=== PATIENT | male | born 1965 | race Caucasian/White ===

== ENCOUNTER 2017-04-22 17:34 | Inpatient (IN) | payer OTHER ==
[~2017-04-22] VITALS: Ht 165.1 cm; Wt 74.9 kg
--- NOTE | ~2017-04-22 | PR ---
[place], [place] PROGRESS NOTE NAME: LISSETH WELLS SR [facility] #: [id number] UNIT #: [id number] ROOM: 404 DOCTOR: JF DE SANTIAGO MD BIRTHDATE: [birth year] DOS: 04/24/2017 CARDIOLOGY PROGRESS NOTE SUBJECTIVE: The patient was seen at his bedside today with multiple family members in attendance. He is a 51-year-old man with a history of heavy cigarette abuse and daily alcohol consumption. He states that he smokes 10 packs of cigarettes a day. He had no previous history of heart disease. He presented to the hospital with worsening dyspnea. He was found to be in atrial fibrillation with a rapid ventricular response. We have been treating him with diltiazem and digoxin, but thus far, he has not converted to sinus rhythm. His rates are somewhat better controlled today, however, with his rates between 80 and 100. He does feel better and is breathing more easily. He denies any chest pain or peripheral edema. PHYSICAL EXAMINATION: VITAL SIGNS: Today, his pulse is 88 and irregularly irregular, blood pressure is 114/56. He is afebrile. He weighs 74.9 kilograms. NECK: Supple. He has no jugular distention. LUNGS: Respirations are unlabored. His chest is clear to auscultation and percussion. HEART: Has an irregularly irregular rhythm. PMI is not felt. He has no gallops or murmurs. ABDOMEN: Soft. EXTREMITIES: Showed no edema. IMPRESSION: 1. Newly documented atrial fibrillation with rapid ventricular response. 2. Heavy cigarette abuse. The patient claims to smoke a carton of cigarettes daily (200 cigarettes daily). 3. Probable chronic obstructive pulmonary disease. 4. Status post cholecystectomy. PLAN: I will start him on oral diltiazem and continue digoxin orally today as well. We will check a digoxin level in the morning. We will continue him on full-dose Lovenox for stroke prophylaxis at this time. We will give him another fluid bolus since this did seem to help stabilize his blood pressure yesterday. I am still hoping that he will convert spontaneously to sinus rhythm. Within the next 24 hours, he should have an echocardiogram done. If his left ventricular size and function appear normal and his left atrium is not significantly dilated, then effort should be made, including possible MECHELLE-guided cardioversion, to get him back in the sinus rhythm. For now, we are keeping him on Lovenox for stroke prophylaxis. He may not be the most ideal candidate for long-term anticoagulation given his history of alcohol and cigarette abuse. Sinus rhythm, however, I think will help improve his feelings of well-being. He was strongly advised to stop smoking and drinking, but it remains to be seen [place], [place] PROGRESS NOTE NAME: LISSETH WELLS SR UNIT #: [id number] ROOM: 404 DOCTOR: JF DE SANTIAGO MD BIRTHDATE: [birth year] whether he will be able to do this. I thank the hospitalist physicians for asking our advice regarding his care. JF DE SANTIAGO MD CM:PNTRANS [id number] JF DE SANTIAGO MD 04/26/17 0615 interface
--- NOTE | ~2017-04-22 | PR ---
[place], [place] PROGRESS NOTE NAME: LISSETH WELLS SR UNIT #: [id number] ROOM: 404 DOCTOR: JESUS DELONG MD BIRTHDATE: [birth year] DOS: 04/25/2017 SUBJECTIVE: The patient is sitting up in chair, he appears to be slightly emotional today. Denies though any specific cardiac complaint. No symptomatic palpitation, no chest pain, no chest pressure, no heaviness or tightness. Significant tremors can be seen. OBJECTIVE: VITAL SIGNS: Blood pressure 99/62, heart rate (heart rate on the monitor in the 90s and ____) 68, respiratory rate of 18, temperature 98.3. NECK: Good upstroke, no bruit. HEART: S1, S2 with no rub. LUNGS: Clear to auscultation. Significant decrease in air movement. No wheezing or rales. ABDOMEN: Soft, nontender, present bowel sounds. EXTREMITIES: Lower extremities, no significant edema. LABORATORY DATA: Potassium 4.3, GFR more than 60%. INR 1.1. ASSESSMENT AND PLAN: 1. New onset atrial fibrillation that appeared to be asymptomatic in a patient with significant history of alcohol and tobacco abuse. The patient continued to be asymptomatic. There is some difficulty in controlling the patient's heart rate, for that we will plan for transesophageal echocardiogram along with cardioversion prior to his discharge home. Echocardiogram still pending and I will recheck in the result this afternoon. For now in view of patient's heart rate, I will proceed to add Lopressor 12.5 mg every 8 hours with holding parameters for systolic blood pressure less than 90. Also, I will plan to add some antiarrhythmic medication given patient's history of alcohol and tobacco abuse, but following the results of the echocardiogram. 2. Tobacco abuse, cessation was emphasized. 3. Alcohol abuse. I will defer management to PCP. 4. History of chronic obstructive pulmonary disease, again management will be deferred to PCP. 5. Increase activity after cardioversion and early followup with Dr. Donato upon discharge within 2-4 weeks. [place], [place] PROGRESS NOTE NAME: LISSETH WELLS SR UNIT #: [id number] ROOM: 404 DOCTOR: JESUS DELONG MD BIRTHDATE: [birth year] JESUS DELONG MD CM:PNTING [id number] JESUS DELONG MD 04/26/17 1713 interface
--- NOTE | ~2017-04-22 | CON ---
[place], [place] REPORT OF CONSULTATION NAME[id number] UN[facility] #: [id number] ROOM: 416 DOCTOR: JF DE SANTIAGO MD BIRTHDATE: [birth year] DOS: 04/23/2017 REASON FOR CONSULTATION: Atrial fibrillation with rapid ventricular response. HISTORY OF PRESENT ILLNESS: The patient is a 51-year-old man who had no previous history of heart disease. He does have a history of heavy cigarette abuse and heavy alcohol consumption. He states that he smokes 10 packs of cigarettes a day. He states that up until a year or so ago, he was smoking 3-4 packs a day, but then his became ill and of cancer and since then he has been smoking much more. He also drinks on a daily basis. He has no previous history of coronary artery disease, myocardial infarction or stroke and has no history of rheumatic fever or heart failure. He states that he has been getting progressively more dyspneic lately. In the last week, especially he has been extremely dyspneic. He had a hard time walking across a room. In addition, he began complaining of a right-sided and then left-sided chest pain radiating into his back. His family became very concerned and insisted that he come to the emergency room. In the emergency room, he was found to be in atrial fibrillation with a rapid ventricular response and was admitted for further care. The patient denies any palpitations or syncope. He denies nausea or vomiting, but he has had diarrhea. He denies diaphoresis. He does complain of fatigue. PAST MEDICAL HISTORY: Includes 1. Essential hypertension. 2. Heavy cigarette abuse with obstructive lung disease. 3. History of cholecystectomy. FAMILY HISTORY: The patient's mother of colon cancer at age 54. His father in his 50s from lung cancer. REVIEW OF SYSTEMS: The patient denies diplopia or loss of vision. He denies focal weakness. He denies lightheadedness or syncope. He has had orthopnea. He has had a persistent cough, which is nonproductive. He denies any hemoptysis or hematemesis. He denies any focal weakness. He denies nausea or vomiting. He denies fevers, chills or sweats. He has been fatigued lately and has had progressively worsening shortness of breath. He denies change in bowel or bladder habits, although he does have diarrhea. He denies blood in his stools or urine. He denies any peripheral edema. He denies any hot or swollen joints. He has not had heat or cold intolerance and denies polyuria or polydipsia. Remainder of the review of systems is negative except as noted above. MEDICATIONS PRIOR TO ADMISSION: The patient stopped going to physicians about 3-4 years ago and has not taken any medications recently. ALLERGIES: The patient has no known drug allergies. SOCIAL HISTORY: The patient lives alone, but has family nearby. As noted above, he does smoke 10 packs of cigarettes per day and does consume [place], [place] REPORT OF CONSULTATION NAME: LISSETH WELLS SR UNIT #: [id number] ROOM: [facility] DOCTOR: JF DE SANTIAGO MD BIRTHDATE: [birth year] considerable amounts of alcohol, but denies the use of any illegal drugs. PHYSICAL EXAMINATION: GENERAL: Reveals a well-nourished white male who looks much older than his stated age. VITAL SIGNS: Pulse is 100 and irregularly irregular. Blood pressure is 100/58. He is afebrile. He weighs 74.9 kg and has a body mass index of 27.5. HEENT: Normocephalic, atraumatic. Extraocular muscles are intact. Sclerae are clear. Pupils are equal, round and react to light. The oral mucosa is moist. Tongue is midline. NECK: Supple. He has no jugular distention or hepatojugular reflux. Carotids are full. I heard no bruits. He had no neck or supraclavicular masses. No thyromegaly. LUNGS: Respirations are unlabored. His chest is clear to auscultation and percussion. He has markedly decreased breath sounds bilaterally, but no obvious wheezes or rales. He has no presacral edema or chest wall tenderness. CARDIOVASCULAR: His heart has an erratic irregularly irregular rhythm, which is slightly accelerated. There are no murmurs or gallops. The PMI is not displaced. There is no precordial heave, lift or thrill. ABDOMEN: Soft and normoactive without masses, organomegaly or bruits. EXTREMITIES: Showed no edema. Peripheral pulses are surprisingly full in the feet and he has normal hair growth on his feet. He has no palpable cords or cyanosis and no clubbing. LABORATORY DATA: I reviewed his electrocardiogram, which showed atrial fibrillation with rapid ventricular response. He does have low voltage in the limb leads and nonspecific ST and T-wave changes. A single troponin level was normal. IMPRESSION: 1. Newly documented atrial fibrillation with rapid ventricular response. 2. Marginal blood pressure, which may be due to dehydration, poor cardiac output, etc. 3. Heavy cigarette abuse. The patient claims to smoke 10 packs of cigarettes (1 carton of cigarettes) daily. 4. Probable chronic obstructive pulmonary disease. 5. Status post cholecystectomy. PLAN: We will continue our efforts to control the patient's rate over the weekend. He is on full dose Lovenox for stroke prophylaxis and we will continue to treat him with IV diltiazem for rate control. I will give him a fluid bolus to help improve his blood pressure and we will also start him on digoxin to hopefully control his rate better. With any luck, he will convert spontaneously; however, if he does not, then I would strongly consider a MECHELLE-guided cardioversion early this coming week. We will get a regular echocardiogram as soon as it is available within the next 2 days. Thyroid profile is already obtained and normal. Further recommendations will depend upon his response to therapy and the results of his noninvasive studies. [place], [place] REPORT OF CONSULTATION NAME: PRISCILLA SRLISSETH Rosana UNIT #: [id number] ROOM: 416 DOCTOR: JF DE SANTIAGO MD BIRTHDATE: [birth year] I thank the hospitalist physicians for asking our advice regarding his care. JF DE SANTIAGO MD CM:CONSTR:REPORT OF CONSULTATION 1453 04/23/17 1746 interface
[2017-04-22 17:40] VITALS: BP 138/84
[2017-04-22 18:07] LABS: BASO % 0.4 % (0.0-1.0); EOS % 0.3 % (1.0-4.0); HEMATOCRIT 47.2 % (42.0-52.0); HEMOGLOBIN 16.5 g/dl (14.0-18.0); LYMPH # 2.9 10*3/uL (1.3-4.4); LYMPH % 28.1 % (27.0-41.0); MEAN CELL VOLUME 84.3 fl (80.0-94.0); MEAN CORPUSCULAR HGB 29.5 pg (27.0-31.0); MEAN PLATELET VOLUME 9.7 fl (9.6-12.3); MONO # 0.9 10*3/uL (0.1-1.0); MONO % 8.3 % (3.0-9.0); NEUT # 6.4 10*3/uL (2.3-7.9); NEUT % 62.7 % (47.0-73.0); PLATELET COUNT AUTOMATED 271 10*3/uL (130-400); RED CELL DISTRI WIDTH 13.9 % (0-14.5); WHITE BLOOD COUNT 10.2 10*3/uL (4.8-10.8)
[2017-04-22 18:23] LABS: ALBUMIN 3.5 gm/dl (3.1-4.5); ALKALINE PHOSPHATASE 122 U/L (45-117); BUN 10 mg/dl (7-24); CHLORIDE 105 mmol/L (98-107); POTASSIUM 3.6 mmol/L (3.5-5.1); SGOT/AST 25 IU/L (3-35); SGPT/ALT 38 U/L (12-78); SODIUM 138 mmol/L (136-145); TOTAL PROTEIN 7.5 gm/dL (6.4-8.2)
[2017-04-22 18:24] LABS: TROPONIN I < 0.015 ng/ml (<0.045)
[2017-04-22 18:34] VITALS: BP 144/87
[2017-04-22 18:54] VITALS: BP 116/93
[2017-04-22 18:58] LABS: ACT PARTIAL THROMBO TIME 24.4 SECONDS (20.8-31.5); INTERNATIONAL NORM RATIO 1.1 (2.0-3.5)
[2017-04-22 19:31] VITALS: BP 124/84
--- NOTE | 2017-04-22 19:43 | NUR ---
CARDIZEM TITRATED TO 15MG/HR
[2017-04-22 20:02] VITALS: BP 115/83
[2017-04-22 21:00] VITALS: BP 122/90
--- NOTE | 2017-04-22 21:00 | NUR ---
A 51, admitted to 4E, under the services of BORIS Mcmanus DO with a diagnosis of AFIB W/RVR. Chief complaint is SHORTNESS OF BREATH,RT SIDED RIB PAIN AROUND TO BACK. Patient arrived via ambulatory from ER. Monitor applied. Initial assessment completed. Vital signs taken and recorded. BORIS MCMANUS DO notified of admission to the unit. Orders received. See assessment for past medical history, medications and allergies. Patient and/or family oriented to unit. [facility] visitation policy reviewed. Clothing/patient valuable form completed. ASPEN URRUTIA
--- NOTE | 2017-04-22 21:01 | NUR ---
PATIENT STATED HE DOESNT TAKE ANY HOME MEDICATIONS, BUT HAD A LIST OF MEDS HE TOOK 3YRS AGO. BUSPIRONE 15MG DAILY,OMEPRAZOLE 20MG DAILY,MONTELUKAST 10MG DAILY,VENTAFAXINE ER 75MG DAILY,HYDROXYZINE PAMOATE 50MG BID,LISINOPRIL 5MG DAILY,BROMIDE INHALATION SOLUTION 0.5,ALBUTEROL 2.5MG TID,QVAR 80MCG BID.
--- NOTE | 2017-04-22 21:31 | NUR ---
CONTACTED DR. DE SANTIAGO FOR CONSULT WILL SEE PATIENT IN THE MORNING.
[2017-04-23] VITALS (12 sets, daily range): BP systolic 94–115; BP diastolic 56–78
[2017-04-23 05:15] LABS: ACT PARTIAL THROMBO TIME 25.2 SECONDS (20.8-31.5); INTERNATIONAL NORM RATIO 1.1 (2.0-3.5)
[2017-04-23 05:36] LABS: ALBUMIN 3.5 gm/dl (3.1-4.5); ALKALINE PHOSPHATASE 116 U/L (45-117); BUN 7 mg/dl (7-24); CHLORIDE 100 mmol/L (98-107); CHOLESTEROL 136 mg/dL (<200); CREATININE 0.77 mg/dL (0.70-1.30); FREE T4 1.26 ng/dl (0.76-1.46); HDL CHOLESTEROL 39 mg/dl (40-60); LDL CHOLESTEROL 76 mg/dL (9-159); MAGNESIUM 2.2 mg/dL (1.5-2.1); PHOSPHOROUS 2.8 mg/dL (2.5-4.9); POTASSIUM 3.1 mmol/L (3.5-5.1); SGOT/AST 19 IU/L (3-35); SGPT/ALT 36 U/L (12-78); SODIUM 137 mmol/L (136-145); TOTAL PROTEIN 7.5 gm/dL (6.4-8.2); TRIGLYCERIDES 104 mg/dl (<150); VLDL CHOLESTEROL 21 mg/dL (6-40)
[2017-04-23 05:48] LABS: BASO % 0.4 % (0.0-1.0); EOS % 0.4 % (1.0-4.0); HEMOGLOBIN 15.8 g/dl (14.0-18.0); LYMPH # 2.8 10*3/uL (1.3-4.4); LYMPH % 27.1 % (27.0-41.0); MEAN CELL VOLUME 86.7 fl (80.0-94.0); MEAN CORPUSCULAR HGB 29.2 pg (27.0-31.0); MEAN CORPUSCULAR HGB CONC 33.6 g/dl (33.0-37.0); MEAN PLATELET VOLUME 10.3 fl (9.6-12.3); MONO # 0.6 10*3/uL (0.1-1.0); MONO % 6.1 % (3.0-9.0); NEUT # 6.8 10*3/uL (2.3-7.9); NEUT % 65.6 % (47.0-73.0); PLATELET COUNT AUTOMATED 251 10*3/uL (130-400); RED BLOOD COUNT 5.42 10*6/uL (4.50-5.90); WHITE BLOOD COUNT 10.3 10*3/uL (4.8-10.8)
[2017-04-23 07:05] LABS: VITAMIN D, 25-HYDROXY 9.3 ng/mL (30-100)
--- NOTE | 2017-04-23 11:01 | NUR ---
PT DENIES TAKING ANY HOME MEDS.
--- NOTE | 2017-04-23 12:31 | NUR ---
BP 94/[address] DE SANTIAGO AND HE STATED SINCE HE HAS NOT SEEN THE PT YET THEN TO NOTIFY THE ATTENDING AND HAVE THEM MANAGE. SPOKE TO DR VAIL AND HE STATED TO TITRATE PT DOWN BY 5 AND MONITOR.
--- NOTE | 2017-04-23 16:15 | NUR ---
PT UP TO RR AND HR INCREASED TO 150. IV DIGOXIN GIVEN AT THIS TIME ORDERED UPON RETURN FROM RR. WILL CONT TO MONITOR.
--- NOTE | 2017-04-23 21:10 | NUR ---
PATIENT SITTING UP IN BED, VERY ANXIOUS. STATED HE THINKS IF HE GOES TO SLEEP HE IS GOING TO . HASNT SLEPT IN AWHILE. PATIENT STATED HE HAS ALWAYS TAKEN CARE OF HIS UNTIL HER , AND NEVER TOOK CARE OF HIMSELF. SPOKE WITH DR. DIAMOND AND RECEIVED NEW ORDER FOR ATIVAN. WAS GIVEN TO PATIENT. WILL MONITOR AND REASSESS.
--- NOTE | 2017-04-23 23:00 | NUR ---
PATIENT STILL AWAKE, LESS ANXIOUS. STATED HE WAS STARTING TO FEEL BETTER. ATIVAN EFFECTIVE.
[2017-04-24] VITALS (7 sets, daily range): BP systolic 100–120; BP diastolic 56–81
--- NOTE | 2017-04-24 01:18 | NUR ---
24 HR chart check completed.
[2017-04-24 05:32] LABS: BUN 12 mg/dl (7-24); CHLORIDE 100 mmol/L (98-107); CREATININE 0.73 mg/dL (0.70-1.30); POTASSIUM 3.7 mmol/L (3.5-5.1); SODIUM 135 mmol/L (136-145)
[2017-04-24 05:51] LABS: HEMATOCRIT 42.2 % (42.0-52.0); HEMOGLOBIN 14.1 g/dl (14.0-18.0); MEAN CELL VOLUME 84.7 fl (80.0-94.0); MEAN CORPUSCULAR HGB 28.3 pg (27.0-31.0); MEAN CORPUSCULAR HGB CONC 33.4 g/dl (33.0-37.0); MEAN PLATELET VOLUME 10.5 fl (9.6-12.3); PLATELET COUNT AUTOMATED 246 10*3/uL (130-400); RED BLOOD COUNT 4.98 10*6/uL (4.50-5.90); WHITE BLOOD COUNT 18.1 10*3/uL (4.8-10.8)
[2017-04-24 07:03] LABS: PLATELET SUFFICIENCY NORMAL (NORMAL); TOTAL CELLS COUNTED 100 #CELLS
--- NOTE | 2017-04-24 12:22 | NUR ---
SWAPNIL LÓPEZ SHOE PLANNER, NOTIFIED OF CONSULT FOR DR. MERCADO.
--- NOTE | 2017-04-24 19:56 | NUR ---
PATIENT AWAKE IN BED AT THIS TIME. A&OX3. PATIENT DENIES ANY CHEST PAIN/PRESSURE, SOB, OR GENERALIZED DISCOMFORT AT THIS TIME. PATIENT ENCOURAGED TO LET RN START SECOND IV. EDUCATED ABOUT POLICY/RATIONALE. PATIENT STATES HE DOES NOT WANT A SECOND IV SITE. STATES HE DOESN'T EVEN WANT THE ONE HE HAS. RN TRIED TO ENCOURAGE/EXPLAIN FURTHER. PATIENT STATES HE WILL BE GETTING OFF CARDIZEM GTT SOON AND DOES NOT NEED ANOTHER SITE.
[2017-04-25] VITALS (8 sets, daily range): BP systolic 99–126; BP diastolic 49–68
--- NOTE | 2017-04-25 04:06 | NUR ---
PATIENT ASLEEP IN BED, AROUSES EASILY. NO VOICED COMPLAINTS AT THIS TIME. WILL MONITOR. CALL LIGHT IN REACH.
--- NOTE | 2017-04-25 05:47 | NUR ---
PATIENT'S HR SUSTAINING ABOVE 120 AT THIS TIME. PATIENT IS UP OUT OF BED. PATIENT DENIES ANY PALPATIONS, CHEST PAIN/PRESSURE, OR ANY OTHER NEW SYMPTOMS. CARDIZEM GTT TURNED UP TO 7.5 ML/HR AT CURRENT TIME. WILL BE BACK IN TO CHECK PATIENT SHORTLY.
--- NOTE | 2017-04-25 06:33 | NUR ---
PATIENT'S IV SITE INFILTRATED. NEW 22 IV SITE STARTED IN LEFT FOREARM. PATIENT STILL REFUSING SECOND IV SITE AT THIS TIME. CARDIZEM GTT RESTARTED AT 5 ML/HR. WILL MONITOR. BP 115/66. CALL LIGHT LEFT IN REACH.
[2017-04-25 06:52] LABS: BUN 20 mg/dl (7-24); CHLORIDE 102 mmol/L (98-107); CREATININE 0.74 mg/dL (0.70-1.30); POTASSIUM 4.3 mmol/L (3.5-5.1); SODIUM 137 mmol/L (136-145)
--- NOTE | 2017-04-25 08:30 | NUR ---
Clock Repairer in to talk to patient. Patient states lives at HOME [address] with HIS CHILDREN. There are 10 steps in the home. Physician: DR ROSARIO-HAS NOT SEEN YET BUT STATES HE WILL MAKE APPT Pharmacy: [facility] PT HASN T MEDS FILLED IN 4 YEARS Home health services: NONE Patient's level of ADLs: INDEPENDENT Patient has working utilities: YES DME: NONE Follow-up physician's appointment after d/c: WILL MAKE HIS OWN PER PT Does patient want to access PORTAL?: Discharge plan HOME. NIMESH LAW
--- NOTE | 2017-04-25 09:40 | NUR ---
[facility]-NO COPAY ON XARELTO. DR BRODY INFORMED.
--- NOTE | 2017-04-25 15:32 | NUR ---
SPOKE TO DR ARTEAGA REGARDING MY CONCERNS WITH THE D/C ORDER. I ASKED IF THEY HAD VIEWED THE STAT EKG ORDERED BY DR YANG. PT WAS IN AFIB AGAIN 80'S TO HIGH 90'S AND HADN'T ACTUALLY BEEN IN NSR LONG. I EXPLAINED THAT PT WAS IN AFIB. DR ARTEAGA EXPLAINED THIS WAS A CONTROLLED RATE THROUGH PO MEDS AND HE COULD GO HOME AND HE PERSONALLY SPOKE TO DR YANG.PT D/C'D PER PHYSICIAN ORDER.
[2017-04-25] MEDS ORDERED: LOPRESSOR25 MG PO (16:08)
[2017-04-25] MEDS ORDERED: XARE20MG PO (16:08)
[2017-04-25] MEDS ORDERED: CARDIZEM CD120 M2 PO (16:08)
[2017-04-25] MEDS ORDERED: DOXYCYCLINE100 M3 PO (16:08)
[2017-04-25] MEDS ORDERED: PREDNISONE10 MG PO (16:08)
[2017-04-25] MEDS ORDERED: DULE1ARO INH (16:08)
[2017-04-25] MEDS ORDERED: PROVENTIL HFA6.7 GM INH (16:09)
== END 2017-04-25 15:32 | disposition home or self-care (01) | DRG 871 ==
LOC: ED 17:34 → EDHOLD 19:30 → 4E 19:30
PROVIDERS: Family Medicine; Internal Medicine; Internal Medicine Cardiovascular Disease; Physician Assistant; ADMIT Internal Medicine
DX: A41.9 Sepsis, unspecified organism (principal); J18.9 Pneumonia, unspecified organism; J44.1 Chronic obstructive pulmonary disease with (acute) exacerbation; J44.0 Chronic obstructive pulmonary disease with (acute) lower respiratory infection; F10.10 Alcohol abuse, uncomplicated; I48.91 Unspecified atrial fibrillation; E87.6 Hypokalemia; F17.210 Nicotine dependence, cigarettes, uncomplicated; I10 Essential (primary) hypertension; E83.41 Hypermagnesemia; Y90.9 Presence of alcohol in blood, level not specified; Z71.6 Tobacco abuse counseling; Z90.49 Acquired absence of other specified parts of digestive tract; Z82.5 Family history of asthma and other chronic lower respiratory diseases; Z82.49 Family history of ischemic heart disease and other diseases of the circulatory system; Z80.1 Family history of malignant neoplasm of trachea, bronchus and lung; Z80.0 Family history of malignant neoplasm of digestive organs; Z79.899 Other long term (current) drug therapy

== ENCOUNTER 2017-05-20 18:05 | Emergency (ER) | payer OTHER ==
[~2017-05-20] VITALS: Ht 167.6 cm; Wt 72.6 kg
[~2017-05-20 18:05] MED LIST: CARDIZEM CD120 M2 PO; DOXYCYCLINE100 M3 PO; DULE1ARO INH; LOPRESSOR25 MG PO; PREDNISONE10 MG PO; PROVENTIL HFA6.7 GM INH; XARE20MG PO
[2017-05-20 18:22] VITALS: BP 120/80
[2017-05-20] MEDS ORDERED: 'PARAFON FORTE500 M1 PO (19:07)
== END 2017-05-20 19:11 | disposition home or self-care (01) ==
LOC: ED 18:05
DX: M54.5 Low back pain (principal); I48.91 Unspecified atrial fibrillation; J44.9 Chronic obstructive pulmonary disease, unspecified; I10 Essential (primary) hypertension; F17.210 Nicotine dependence, cigarettes, uncomplicated

== ENCOUNTER → 2017-05-30 | Day surgery (SDC) | payer OTHER ==
[~2017-05-30] VITALS: Ht 167.6 cm; Wt 68.0 kg
[~2017-05-30] MED LIST changes: +'PARAFON FORTE500 M1 PO
--- NOTE | ~2017-05-30 | O ---
[place], [place] OPERATIVE NOTE [id number] #[facility] [id number] ROOM: DOCTOR: JF DE SANTIAGO MD BIRTHDATE: [birth year] DOS: 05/30/2017 PROCEDURE: MECHELLE guided cardioversion. INDICATIONS: Atrial fibrillation, diastolic congestive heart failure. PROCEDURE IN DETAIL: Informed consent was obtained from the patient. He was brought to the operating room in a post-absorptive state. Continuous electrocardiographic and oximetric monitoring were initiated along with noninvasive blood pressure monitoring. The patient was then anesthetized by Anesthesia staff. When a satisfactory degree of sedation was obtained, the transesophageal transducer was inserted through his mouth to the level of the stomach without difficulty. Images were obtained in a standard fashion. He was found to have a patent foramen ovale with left to right shunt. The size of the shunt was trivial. He had a normal size left ventricle with mild global hypokinesis. There was mild mitral insufficiency. No other abnormalities were noted. Specifically, there was no clot in the left atrium or left atrial appendage. The transducer was then removed. The patient was placed on his back and he was given a single synchronized biphasic shock utilizing AP pads at a dose of 100 watt seconds. He converted immediately into sinus rhythm and remained in sinus rhythm for the duration of observation. IMPRESSION: 1. Successful biphasic synchronized cardioversion. 2. Patent foramen ovale with trivial left to right shunting and no demonstrable right to left shunting. 3. No cardiac source of emboli seen. 4. Atherosclerosis of the descending thoracic aorta at about the level of the diaphragm with some mobile atheroma noted at that point. JF DE SANTIAGO MD CM:OPRECORD:OPERATIVE NOTE 1205 1228 JF DE SANTIAGO MD 05/30/17 1226 interface
[2017-05-30 10:30] VITALS: BP 103/66
[2017-05-30 11:45] VITALS: BP 103/66
[2017-05-30 12:00] VITALS: BP 90/57
[2017-05-30 12:15] VITALS: BP 90/57
== END | disposition home or self-care (01) ==
LOC: SDC 05-27 08:00
DX: I48.91 Unspecified atrial fibrillation (principal); I50.30 Unspecified diastolic (congestive) heart failure; I34.0 Nonrheumatic mitral (valve) insufficiency; I70.0 Atherosclerosis of aorta; F32.9 Major depressive disorder, single episode, unspecified; I10 Essential (primary) hypertension; F41.9 Anxiety disorder, unspecified; J43.9 Emphysema, unspecified; Z82.49 Family history of ischemic heart disease and other diseases of the circulatory system; Z80.9 Family history of malignant neoplasm, unspecified; F17.210 Nicotine dependence, cigarettes, uncomplicated

== ENCOUNTER → 2017-06-21 | Outpatient (CLI) | payer OTHER | END | disposition home or self-care (01) | LOC: RESCLI 13:11 | DX: M54.5 Low back pain (principal); R10.13 Epigastric pain; I10 Essential (primary) hypertension; I48.91 Unspecified atrial fibrillation; J44.9 Chronic obstructive pulmonary disease, unspecified ==

== ENCOUNTER → 2017-06-28 | Outpatient (CLI) | payer OTHER | END | disposition home or self-care (01) | LOC: CT 01:33 | DX: R10.13 Epigastric pain (principal); R10.31 Right lower quadrant pain; R10.32 Left lower quadrant pain; Z90.49 Acquired absence of other specified parts of digestive tract ==

== ENCOUNTER → 2017-07-05 | Outpatient (CLI) | payer OTHER ==
[~2017-07-05] MED LIST changes: +ATIVAN1 MG PO; +OXYCODONE5 M1 PO; +TEMAZEPAM15 M1 PO; +VENTOLIN 02.5 MG/3 M INH; +VITAMIN D5000 UNIT PO
== END | disposition home or self-care (01) ==
LOC: RESCLI 01:44
DX: C78.7 Secondary malignant neoplasm of liver and intrahepatic bile duct (principal); C79.51 Secondary malignant neoplasm of bone; I10 Essential (primary) hypertension; I48.91 Unspecified atrial fibrillation; J44.9 Chronic obstructive pulmonary disease, unspecified

== ENCOUNTER → 2017-07-11 | Outpatient (CLI) | payer OTHER ==
[2017-07-11] VITALS (10 sets, daily range): BP systolic 106–125; BP diastolic 65–89
[2017-07-11 09:21] LABS: BASO % 0.3 % (0.0-1.0); EOS # 0.1 10*3/uL (0.0-0.4); EOS % 0.6 % (1.0-4.0); HEMOGLOBIN 15.1 g/dl (14.0-18.0); LYMPH # 1.6 10*3/uL (1.3-4.4); LYMPH % 16.6 % (27.0-41.0); MEAN CELL VOLUME 82.3 fl (80.0-94.0); MEAN CORPUSCULAR HGB 27.6 pg (27.0-31.0); MEAN CORPUSCULAR HGB CONC 33.6 g/dl (33.0-37.0); MEAN PLATELET VOLUME 9.8 fl (9.6-12.3); MONO # 0.6 10*3/uL (0.1-1.0); MONO % 6.5 % (3.0-9.0); NEUT # 7.1 10*3/uL (2.3-7.9); NEUT % 75.7 % (47.0-73.0); PLATELET COUNT AUTOMATED 273 10*3/uL (130-400); RED BLOOD COUNT 5.47 10*6/uL (4.50-5.90); RED CELL DISTRI WIDTH 14.6 % (0-14.5); WHITE BLOOD COUNT 9.4 10*3/uL (4.8-10.8)
[2017-07-11 09:34] LABS: ACT PARTIAL THROMBO TIME 25.4 SECONDS (20.8-31.5); INTERNATIONAL NORM RATIO 1.1 (2.0-3.5)
== END | disposition home or self-care (01) ==
LOC: LAB 00:51 → SDC 14:00 → LAB 14:00 → EDSTATUS 14:00
PROVIDERS: Internal Medicine
DX: C78.7 Secondary malignant neoplasm of liver and intrahepatic bile duct (principal)

== ENCOUNTER → 2017-07-12 | Outpatient (CLI) | payer OTHER ==
[2017-07-12 13:17] LABS: BASO % 0.4 % (0.0-1.0); EOS % 0.3 % (1.0-4.0); HEMATOCRIT 43.4 % (42.0-52.0); HEMOGLOBIN 14.6 g/dl (14.0-18.0); LYMPH # 1.6 10*3/uL (1.3-4.4); MEAN CELL VOLUME 83.1 fl (80.0-94.0); MEAN CORPUSCULAR HGB CONC 33.6 g/dl (33.0-37.0); MEAN PLATELET VOLUME 10.2 fl (9.6-12.3); MONO # 0.8 10*3/uL (0.1-1.0); MONO % 8.2 % (3.0-9.0); NEUT # 6.7 10*3/uL (2.3-7.9); NEUT % 72.9 % (47.0-73.0); PLATELET COUNT AUTOMATED 264 10*3/uL (130-400); RED BLOOD COUNT 5.22 10*6/uL (4.50-5.90); RED CELL DISTRI WIDTH 14.6 % (0-14.5); WHITE BLOOD COUNT 9.1 10*3/uL (4.8-10.8)
[2017-07-12 13:50] LABS: ALBUMIN 3.4 gm/dl (3.1-4.5); ALKALINE PHOSPHATASE 234 U/L (45-117); BUN 10 mg/dl (7-24); CHLORIDE 102 mmol/L (98-107); CREATININE 0.78 mg/dL (0.70-1.30); POTASSIUM 3.5 mmol/L (3.5-5.1); SGOT/AST 43 IU/L (3-35); SGPT/ALT 66 U/L (12-78); SODIUM 137 mmol/L (136-145); TOTAL PROTEIN 7.7 gm/dL (6.4-8.2)
[2017-07-13 06:11] LABS: TOTAL PROTEIN, SERUM 6.9 g/dL (6.0-8.5)
[2017-07-13 16:10] LABS: A/G RATIO 1.2 (0.7-1.7); ALBUMIN 3.7 g/dL (2.9-4.4); ALBUMIN, URINE 34.8 % (.); ALPHA-1-GLOBULIN 0.4 g/dL (0.0-0.4); ALPHA-1-GLOBULIN, URINE 4.8 % (.); BETA GLOBULIN, URINE 29.9 % (.); GAMMA GLOBULIN 0.8 g/dL (0.4-1.8); GAMMA GLOBULIN, URINE 15.5 % (.); GLOBULIN, TOTAL 3.2 g/dL (2.2-3.9); M-SPIKE Not Observed g/dL (Not Observed); M-SPIKE, % Not Observed % (Not Observed); PROTEIN,TOTAL - URINE RANDOM 20.5 mg/dL (Not Estab.)
== END | disposition home or self-care (01) ==
LOC: LAB 12:42
PROVIDERS: Internal Medicine Hematology & Oncology
DX: C76.8 Malignant neoplasm of other specified ill-defined sites (principal)

== ENCOUNTER → 2017-07-19 | Outpatient (CLI) | payer OTHER | END | disposition home or self-care (01) | LOC: RESCLI 01:05 | DX: C78.7 Secondary malignant neoplasm of liver and intrahepatic bile duct (principal); C80.1 Malignant (primary) neoplasm, unspecified; F41.9 Anxiety disorder, unspecified; G47.00 Insomnia, unspecified; I48.91 Unspecified atrial fibrillation; I10 Essential (primary) hypertension; J44.9 Chronic obstructive pulmonary disease, unspecified ==

== ENCOUNTER 2017-08-03 11:01 | Emergency (ER) | payer OTHER ==
[~2017-08-03] VITALS: Wt 72.6 kg
--- NOTE | ~2017-08-03 | EKG ---
[place], [place] ELECTROCARDIOGRAM REPORT NAME: LISSETH WELLS SR UNIT #: [id number] ROOM: DOCTOR: RADHA WALKER MD BIRTHDATE: [birth year] DOS: 08/03/2017 TIME: 1433 hours. IMPRESSION: 1. Sinus rhythm. 2. Baseline artifacts. 3. Low voltage complexes in the limb leads. 4. Normal QT interval. RADHA WALKER MD CM:EKGRPT:ELECTROCARDIOGRAM REPORT 1424 1838 RADHA WALKER MD
--- NOTE | ~2017-08-03 | EKG ---
[place], [place] ELECTROCARDIOGRAM REPORT NAME: LISSETH WELLS SR UNIT #: [id number] ROOM: DOCTOR: RADHA WALKER MD BIRTHDATE: [birth year] DOS: 08/03/2017 TIME: 1116 hours IMPRESSION: 1. Sinus rhythm. 2. Baseline artifact. 3. Low voltage complexes in the limb leads. 4. Normal QT interval. RADHA WALKER MD CM:EKGRPT:ELECTROCARDIOGRAM REPORT 1422 1835 RADHA WALKER MD
[2017-08-03 11:18] LABS: BASO # 0.1 10*3/uL (0.0-0.1); BASO % 0.4 % (0.0-1.0); EOS # 0.1 10*3/uL (0.0-0.4); EOS % 0.5 % (1.0-4.0); HEMATOCRIT 45.4 % (42.0-52.0); HEMOGLOBIN 15.4 g/dl (14.0-18.0); LYMPH # 1.7 10*3/uL (1.3-4.4); LYMPH % 14.9 % (27.0-41.0); MEAN CELL VOLUME 81.5 fl (80.0-94.0); MEAN CORPUSCULAR HGB 27.6 pg (27.0-31.0); MEAN CORPUSCULAR HGB CONC 33.9 g/dl (33.0-37.0); MEAN PLATELET VOLUME 10.2 fl (9.6-12.3); MONO # 0.9 10*3/uL (0.1-1.0); MONO % 8.3 % (3.0-9.0); NEUT # 8.4 10*3/uL (2.3-7.9); NEUT % 75.5 % (47.0-73.0); PLATELET COUNT AUTOMATED 286 10*3/uL (130-400); RED BLOOD COUNT 5.57 10*6/uL (4.50-5.90); WHITE BLOOD COUNT 11.2 10*3/uL (4.8-10.8)
[2017-08-03 11:26] LABS: ACT PARTIAL THROMBO TIME 30.2 SECONDS (20.8-31.5); INTERNATIONAL NORM RATIO 1.2 (2.0-3.5)
[2017-08-03 11:59] LABS: ALBUMIN 3.5 gm/dl (3.1-4.5); ALKALINE PHOSPHATASE 325 U/L (45-117); BUN 12 mg/dl (7-24); CHLORIDE 99 mmol/L (98-107); CREATININE 0.91 mg/dL (0.70-1.30); POTASSIUM 3.9 mmol/L (3.5-5.1); SGOT/AST 87 IU/L (3-35); SGPT/ALT 81 U/L (12-78); SODIUM 136 mmol/L (136-145); TOTAL PROTEIN 8.4 gm/dL (6.4-8.2)
[2017-08-03 12:02] LABS: TROPONIN I < 0.015 ng/ml (<0.045)
[2017-08-03 12:56] VITALS: BP 128/76
[2017-08-03 13:05] LABS: BILIRUBIN NEGATIVE (NEGATIVE); BLOOD TRACE-INTACT (NEGATIVE); CLARITY CLEAR (CLEAR); COLOR YELLOW (YELLOW); GLUCOSE NEGATIVE (NEGATIVE); KETONE NEGATIVE (NEGATIVE); LEUKO ESTERASE NEGATIVE (NEGATIVE); NITRITE NEGATIVE (NEGATIVE); PH 5.5 (5.0-9.0); SPECIFIC GRAVITY 1.025 (1.005-1.030); UROBILINOGEN 0.2 E.U./dl (0.2-1.0)
[2017-08-03 13:28] LABS: CALCIUM OXALATE CRYSTALS 1+; MUCOUS 2+; RBC 0-2 rbc/hpf (0-2); WBC 0-2 wbc/hpf (0-5)
[2017-08-03] MEDS ORDERED: OXYCODONE HCL5 M1 PO (15:22)
[2017-08-03] MEDS ORDERED: OXYCONTIN10 M1 PO (15:22)
== END 2017-08-03 15:28 | disposition home or self-care (01) ==
LOC: ED 11:01
PROVIDERS: Emergency Medicine
DX: M54.5 Low back pain (principal); D49.9 Neoplasm of unspecified behavior of unspecified site; R10.30 Lower abdominal pain, unspecified; M25.511 Pain in right shoulder; I48.91 Unspecified atrial fibrillation; J44.9 Chronic obstructive pulmonary disease, unspecified; I10 Essential (primary) hypertension; Z79.899 Other long term (current) drug therapy

== ENCOUNTER → 2017-08-15 | Day surgery (SDC) | payer OTHER ==
[2017-08-11 11:38] LABS: BILIRUBIN 1+ (NEGATIVE); BLOOD TRACE-INTACT (NEGATIVE); CLARITY CLOUDY (CLEAR); COLOR YELLOW (YELLOW); GLUCOSE NEGATIVE (NEGATIVE); KETONE TRACE (NEGATIVE); LEUKO ESTERASE NEGATIVE (NEGATIVE); NITRITE POSITIVE (NEGATIVE); SPECIFIC GRAVITY 1.025 (1.005-1.030)
[2017-08-11 11:42] LABS: BASO % 0.4 % (0.0-1.0); EOS # 0.2 10*3/uL (0.0-0.4); EOS % 1.7 % (1.0-4.0); HEMATOCRIT 44.1 % (42.0-52.0); HEMOGLOBIN 14.8 g/dl (14.0-18.0); LYMPH # 1.4 10*3/uL (1.3-4.4); LYMPH % 14.2 % (27.0-41.0); MEAN CELL VOLUME 81.4 fl (80.0-94.0); MEAN CORPUSCULAR HGB 27.3 pg (27.0-31.0); MEAN CORPUSCULAR HGB CONC 33.6 g/dl (33.0-37.0); MEAN PLATELET VOLUME 10.4 fl (9.6-12.3); MONO # 0.8 10*3/uL (0.1-1.0); NEUT # 7.5 10*3/uL (2.3-7.9); NEUT % 75.2 % (47.0-73.0); PLATELET COUNT AUTOMATED 319 10*3/uL (130-400); RED BLOOD COUNT 5.42 10*6/uL (4.50-5.90); RED CELL DISTRI WIDTH 14.5 % (0-14.5)
[2017-08-11 11:47] LABS: BACTERIA 2+; CALCIUM OXALATE CRYSTALS 1+
[2017-08-11 12:07] LABS: ALBUMIN 3.4 gm/dl (3.1-4.5); ALKALINE PHOSPHATASE 322 U/L (45-117); BILIRUBIN, DIRECT 0.2 mg/dL (0.0-0.2); BUN 13 mg/dl (7-24); CHLORIDE 96 mmol/L (98-107); CREATININE 0.86 mg/dL (0.70-1.30); INTERNATIONAL NORM RATIO 1.4 (2.0-3.5); POTASSIUM 4.3 mmol/L (3.5-5.1); SGOT/AST 73 IU/L (3-35); SGPT/ALT 78 U/L (12-78); SODIUM 134 mmol/L (136-145); TOTAL PROTEIN 7.8 gm/dL (6.4-8.2)
[~2017-08-15] VITALS: Ht 167.6 cm; Wt 68.0 kg
[~2017-08-15] MED LIST changes: +ASMANEX220 MC1 INH; +DUONEB 3 MG/3 ML3 M1 INH; +Lopressor25 MG PO; +OXYCODONE HCL5 M1 PO; +OXYCONTIN10 M1 PO
--- NOTE | ~2017-08-15 | PROC NOTE ---
[place], [place] PROCEDURE NOTE [id number] #: [id number] ROOM: DOCTOR: KUSHAL NELSON MD BIRTHDATE: [birth year] DOS: PREOPERATIVE DIAGNOSIS: Left lung cancer. POSTOPERATIVE DIAGNOSIS: Left lung cancer. PROCEDURE: Right internal jugular MediPort placement. SURGEON: Kushal Nelson MD SAP BASIS ADMINISTRATOR: SUSIE. ANESTHESIA: MAC with local. INDICATIONS: This is a 52-year-old gentleman with a history of terminal lung cancer who is here for a MediPort placement for the purposes of chemotherapy. The procedure and its complications were explained to the patient in detail preoperatively. Complications that were discussed included but were not limited to bleeding, infection, hemothorax, pneumothorax and prolonged pain. He agreed to proceed. DESCRIPTION OF PROCEDURE: After identifying the patient, the patient was brought to the operating suite and laid in the supine position. After IV sedation was administered, the parts were painted and draped in the usual sterile fashion and a time-out procedure was called. With the help of an ultrasound probe and by using the Seldinger technique, the right-sided internal jugular vein was accessed, guidewire was placed and it was confirmed to be in good placement on fluoroscopy. Thereafter, a pocket was created on the anterior chest wall on the right side by injecting local. The skin and the subcutaneous tissue were incised and adequate pocket for the port was created. Thereafter, through this incision, the catheter was mounted on an introducer and then passed through the neck where the internal jugular vein was accessed. Thereafter, the sheath and dilator was passed over the wire and the wire was then removed. Through this dilator and sheath, the catheter was placed and it was found to be in good position on fluoroscopy. Thereafter it was cut to size and the port was attached to the end. Heparin was used to inject and was found to have good flow and also good draw of blood. Thereafter, this port was then fixed to the anterior chest wall with the help of 3-0 Prolene. The subcutaneous tissue was approximated with the help of 3-0 Vicryl in a running fashion and the skin edges were approximated with 4-0 Vicryl in a subcuticular running fashion. The port was accessed again through the skin and was found to have good flow and good blood draw. The edges of the skin in the neck were also approximated with the help of 4-0 Vicryl in a single subcuticular stitch. A dressing was placed. The patient tolerated the procedure well. There were no complications. Chest x-ray was ordered for postoperative recovery room. Dr. Kushal Nelson, the attending surgeon, was present throughout the operating case. [place], [place] PROCEDURE NOTE NAME: LISSETH WELLS SR UNIT #: [id number] ROOM: DOCTOR: KUSHAL NELSON MD BIRTHDATE: [birth year] Kushal Nelson MD CM:PROCNOTE:PROCEDURE NOTE 1224 1343 KUSHAL NELSON MD
[2017-08-15 09:50] VITALS: BP 155/72
[2017-08-15 11:45] VITALS: BP 107/66
[2017-08-15 11:59] VITALS: BP 104/66
[2017-08-15 12:09] VITALS: BP 102/60
== END | disposition home or self-care (01) ==
LOC: SDC 08-11 11:00
PROVIDERS: Surgery
DX: C34.92 Malignant neoplasm of unspecified part of left bronchus or lung (principal); F32.9 Major depressive disorder, single episode, unspecified; I10 Essential (primary) hypertension; F41.9 Anxiety disorder, unspecified; I48.91 Unspecified atrial fibrillation; J43.9 Emphysema, unspecified; Z90.49 Acquired absence of other specified parts of digestive tract; Z82.49 Family history of ischemic heart disease and other diseases of the circulatory system; Z80.9 Family history of malignant neoplasm, unspecified; Z87.891 Personal history of nicotine dependence

== ENCOUNTER 2017-08-16 13:03 | Emergency (ER) | payer OTHER ==
[~2017-08-16] VITALS: Ht 170.1 cm; Wt 86.2 kg
[2017-08-16 13:56] LABS: HEMATOCRIT 41.6 % (42.0-52.0); HEMOGLOBIN 13.9 g/dl (14.0-18.0); MEAN CELL VOLUME 80.9 fl (80.0-94.0); MEAN CORPUSCULAR HGB CONC 33.4 g/dl (33.0-37.0); PLATELET COUNT AUTOMATED 255 10*3/uL (130-400); RED BLOOD COUNT 5.14 10*6/uL (4.50-5.90); RED CELL DISTRI WIDTH 14.4 % (0-14.5); WHITE BLOOD COUNT 14.1 10*3/uL (4.8-10.8)
[2017-08-16 14:08] LABS: ALKALINE PHOSPHATASE 367 U/L (45-117); BUN 13 mg/dl (7-24); CHLORIDE 98 mmol/L (98-107); CREATININE 0.78 mg/dL (0.70-1.30); POTASSIUM 4.2 mmol/L (3.5-5.1); SGOT/AST 131 IU/L (3-35); SGPT/ALT 65 U/L (12-78); SODIUM 133 mmol/L (136-145); TOTAL PROTEIN 7.3 gm/dL (6.4-8.2)
[2017-08-16 14:11] LABS: TROPONIN I < 0.015 ng/ml (<0.045)
[2017-08-16 14:16] LABS: PLATELET SUFFICIENCY NORMAL (NORMAL); TOTAL CELLS COUNTED 100 #CELLS
[2017-08-16 14:17] LABS: POLYCHROMASIA SLIGHT
[2017-08-16 15:48] VITALS: BP 118/60
== END 2017-08-16 15:29 | disposition home or self-care (01) ==
LOC: ED 13:03
PROVIDERS: Emergency Medicine
DX: R07.9 Chest pain, unspecified (principal); T45.1X5A Adverse effect of antineoplastic and immunosuppressive drugs, initial encounter; F17.200 Nicotine dependence, unspecified, uncomplicated; J44.9 Chronic obstructive pulmonary disease, unspecified; I10 Essential (primary) hypertension; I48.91 Unspecified atrial fibrillation; Z90.49 Acquired absence of other specified parts of digestive tract; Z98.890 Other specified postprocedural states; Z79.899 Other long term (current) drug therapy; Z99.81 Dependence on supplemental oxygen; Z85.6 Personal history of leukemia; Y92.9 Unspecified place or not applicable

== ENCOUNTER → 2017-08-17 | Outpatient (CLI) | payer OTHER | END | disposition home or self-care (01) | LOC: RESCLI 02:14 | DX: L27.0 Generalized skin eruption due to drugs and medicaments taken internally (principal); C78.7 Secondary malignant neoplasm of liver and intrahepatic bile duct; C79.51 Secondary malignant neoplasm of bone; C34.90 Malignant neoplasm of unspecified part of unspecified bronchus or lung; G47.00 Insomnia, unspecified; E66.3 Overweight; J44.9 Chronic obstructive pulmonary disease, unspecified; I48.91 Unspecified atrial fibrillation; I10 Essential (primary) hypertension; F41.9 Anxiety disorder, unspecified; E55.9 Vitamin D deficiency, unspecified; D72.829 Elevated white blood cell count, unspecified; D64.9 Anemia, unspecified; E87.1 Hypo-osmolality and hyponatremia; R73.9 Hyperglycemia, unspecified; R74.0 Nonspecific elevation of levels of transaminase and lactic acid dehydrogenase [LDH]; E44.1 Mild protein-calorie malnutrition; F31.9 Bipolar disorder, unspecified; Z87.891 Personal history of nicotine dependence; Z88.5 Allergy status to narcotic agent ==

== ENCOUNTER 2017-08-19 10:38 | Emergency (ER) | payer OTHER ==
[~2017-08-19] VITALS: Ht 167.6 cm; Wt 63.5 kg
[2017-08-19 10:55] VITALS: BP 129/87
[2017-08-19 11:10] LABS: BASO % 0.1 % (0.0-1.0); EOS % 0.1 % (1.0-4.0); HEMATOCRIT 41.7 % (42.0-52.0); HEMOGLOBIN 14.2 g/dl (14.0-18.0); LYMPH # 2.3 10*3/uL (1.3-4.4); LYMPH % 20.2 % (27.0-41.0); MEAN CELL VOLUME 80.2 fl (80.0-94.0); MEAN CORPUSCULAR HGB 27.3 pg (27.0-31.0); MEAN CORPUSCULAR HGB CONC 34.1 g/dl (33.0-37.0); MEAN PLATELET VOLUME 10.6 fl (9.6-12.3); MONO % 9.2 % (3.0-9.0); NEUT # 7.9 10*3/uL (2.3-7.9); PLATELET COUNT AUTOMATED 287 10*3/uL (130-400); RED CELL DISTRI WIDTH 14.7 % (0-14.5); WHITE BLOOD COUNT 11.3 10*3/uL (4.8-10.8)
[2017-08-19 11:19] LABS: INTERNATIONAL NORM RATIO 1.2 (2.0-3.5)
[2017-08-19 11:25] LABS: ALBUMIN 3.1 gm/dl (3.1-4.5); ALKALINE PHOSPHATASE 363 U/L (45-117); BUN 18 mg/dl (7-24); CHLORIDE 101 mmol/L (98-107); CREATININE 0.89 mg/dL (0.70-1.30); POTASSIUM 3.5 mmol/L (3.5-5.1); SGOT/AST 116 IU/L (3-35); SGPT/ALT 94 U/L (12-78); SODIUM 137 mmol/L (136-145); TOTAL PROTEIN 7.5 gm/dL (6.4-8.2)
[2017-08-19 11:27] LABS: TROPONIN I < 0.015 ng/ml (<0.045)
== END 2017-08-20 01:06 | disposition home or self-care (01) ==
LOC: ED 10:38
PROVIDERS: Emergency Medicine
DX: J02.9 Acute pharyngitis, unspecified (principal); J04.0 Acute laryngitis; J44.9 Chronic obstructive pulmonary disease, unspecified; I48.91 Unspecified atrial fibrillation; Z79.899 Other long term (current) drug therapy

== ENCOUNTER → 2017-08-24 | Outpatient (CLI) | payer OTHER | END | disposition home or self-care (01) | LOC: RESCLI 01:54 | DX: L27.0 Generalized skin eruption due to drugs and medicaments taken internally (principal); C34.90 Malignant neoplasm of unspecified part of unspecified bronchus or lung; C78.7 Secondary malignant neoplasm of liver and intrahepatic bile duct; G47.00 Insomnia, unspecified; E66.3 Overweight; J44.9 Chronic obstructive pulmonary disease, unspecified; I48.91 Unspecified atrial fibrillation; I10 Essential (primary) hypertension; F41.9 Anxiety disorder, unspecified; E55.9 Vitamin D deficiency, unspecified; D72.829 Elevated white blood cell count, unspecified; R73.9 Hyperglycemia, unspecified; R74.0 Nonspecific elevation of levels of transaminase and lactic acid dehydrogenase [LDH]; F31.9 Bipolar disorder, unspecified; R00.0 Tachycardia, unspecified; J04.0 Acute laryngitis; Z88.5 Allergy status to narcotic agent ==

== ENCOUNTER 2017-09-03 13:44 | Inpatient (IN) | payer OTHER ==
[2017-09-03] VITALS (15 sets, daily range): BP systolic 93–119; BP diastolic 51–79
[~2017-09-03] VITALS: Ht 167.6 cm; Wt 58.1 kg
--- NOTE | ~2017-09-03 | CON ---
[place], [place] REPORT OF CONSULTATION NAME: LISSETH WELLS SR UNIT #: [id number] ROOM: 519 DOCTOR: MARYCRUZ CHOI MD BIRTHDATE: [birth year] DOS: 09/04/2017 REASON FOR CONSULTATION: Assessment of symptoms of shortness of breath and others. REQUESTING PHYSICIAN: Hospitalist Services. HISTORY OF PRESENT ILLNESS: This is a 51-year-old white male patient who has been known to me from the past. The patient has been recently diagnosed with metastatic adenocarcinoma to the liver. The patient was also noted with COPD and bronchial asthma. He has been diagnosed with chronic hypoxic respiratory failure. The patient assessment office initially on 08/25/2017. He has been noted with symptoms of increased shortness of breath, which has been occurring for the patient few days. The patient has been noted to gradually progression. The symptoms started on 08/31/2017. The patient denies any symptoms of chest pain. He has been noted past history of atrial fibrillation. Electrical cardioversion done previously. As the patient presented to the Emergency Room, he has been noted with atrial fibrillation, rapid ventricular response. He has been noted with mild cough without any sputum expectoration as well as wheezing. Denies symptoms of chest pain or any hemoptysis or chest pain. REVIEW OF SYSTEMS: CONSTITUTIONAL: He does have symptoms of fatigue and tiredness and symptoms, fever or chills. EYES: Denies any burning, redness, or tenderness. EARS, NOSE, THROAT SYMPTOMS: Denies sore throat, hoarseness, otalgia, postnasal or epistaxis. CARDIOVASCULAR: Denies anginal pain, edema, pain, lower extremity. GASTROINTESTINAL: Dysphagia, nausea, vomiting, diarrhea, abdominal pain, hematemesis, melena, or hematochezia. SKIN: Denied lesions or rashes. MUSCULOSKELETAL: Denies any acute deformities. The patient noted pain in the body ____. The patient related to metastatic malignancy arising from the lungs to the bones. CENTRAL NERVOUS SYSTEM: No dizziness, headache, diplopia, syncopal episodes. Remaining systems were reviewed. The patient, they were noted all negative. PAST MEDICAL HISTORY: 1. Atrial fibrillation. 2. Essential hypertension. 3. Left upper lung mass. The patient metastatic adenocarcinoma to the liver, diagnosed with a liver biopsy on ____. 4. Bronchial asthma, uncomplicated moderate severity. 5. Chronic obstructive pulmonary disease. 6. Chronic hypoxic respiratory failure. SOCIAL HISTORY: The patient is . He has four children. Denies any history of alcohol or any illicit drugs. Tobacco use noted from age of [age] years old and stated smoked up to 10 cigarettes per day at one time, which was [place], [place] REPORT OF CONSULTATION NAME: LISSETH WELLS SR UNIT #: [id number] ROOM: [facility] DOCTOR: MARYCRUZ CHOI MD BIRTHDATE: [birth year] discontinued 06/2017. FAMILY HISTORY: The patient's father at 70 years old from unknown medical illnesses. Mother at 58 years old from complication related to cancer of the colon. PAST SURGICAL HISTORY: Noted with: 1. Cholecystectomy. 2. CT-guided needle aspirate Biopsy of liver metastasis on 07/11/2017, in this hospital. MEDICATIONS: 1. The patient home was noted as use of albuterol sulfate via nebulizer q.i.d. p.r.n. for shortness of breath. 2. Metoprolol tartrate 25 mg p.o. t.i.d. 3. Cardizem-CD 120 mg p.o. daily. 4. Xarelto 20 mg daily. 5. Dulera 200/5 two inhalations b.i.d. 6. Ventolin HFA inhaler p.r.n. use. Current medication administered was noted as use of: 1. Vitamin D. 2. Xarelto. 3. Protonix. 4. Cardizem-CD. 5. Metoprolol tartrate. 6. Amiodarone 400 mg p.o. t.i.d. with meals started today. 7. Intravenous Cardizem drip, which was discontinued. 8. ____ sulfate with ipratropium bromide every 4 hours. 9. Flonase 1 spray nostril daily. 10. OxyContin p.r.n. use for pain and other p.r.n. medications administration. DRUG ALLERGY: ALLERGY TO OXYCODONE AND PERCOCET. PHYSICAL EXAMINATION: GENERAL: A 51-year-old male who has been currently sitting comfortably on his bed without any distress. VITAL SIGNS: Height of 5 feet 6 inches, weight of 128 pounds, BMI 20.6. Normal temperature since admission recorded. The respiratory rate range between 26 to 12, heart rate range is the highest of 152, currently noted. The patient's heart rate 110 beats per minute with atrial fibrillation. HEAD, EARS, EYES, NOSE AND THROAT: Head was atraumatic. Eyes nonicterus. NECK: Supple. JVD was not elevated. No lymphadenopathy. CARDIOVASCULAR SYSTEM: S1, S2 audible. LUNGS: The patient was noted without any crackles, rhonchi, or wheezing. ABDOMEN: Soft, nontender. Bowel sounds present. EXTREMITIES: The patient was noted without any acute edema, clubbing or cyanosis. Visible skin noted without any lesions or rashes. MUSCULOSKELETAL: Without any acute deformities. [place], [place] REPORT OF CONSULTATION NAME: LISSETH WELLS SR UNIT #: [id number] ROOM: [facility] DOCTOR: SANTY BUTLER MDMARYCRUZ BIRTHDATE: [birth year] LABORATORY DATA: CBC yesterday on admission, WBC count 4.1, hemoglobin 12.1, hematocrit 36, platelet count was normal. Lactic acid yesterday was noted normal. CBC yesterday normal WBC, which were repeated again. CMP yesterday, normal BUN, creatinine, glucose 120, sodium 135, potassium 3.3. Abnormal liver function tests were noted. CMP of this morning, normal BUN and creatinine. Allergy remains abnormal partial improvement from yesterday. INR of 1.2 noted this morning. CBC this morning, WBC count 3.4, hemoglobin 9.4, hematocrit 27.9, platelet count 142,000. The chest x-ray that was done on the of this month, was personally reviewed shows changes of COPD, hyperinflation, left upper lung mass arising from the left hilar area, small right pleural fluid was noted as well. The pleural fluid appeared to be a new finding as compared with the previous testing. IMPRESSION: 1. The patient will be already noted with metastatic adenocarcinoma. The patient to the liver and mets to the bone, currently treated with chemotherapy. 2. Shortness of breath, which were noted most likely result of the atrial fibrillation with rapid ventricular response, resulting in possibly congestive heart failure and associated right pleural fluid, which appeared to be small at this time. 3. Pancytopenia related to chemotherapy. 4. Chronic obstructive pulmonary disease and bronchial asthma without any evidence of acute exacerbation. 5. Past history of very extreme heavy nicotine dependence, tobacco use has been discontinued recently. PLAN OF MANAGEMENT: Maximize the therapy, atrial fibrillation as well as congestive heart failure management. The patient was started on high dose amiodarone. The patient close monitor any pulmonary toxicity if occurred from that will be monitored. Pleural fluid will be monitored at this time. If necessary, thoracentesis to be done in case of the fluid enlarges. Continue previous home medication for the COPD. Other additional treatment changes needs to be done based on the progression of his illness. Usual care. All other plan of treatment as well. Thanks for allowing me to participate in the care of this patient. MARYCRUZ MADERA MD CM:CONSTR:REPORT OF CONSULTATION 1251 09/04/17 1929 interface
--- NOTE | ~2017-09-03 | PR ---
[place], [place] PROGRESS NOTE NAME: LISSETH WELLS SR UNIT #: [id number] ROOM: 519 DOCTOR: SANTY BUTLER MD,MARYCRUZ BIRTHDATE: [birth year] DOS: 09/05/2017 SUBJECTIVE: The patient was noted comfortable at this time, transferred to telemetry floor. The patient is comfortably resting at this time. Denies symptoms of chest pain or hemoptysis or any abdominal pain. Denies any edema or pain of the lower extremities. The patient currently has a cardiac workup in progress because of the current atrial fibrillation with rapid ventricular response noted on this admission. OBJECTIVE: VITAL SIGNS: Normal temperature, respiratory rate 20, heart rate 88, blood pressure 160/66. The pulse ox saturation on 2 liters 97% saturation recorded. HEENT: Shows no acute change. NECK: Supple. CARDIOVASCULAR: S1, S2 audible. LUNGS: Without any wheezing or crackles at the present time. ABDOMEN: Soft, nontender. Bowel sounds present. EXTREMITIES: Without any acute edema. IMPRESSION: 1. Resolving shortness of breath with the resolution of the atrial fibrillation and rapid ventricular response noted. 2. History of chronic obstructive pulmonary disease and bronchial asthma and chronic hypoxic respiratory failure as well as metastatic lung cancer. PLAN: As outlined previously with oxygen use and other supportive plan of care. MARYCRUZ MADERA MD CM:PNTRANS [id number] MARYCRUZ BUTLER MD 09/06/17 0027 interface
--- NOTE | ~2017-09-03 | PR ---
[place], [place] PROGRESS NOTE NAME: LISSETH WELLS SR UNIT #: [id number] ROOM: 519 DOCTOR: JF DE SANTIAGO MD BIRTHDATE: [birth year] DOS: 09/04/2017 CARDIOLOGY PROGRESS NOTE SUBJECTIVE: The patient was seen today in followup at his bedside in the Intensive Care Unit. He states that he does feel better this morning and in general his heart rate has slowed somewhat, although it is still occasionally rapid. He was weaned off his diltiazem drip last evening, but it had to be restarted this morning because of heart rates in the 140 range. He denies chest pain and does not have any palpitations at present. His heart rate now is between 90 and 100. PHYSICAL EXAMINATION: VITAL SIGNS: His pulse is currently about 100 and irregularly irregular, blood pressure is 100/65. He is afebrile. He weighs 58.1 kg and has a body mass index of 20.7. NECK: Supple. He has no jugular distention. Carotids are full. I heard no bruits. He had no neck or supraclavicular masses. LUNGS: Respirations are unlabored. His chest is clear with diminished breath sounds at the bases, but no rales. HEART: Has an irregularly irregular rhythm. There are no murmurs or gallops. The PMI is not displaced. ABDOMEN: Soft and normally active. EXTREMITIES: Showed no edema. IMPRESSION: 1. Paroxysmal atrial fibrillation, recurrent. 2. Dyspnea due to lung disease exacerbated by atrial fibrillation. 3. Essential hypertension. 4. History of alcohol and cigarette abuse. 5. Recent documentation of adenocarcinoma of the lung with metastasis to liver and bone. PLAN: The patient is currently back on a diltiazem drip. I will give him 1 more dose of IV digoxin and stop the drug after that. Hopefully, between that and his amiodarone load, he will have better control of his heart rate and we can stop the diltiazem drip. If after a few days of oral amiodarone load, he does not convert to sinus rhythm, we probably should consider a cardioversion. I thank the hospitalist physicians for asking our advice regarding his management. [place], [place] PROGRESS NOTE NAME: LISSETH WELLS SR UNIT #: [id number] ROOM: 519 DOCTOR: JF DE SANTIAGO MD BIRTHDATE: [birth year] JF DE SANTIAGO MD CM:PNTRANS [id number] JF DE SANTIAGO MD 09/05/17 1553 interface
--- NOTE | ~2017-09-03 | CON ---
[place], [place] REPORT OF CONSULTATION NAME: LISSETH WELLS SR [id number] UNIT #: [id number] ROOM: [facility] DOCTOR: JF DE SANTIAGO MD BIRTHDATE: [birth year] DOS: 09/03/2017 REASON FOR CONSULTATION: Atrial fibrillation with rapid ventricular response. HISTORY OF PRESENT ILLNESS: The patient is a 51-year-old man who was seen today in the Intensive Care Unit on 09/03/2017. He was originally seen by [facility] on 04/23/2017, when he presented with worsening dyspnea and newly documented atrial fibrillation with rapid ventricular response. He noted at that time that he had a long history of cigarette and alcohol abuse, but that he was smoking and drinking much more heavily since the of his a year previously. He was placed on Xarelto. Efforts were made to control his rate medically and then he was brought back into the hospital on 05/30/2017 for a MECHELLE guided cardioversion. The MECHELLE showed no evidence for cardiac source of embolism and he tolerated the cardioversion well. From a cardiac standpoint, he did well after that; however, in 07/2017, he developed back pain. His evaluation included a CAT scan of the chest, which showed adenocarcinoma of the lung with metastases to the liver and bone. He was seen by Dr. Charles and has been on chemotherapy. On 08/31/2017, he suddenly became more short of breath again. He presented to the Emergency Room today and was found to be in atrial fibrillation with rapid ventricular response. He was placed on diltiazem for rate control and admitted to the hospital and we were asked to see him. The patient's heart rate is somewhat slower now, but still erratic. He denies any chest pain or palpitations. He is still more breathless than usual. PAST MEDICAL HISTORY: Includes: 1. Essential hypertension. 2. Heavy cigarette abuse in the past. 3. Obstructive lung disease. 4. Heavy alcohol abuse. 5. History of cholecystectomy. 6. Newly documented atrial fibrillation with rapid ventricular response, 04/23/2017. 7. MECHELLE-guided cardioversion, 05/30/2017, with successful conversion to sinus. 8. Adenocarcinoma of the lung with metastases to liver and bone documented 07/27/2017. 9. Recurrent atrial fibrillation with rapid ventricular response, documented 09/03/2017. FAMILY HISTORY: The patient's mother of colon cancer at age 54. His father in his 50s from lung cancer. REVIEW OF SYSTEMS: The patient denies diplopia or loss of vision. He has not had any focal weakness. He does have back pain, but denies lightheadedness or syncope. He has had increased dyspnea, but denies orthopnea or PND. He has a persistent nonproductive cough and denies any hemoptysis or hematemesis. He denies focal weakness. He has not had nausea or vomiting. He denies fevers, chills or sweats. He has been fatigued. He denies any change in bowel or [place], [place] REPORT OF CONSULTATION NAME: LISSETH WELLS SR UNIT #: [id number] ROOM: [facility] DOCTOR: JF DE SANTIAGO MD BIRTHDATE: [birth year] bladder habits. He denies blood in his stools or urine. He denies any peripheral edema. He has not had any hot or swollen joints or any heat or cold intolerance. He does have a rash, which she believes might be due to oral morphine. The remainder of the review of systems is negative except as noted above. MEDICATIONS: Prior to admission, the patient is on chemotherapy provided by Dr. Charles. He also uses Dulera 2 puffs b.i.d., DuoNeb 3 mL by inhalation p.r.n. Asmanex 1 puff b.i.d., vitamin D 1000 units daily, diltiazem 120 mg b.i.d., lorazepam 0.5 mg q.6h., metoprolol tartrate 25 mg b.i.d., morphine 10 mg per 5 mL, 5 mg every 8 hours as needed, MS Contin 15 mg q.12h., and Xarelto 20 mg daily. ALLERGIES: He lists allergies to OXYCODONE. SOCIAL HISTORY: The patient is a . He did drink and smoke heavily until recently. PHYSICAL EXAMINATION: GENERAL: Reveals a slender, cachectic appearing white male who is awake, alert and oriented. He appears fairly comfortable. VITAL SIGNS: Pulse is 130 and irregularly irregular, blood pressure is 119/73. He is afebrile. He weighs 58.1 kg and has a body mass index of 20.7. HEENT: Normocephalic and atraumatic. Extraocular muscles are intact. Sclerae are clear. Pupils equal, round and react to light. The oral mucosa is moist. Tongue is midline. NECK: Supple. He has no jugular distention. Carotids are full. I heard no bruits. LUNGS: Respirations are unlabored. He has decreased breath sounds bilaterally but no wheezes or rales. He has no presacral edema or chest wall tenderness. CARDIOVASCULAR: His heart has an irregularly irregular rhythm. There are no murmurs or gallops. The PMI is not displaced. There is no precordial heave, lift or thrill. ABDOMEN: Soft and normoactive without masses, organomegaly or bruits. EXTREMITIES: Showed no edema. Peripheral pulses are diminished in the feet. LABORATORY DATA: Hemoglobin is 12.5, white count 6200, platelet count 69,000. Sodium 135, potassium 3.3, chloride 99, CO2 28, BUN 11, and creatinine 0.74. Initial troponin is normal. IMPRESSION: 1. Recurrent paroxysmal atrial fibrillation. 2. Dyspnea due to lung disease exacerbated by atrial fibrillation. 3. Essential hypertension. 4. History of alcohol and cigarette abuse. 5. Recent documentation of adenocarcinoma of the lung with mets to liver and bone. PLAN: The patient has had recurrent atrial fibrillation 3 months after his cardioversion. I think that long-term, he will require antiarrhythmic therapy. [place], [place] REPORT OF CONSULTATION NAME: PRISCILLA LISSETH FANG UNIT #: [id number] ROOM: [facility] DOCTOR: JF DE SANTIAGO MD BIRTHDATE: [birth year] Amiodarone would be the most effective drug available. We will therefore start him on amiodarone by oral load. If he does not convert spontaneously to sinus rhythm within the next 3 days, we will plan on a cardioversion early next week. I thank the hospitalist physicians for asking our advice regarding his care. JF DE SANTIAGO MD CM:CONSTR:REPORT OF CONSULTATION 1828 09/03/17 2317 interface
--- NOTE | ~2017-09-03 | CON ---
[place], [place] REPORT OF CONSULTATION NAME: LISSETH WELLS SR UNIT #: [id number] ROOM: 519 DOCTOR: GRISELDA QUIÑONEZ MD BIRTHDATE: [birth year] DOS: 09/05/2017 HISTORY OF PRESENT ILLNESS: The patient is a pleasant 51-year-old [place] gentleman with a history of metastatic lung cancer stage IV with mets to the liver, bones, undergoing chemotherapy, came to the Emergency Room. He was noted to have atrial fibrillation with rapid ventricular response and was admitted, started on Cardizem drip and consulted for further evaluation and management. PAST MEDICAL HISTORY: Significant for diagnosed stage IV non-small cell lung cancer, atrial fibrillation, bipolar disorder, COPD, essential hypertension, vitamin D deficiency, anxiety disorder. PAST SURGICAL HISTORY: MECHELLE-guided cardioversion, history of cholecystectomy, status post myringotomy and tube placement to both ears. SOCIAL HISTORY: No alcohol use. Former smoker, smoking 10 packs per day in 2016 and then cut down to 4 packs per day in 2017. FAMILY HISTORY: Mother with colon cancer, at age 54. Father with lung cancer, at 60. ALLERGIES: PERCOCET AND OXYCODONE. MEDICATIONS: Vitamin D3, diltiazem, albuterol sulfate, lorazepam, Lopressor, Asmanex, MS Contin, Xarelto. REVIEW OF SYSTEMS: CONSTITUTIONAL: No chills. No fatigue. No fever. No loss of appetite. No night sweats. No weakness. No weight loss. HEENT: No trouble swallowing. No loss of smell. No loss of hearing. No double vision. No pain. No discharge. ENT AND RESPIRATORY: No wheeze. No sore throat. No change in voice. No hearing loss. No nose bleed. No cough. No trouble breathing through nose. No shortness of breath. No coughing up blood. No epistaxis. CARDIOVASCULAR: No chest pain. No dizziness. No irregular heartbeat. No leg edema. No pain in legs while walking. No palpitations. No shortness of breath. DERMATOLOGIC: No acne. No hives. No laceration. No mole. No rash. ENDOCRINE: No cold intolerance. No diabetes. No fatigue. No hot flashes. No polydipsia. No polyuria. No urinating frequently. No weight loss. HEMATOLOGIC AND LYMPH: No fatigue. No easy bruising. GASTROENTEROLOGIC: No change in bowel habits. No indigestion. No frequent bloating. No vomiting blood. No abdominal cramping. No nausea. No heartburn. No vomiting. No abdominal pain. No dysphagia. No diarrhea. No constipation. No blood in stool. MALE REPRODUCTIVE: No testicular pain. No difficulty with erection. No diminished sexual drive. No penile discharge. MUSCULOSKELETAL: No back pain. No muscle pain or weakness. No neck pain. No tingling/numbness. No swelling/bruising. No osteoporosis treatment. OPTHALMOLOGIC: No double vision. No diminished vision. No loss of vision. [place], [place] REPORT OF CONSULTATION NAME: PRISCILLA FANGLISSETH Wayne UNIT #: [id number] ROOM: [facility] DOCTOR: GRISELDA QUIÑONEZ MD BIRTHDATE: [birth year] UROLOGIC: No dysuria. No frequent nighttime urination. No pain with urination. No difficulty urinating. No blood in urine. No frequent urination. No urinary incontinence. NEUROLOGIC: No loss of sensation in specific body area. No vertigo. No burning pain in feet. No trouble with balance. No trouble with coordination. No loss of consciousness. No loss of feeling/power. No confusion. No headache. No tingling/numbness. PSYCHOLOGIC: No tinnitus. No headaches. No shortness of breath. No weight decrease. No nausea. No vomiting. No abdominal discomfort. No constipation. No diarrhea. No depression. No anxiety. PHYSICAL EXAMINATION: GENERAL: Pleasant gentleman in no apparent distress. VITAL SIGNS: Stable. HEENT: Oral mucosa appears intact. The external ears are normal in appearance. Nares are patent without lesions, exudates, erythema, or inflammation. Tongue is symmetrical. Uvula is midline. NECK AND THYROID: Neck supple without palpable masses. Trachea is midline. No thyromegaly. No carotid bruit or JVD. BREASTS: Normal. Nipples unremarkable. No drainage. No lumps felt on either side. HEART: Normal S1, S2, without significant murmur, rub, or gallop. LUNGS: Clear to auscultation and percussion with good air entry bilaterally. The patient is breathing easily without the use of accessory muscles. Diaphragmatic excursions are intact. ABDOMEN: No costovertebral angle tenderness. Soft. No organomegaly or masses. Nontender. No hernias present. Liver and spleen are not palpable. LYMPHATIC: No adenopathy noted in the cervical, supraclavicular, axillary, or inguinal regions. NEUROLOGIC: Nonfocal. Oriented to person, place, and time. MENTAL STATUS: Appropriate for mood and affect. PERIPHERAL PULSES: No varicosities. Femoral and pedal pulses are palpable. EXTREMITIES: Without cyanosis, clubbing, or edema. No gross anomalies. LABORATORY DATA: White count of 2.7, hemoglobin 10.1, hematocrit 30.1, platelet count of 37,000 with ANC of 2000. Chemistries: Glucose of 112, BUN of 10, EGFR more than 60. Sodium 138, potassium 4.2, chloride 105, bicarbonate 27, calcium 8.5, total protein 5.9, SGOT 35, SGPT 86. ASSESSMENT: 1. Stage IV non-small cell lung cancer. 2. Atrial fibrillation with rapid ventricular response. 3. Pleural effusion. 4. Thrombocytopenia. 5. Leukopenia. PLAN: We will wait for his overall condition to improve. His counts are stable. If the hemoglobin, hematocrit or white counts start dropping, then further intervention. I had detailed discussion with the patient about it, he seemed to understand. Ample time was given to the patient to ask me questions. [place], [place] REPORT OF CONSULTATION NAME: LISSETH WELLS SR UNIT #: [id number] ROOM: [facility] DOCTOR: GRISELDA QUIÑONEZ MD BIRTHDATE: [birth year] We will follow. Thanks for consulting and letting me participate in the care of this interesting patient. GRISELDA QUIÑONEZ MD CM:CONSTR:REPORT OF CONSULTATION 1326 09/06/17 0050 interface
[2017-09-03 14:42] LABS: BASO % 0.2 % (0.0-1.0); HEMATOCRIT 36.7 % (42.0-52.0); HEMOGLOBIN 12.5 g/dl (14.0-18.0); LYMPH # 1.9 10*3/uL (1.3-4.4); LYMPH % 30.2 % (27.0-41.0); MEAN CELL VOLUME 79.4 fl (80.0-94.0); MEAN CORPUSCULAR HGB 27.1 pg (27.0-31.0); MEAN CORPUSCULAR HGB CONC 34.1 g/dl (33.0-37.0); MEAN PLATELET VOLUME 9.6 fl (9.6-12.3); MONO # 0.1 10*3/uL (0.1-1.0); MONO % 0.8 % (3.0-9.0); NEUT # 4.3 10*3/uL (2.3-7.9); NEUT % 68.6 % (47.0-73.0); PLATELET COUNT AUTOMATED 69 10*3/uL (130-400); RED BLOOD COUNT 4.62 10*6/uL (4.50-5.90); RED CELL DISTRI WIDTH 14.7 % (0-14.5); WHITE BLOOD COUNT 6.2 10*3/uL (4.8-10.8)
[2017-09-03 15:03] LABS: ACT PARTIAL THROMBO TIME 28.9 SECONDS (20.8-31.5); INTERNATIONAL NORM RATIO 1.2 (2.0-3.5)
[2017-09-03 15:06] LABS: ALBUMIN 2.7 gm/dl (3.1-4.5); ALKALINE PHOSPHATASE 239 U/L (45-117); BUN 11 mg/dl (7-24); CHLORIDE 99 mmol/L (98-107); CREATININE 0.74 mg/dL (0.70-1.30); LIPASE 41 U/L (73-393); POTASSIUM 3.3 mmol/L (3.5-5.1); SGOT/AST 46 IU/L (3-35); SGPT/ALT 126 U/L (12-78); SODIUM 135 mmol/L (136-145)
[2017-09-03 15:17] LABS: TROPONIN I < 0.015 ng/ml (<0.045)
[2017-09-03] MEDS ORDERED: DILTIAZEM HCL120 M3 PO (17:19)
[2017-09-03] MEDS ORDERED: MS CONTIN15 MG PO (17:20)
[2017-09-03] MEDS ORDERED: MORPHINE S10 MG/5 ML PO (17:22)
[2017-09-03] MEDS ORDERED: DULER200 INH (17:27)
[2017-09-04] VITALS (15 sets, daily range): BP systolic 81–117; BP diastolic 42–69
[2017-09-04 05:48] LABS: ALBUMIN 2.1 gm/dl (3.1-4.5); ALKALINE PHOSPHATASE 188 U/L (45-117); BUN 10 mg/dl (7-24); CHLORIDE 104 mmol/L (98-107); CHOLESTEROL 108 mg/dL (<200); CREATININE 0.57 mg/dL (0.70-1.30); HDL CHOLESTEROL 43 mg/dl (40-60); LDL CHOLESTEROL 51 mg/dL (9-159); PHOSPHOROUS 2.6 mg/dL (2.5-4.9); POTASSIUM 3.7 mmol/L (3.5-5.1); SGOT/AST 35 IU/L (3-35); SGPT/ALT 89 U/L (12-78); SODIUM 138 mmol/L (136-145); TOTAL PROTEIN 5.2 gm/dL (6.4-8.2); TRIGLYCERIDES 70 mg/dl (<150); VLDL CHOLESTEROL 14 mg/dL (6-40)
[2017-09-04 05:53] LABS: THYROID STIM HORMONE (HS) 0.552 uIU/ml (0.358-4.75)
[2017-09-04 06:01] LABS: MEAN CELL VOLUME 81.1 fl (80.0-94.0); MEAN CORPUSCULAR HGB 27.3 pg (27.0-31.0); MEAN CORPUSCULAR HGB CONC 33.7 g/dl (33.0-37.0); MEAN PLATELET VOLUME 10.3 fl (9.6-12.3); RED BLOOD COUNT 3.44 10*6/uL (4.50-5.90); RED CELL DISTRI WIDTH 14.6 % (0-14.5); WHITE BLOOD COUNT 3.4 10*3/uL (4.8-10.8)
[2017-09-04 06:11] LABS: INTERNATIONAL NORM RATIO 1.2 (2.0-3.5)
[2017-09-04 06:24] LABS: HEMATOCRIT 27.9 % (42.0-52.0); HEMOGLOBIN 9.4 g/dl (14.0-18.0); PLATELET COUNT AUTOMATED 42 10*3/uL (130-400)
[2017-09-04 06:50] LABS: BASOPHILS 1 % (0-1); TOTAL CELLS COUNTED 100 #CELLS
[2017-09-04 06:51] LABS: PLATELET SUFFICIENCY LOW (NORMAL)
[2017-09-04 09:05] LABS: VITAMIN D, 25-HYDROXY 14.4 ng/mL (30-100)
[2017-09-05] VITALS (8 sets, daily range): BP systolic 87–130; BP diastolic 48–70
[2017-09-05 07:53] LABS: HEMATOCRIT 30.1 % (42.0-52.0); HEMOGLOBIN 10.1 g/dl (14.0-18.0); MEAN CELL VOLUME 81.4 fl (80.0-94.0); MEAN CORPUSCULAR HGB 27.3 pg (27.0-31.0); MEAN CORPUSCULAR HGB CONC 33.6 g/dl (33.0-37.0); MEAN PLATELET VOLUME 10.9 fl (9.6-12.3); PLATELET COUNT AUTOMATED 37 10*3/uL (130-400); RED CELL DISTRI WIDTH 14.4 % (0-14.5); WHITE BLOOD COUNT 2.7 10*3/uL (4.8-10.8)
[2017-09-05 08:09] LABS: ALBUMIN 2.4 gm/dl (3.1-4.5); BUN 10 mg/dl (7-24); CHLORIDE 105 mmol/L (98-107); CREATININE 0.57 mg/dL (0.70-1.30); PHOSPHOROUS 2.7 mg/dL (2.5-4.9); POTASSIUM 4.2 mmol/L (3.5-5.1); SGOT/AST 35 IU/L (3-35); SGPT/ALT 86 U/L (12-78); SODIUM 138 mmol/L (136-145); TOTAL PROTEIN 5.9 gm/dL (6.4-8.2)
[2017-09-05 08:11] LABS: PLATELET SUFFICIENCY LOW (NORMAL); TOTAL CELLS COUNTED 100 #CELLS
[2017-09-05 08:21] LABS: ALKALINE PHOSPHATASE 211 U/L (45-117); DIGOXIN 0.91 ng/ml (0.8-2.0)
[2017-09-05] MEDS ORDERED: AMIODARONE HCL400 MG PO (16:17)
[2017-09-05] MEDS ORDERED: VITAMIN D31000 UNI1 PO (16:17)
[2017-09-05] MEDS ORDERED: METOPROLOL TART50 M1 PO (16:17)
== END 2017-09-05 17:36 | disposition home or self-care (01) | DRG 308 ==
LOC: ED 13:44 → 5E 15:37 → EDHOLD 15:37 → ICCU 15:37 → 5E 09-04 15:35
PROVIDERS: Emergency Medicine; Internal Medicine; Internal Medicine Nephrology
DX: I48.0 Paroxysmal atrial fibrillation (principal); E43 Unspecified severe protein-calorie malnutrition; D61.810 Antineoplastic chemotherapy induced pancytopenia; J96.11 Chronic respiratory failure with hypoxia; C78.7 Secondary malignant neoplasm of liver and intrahepatic bile duct; C79.51 Secondary malignant neoplasm of bone; R65.10 Systemic inflammatory response syndrome (SIRS) of non-infectious origin without acute organ dysfunction; D69.6 Thrombocytopenia, unspecified; C34.92 Malignant neoplasm of unspecified part of left bronchus or lung; E87.1 Hypo-osmolality and hyponatremia; I50.32 Chronic diastolic (congestive) heart failure; I11.0 Hypertensive heart disease with heart failure; F31.9 Bipolar disorder, unspecified; F41.9 Anxiety disorder, unspecified; E55.9 Vitamin D deficiency, unspecified; R73.9 Hyperglycemia, unspecified; I95.9 Hypotension, unspecified; J44.9 Chronic obstructive pulmonary disease, unspecified; J45.909 Unspecified asthma, uncomplicated; E87.6 Hypokalemia; Z88.6 Allergy status to analgesic agent; Z90.49 Acquired absence of other specified parts of digestive tract; Z87.891 Personal history of nicotine dependence; Z80.1 Family history of malignant neoplasm of trachea, bronchus and lung; Z80.0 Family history of malignant neoplasm of digestive organs; Z79.899 Other long term (current) drug therapy; Z68.20 Body mass index [BMI] 20.0-20.9, adult; Z92.21 Personal history of antineoplastic chemotherapy; Z88.5 Allergy status to narcotic agent

== ENCOUNTER 2017-09-07 07:59 | Inpatient (IN) | payer OTHER ==
[~2017-09-07] VITALS: Ht 167.6 cm; Wt 68.0 kg
--- NOTE | ~2017-09-07 | PR ---
[place], [place] PROGRESS NOTE NAME: [facility]H [facility] SR [id number] UNIT #: [id number] ROOM: 526 DOCTOR: GRISELDA QUIÑONEZ MD BIRTHDATE: [birth year] DOS: 09/09/2017 SUBJECTIVE: The patient is doing better. He is awake, alert and responsive. REVIEW OF SYSTEMS HEENT: No trouble swallowing. No double vision. No loss of vision. No pain. ENT AND RESPIRATORY: No wheeze. No change in voice. No cough. No shortness of breath. No coughing up blood. No epistaxis. CARDIOLOGIC: No chest pain. No dizziness. No irregular heartbeat. No leg edema. No palpitations. No shortness of breath. HEMATOLOGIC AND LYMPH: No past transfusion. No fatigue. No loss of appetite. No easy bruising. GASTROENEROLOGIC: No change in bowel habits. No vomiting blood. No abdominal cramping. No nausea. No vomiting. No diarrhea. No constipation. No blood in stool. MALE REPRODUCTIVE: No testicular pain. No penile discharge. MUSCULOSKELETAL: No back pain. No muscle pain or weakness. No tingling/numbness. UROLOGIC: No pain with urination. No difficulty urinating. No frequent urination. NEUROLOGIC: No burning pain in feet. No trouble with coordination. No loss of consciousness. No headache. No tingling/numbness. No memory loss. PHYSICAL EXAMINATION GENERAL: Pleasant gentleman in no apparent distress. VITAL SIGNS: Stable, afebrile. HEENT: Normocephalic, atraumatic NECK AND THYROID: Supple. No JVD, thyromegaly, or lymphadenopathy. HEART: Normal S1, S2. Regular rate and rhythm. LUNGS: Clear to auscultation and percussion. ABDOMEN: Soft. Nontender, nondistended. Bowel sounds present. EXTREMITIES: Normal ROM. No clubbing. No edema. LABORATORY DATA: White count of 6.5, hemoglobin 9.4, hematocrit 28.2, platelet 111,000. ASSESSMENT: 1. Metastatic lung cancer. 2. Anxiety disorder. 3. Anemia of neoplastic disorder. 4. Thrombocytopenia. PLAN: The patient will be scheduled for a PET scan as outpatient, advised if any weakness, tiredness, to call us, otherwise, close followup. [place], [place] PROGRESS NOTE NAME: LISSETH WELLS SR UNIT #: [id number] ROOM: 526 DOCTOR: GRISELDA QUIÑONEZ MD BIRTHDATE: [birth year] GRISELDA QUIÑONEZ MD CM:ASHELY [id number] GRISELDA QUIÑONEZ MD 09/09/17 180 interface
--- NOTE | ~2017-09-07 | CON ---
[place], [place] REPORT OF CONSULTATION NAME[id number] UNIT #: [id number] ROOM: 526 DOCTOR: GRISELDA QUIÑONEZ MD BIRTHDATE: [birth year] DOS: 09/08/2017 HISTORY OF PRESENT ILLNESS: The patient is a pleasant 51-year-old gentleman with a history of metastatic lung cancer, recent discharge on 09/05/2017 who was doing great when he became short of breath while he got out of the shower. He used his oxygen, with improvement in his status, but the shortness of breath got worse, and was subsequently admitted and consulted. He was supposed to see Dr. Portillo for dysphagia, but he came to the Emergency Department and admitted and consulted for further evaluation and management for his lung cancer. PAST MEDICAL HISTORY: Significant for recently diagnosed stage IV metastatic adenocarcinoma of the lung, AFib, bipolar disorder, chronic diastolic congestive heart failure, COPD, essential hypertension, anxiety, hypercoagulable state, pleural effusion, severe protein-calorie malnutrition, and vitamin D deficiency. PAST SURGICAL HISTORY: MECHELLE-guided cardioversion, history of cholecystectomy, history of pulmonary myringotomy with tube placement in both ears. SOCIAL HISTORY: Former smoker about 10 packs per day, which was increased in January 2016 and then cut down to 4 packs per day in June 2017. Denies any drug or alcohol use. FAMILY HISTORY: Mother had colon cancer, at 54. Father, lung cancer this year around 50 years old. ALLERGIES: PERCOCET AND OXYCODONE. MEDICATIONS: Amiodarone, vitamin D3, Dulera, Ativan, MS Contin, Xarelto, and trazodone. REVIEW OF SYSTEMS CONSTITUTIONAL: No chills. No fatigue. No fever. No loss of appetite. No night sweats. No weakness. No weight loss. HEENT: No trouble swallowing. No loss of smell. No loss of hearing. No double vision. No pain. No discharge. ENT AND RESPIRATORY: No wheeze. No sore throat. No change in voice. No hearing loss. No nose bleed. No cough. No trouble breathing through nose. No shortness of breath. No coughing up blood. No epistaxis. CARDIOVASCULAR: No chest pain. No dizziness. No irregular heartbeat. No leg edema. No pain in legs while walking. No palpitations. No shortness of breath. DERMATOLOGIC: No acne. No hives. No laceration. No mole. No rash. ENDOCRINE: No cold intolerance. No diabetes. No fatigue. No hot flashes. No polydipsia. No polyuria. No urinating frequently. No weight loss. HEMATOLOGIC AND LYMPH: No fatigue. No easy bruising. GASTROENTEROLOGIC: No change in bowel habits. No indigestion. No frequent bloating. No vomiting blood. No abdominal cramping. No nausea. No heartburn. No vomiting. No abdominal pain. No dysphagia. No diarrhea. No constipation. No blood in stool. MALE REPRODUCTIVE: No testicular pain. No difficulty with erection. No [place], [place] REPORT OF CONSULTATION NAME: GEOVANNAKJBarry LISSETH FANG UNIT #: [id number] ROOM: [facility] DOCTOR: GRISELDA QUIÑONEZ MD BIRTHDATE: [birth year] diminished sexual drive. No penile discharge. MUSCULOSKELETAL: No back pain. No muscle pain or weakness. No neck pain. No tingling/numbness. No swelling/bruising. No osteoporosis treatment. OPHTHALMOLOGIC: No double vision. No diminished vision. No loss of vision. UROLOGIC: No dysuria. No frequent nighttime urination. No pain with urination. No difficulty urinating. No blood in urine. No frequent urination. No urinary incontinence. NEUROLOGIC: No loss of sensation in specific body area. No vertigo. No burning pain in feet. No trouble with balance. No trouble with coordination. No loss of consciousness. No loss of feeling/power. No confusion. No headache. No tingling/numbness. PSYCHOLOGIC: No tinnitus. No headaches. No shortness of breath. No weight decrease. No nausea. No vomiting. No abdominal discomfort. No constipation. No diarrhea. No depression. No anxiety. PHYSICAL EXAMINATION: VITAL SIGNS: Stable. Afebrile. GENERAL: A pleasant gentleman, in no apparent distress, nervous. HEENT: Oral mucosa appears intact. The external ears are normal in appearance. Nares are patent without lesions, exudates, erythema, or inflammation. Tongue is symmetrical. Uvula is midline. NECK AND THYROID: Neck supple without palpable masses. Trachea is midline. No thyromegaly. No carotid bruit or JVD. BREASTS: Normal. Nipples unremarkable. No drainage. No lumps felt on either side. HEART: Normal S1, S2, without significant murmur, rub, or gallop. LUNGS: Clear to auscultation and percussion with good air entry bilaterally. The patient is breathing easily without the use of accessory muscles. Diaphragmatic excursions are intact. ABDOMEN: No costovertebral angle tenderness. Soft. No organomegaly or masses. Nontender. No hernias present. Liver and spleen are not palpable. LYMPHATIC: No adenopathy noted in the cervical, supraclavicular, axillary, or inguinal regions. NEUROLOGIC: Nonfocal. Oriented to person, place, and time. MENTAL STATUS: Appropriate for mood and affect. PERIPHERAL PULSES: No varicosities. Femoral and pedal pulses are palpable. EXTREMITIES: Without cyanosis, clubbing, or edema. No gross anomalies. LABORATORY DATA: Sodium 139, potassium 3.4, chloride 103, bicarbonate 29, magnesium 1.8. White count of 5.7, hemoglobin 11.1, hematocrit 32.2, platelet count of 53,000. RADIOLOGY: Chest x-ray showed worsening of the right lower lobe pneumonia with pleural effusion, within an interval of 72 hours with a new infiltrate in the lateral basal segment of the left lower lobe. ASSESSMENT: 1. Healthcare-associated pneumonia. 2. Metastatic stage 4 lung cancer. 3. Anemia of neoplastic disorder. [place], [place] REPORT OF CONSULTATION NAME: LISSETH WELLS SR UNIT #: [id number] ROOM: 526 DOCTOR: GRISELDA QUIÑONEZ MD BIRTHDATE: [birth year] 4. Chronic obstructive pulmonary disease exacerbation. PLAN: The patient will be needing thoracentesis. In addition, we will wait for overall condition to improve and depending on further intervention, I will follow. I had a detailed discussion with the patient about it. He had multiple questions, which were answered. Thanks for consulting and letting me participate in the care of this interesting patient. GRISELDA QUIÑONEZ MD CM:CONSTR:REPORT OF CONSULTATION 1452 09/09/17 0222 interface
--- NOTE | ~2017-09-07 | PR ---
[place], [place] PROGRESS NOTE NAME: LISSETH WELLS SR UNIT #: [id number] ROOM: 526 DOCTOR: GRISELDA QUIÑONEZ MD BIRTHDATE: [birth year] DOS: 09/10/2017 SUBJECTIVE: The patient is doing better. He is awake, alert and responsive. PHYSICAL EXAMINATION: GENERAL: Pleasant gentleman in no apparent distress. VITAL SIGNS: Stable, afebrile. HEENT: Normocephalic, atraumatic NECK AND THYROID: Supple. No JVD, thyromegaly, or lymphadenopathy. HEART: Normal S1, S2. Regular rate and rhythm. LUNGS: Clear to auscultation and percussion. ABDOMEN: Soft. Nontender, nondistended. Bowel sounds present. EXTREMITIES: Normal ROM. No clubbing. No edema. LABORATORY DATA: White count 6.5, hemoglobin 9.4, hematocrit 28.2, platelet count of 101,000. ASSESSMENT: 1. Metastatic lung cancer. 2. Anemia of neoplastic disorder. 3. Mild thrombocytopenia. 4. Possible pneumonia. PLAN: Overall, he is doing much better. He might be going home today. Follow up as outpatient. If his hemoglobin and hematocrit drops, then further intervention discussed. GRISELDA QUIÑONEZ MD CM:PNTRANS [id number] GRISELDA QUIÑONEZ MD 09/10/17 1346 interface
--- NOTE | ~2017-09-07 | CON ---
[place], [place] REPORT OF CONSULTATION [id number] UNIT #: [id number] ROOM: 526 DOCTOR: MARYCRUZ CHOI MD BIRTHDATE: [birth year] DOS: 09/08/2017 PULMONARY CONSULTATION, EVALUATION, AND MANAGEMENT REASON FOR CONSULTATION: Assessment of the patient for possibility of acute pneumonia. HISTORY OF PRESENT ILLNESS: This is a 51-year-old white male who has been admitted in this hospital recently and discharged home. The patient was discharged home on 09/05/2017, treated for acute atrial fibrillation with rapid ventricular response. The patient was discharged home. He has been noted in a usual state of health after discharge from the hospital. He has been admitted to the hospital. The patient came into the Emergency Room, after taking the shower, the patient stated that he felt very weak and short of breath. He took his oxygen supplementation. He has been brought to the hospital where the patient was assessed on 09/07/2017 with recurrent symptoms and being hospitalized. The symptoms of shortness of breath were described for this patient that occurs with exertion and was noted at rest as well. He denies any symptoms of coughing. Denies symptoms of chest pain or any acute hemoptysis. The patient is receiving chemotherapy for known metastatic non-small cell lung cancer by Dr. Charles. He does not have any symptoms of wheezing. Denies any symptoms of acute chest pain. REVIEW OF SYSTEMS CONSTITUTIONAL: Fatigue and tiredness noted. No symptoms of fever or chills. EYES: Denies any burning, redness, or tenderness. EARS, NOSE, AND THROAT SYMPTOMS: Sore throat with chronic hoarseness, most likely related to left vocal cord paralysis related to the malignancy. Denies any postnasal drainage or epistaxis. CARDIOVASCULAR: Denies anginal pain, edema, or pain of the lower extremities. GASTROINTESTINAL: No dysphagia, nausea, vomiting, diarrhea, abdominal pain, hematemesis, melena, or hematochezia. SKIN: Denies lesions or rashes. CENTRAL NERVOUS SYSTEM: No dizziness, headache, diplopia, or syncopal episode. Remaining systems were reviewed with the patient, they were noted all negative. PAST MEDICAL HISTORY: 1. History of atrial fibrillation, recent admission for atrial fibrillation with rapid ventricular response in August 2017. 2. Essential hypertension. 3. Metastatic adenocarcinoma to the liver with biopsy of the liver that was done previously. 4. Uncomplicated moderate persistent bronchial asthma. 5. COPD. 6. Chronic hypoxic respiratory failure. 7. Left vocal cord paralysis related to the malignancy on the left side. SOCIAL HISTORY: The patient is , lives at home, has 4 children. Smoking [place], [place] REPORT OF CONSULTATION NAME: LISSETH WELLS SR UNIT #: [id number] ROOM: 526 DOCTOR: MARYCRUZ CHOI MD BIRTHDATE: [birth year] noted up to 10 pack of cigarettes per day, started from the age of [age] years old. He has not been smoking any cigarettes since June 2017. PAST SURGICAL HISTORY: 1. Cholecystectomy. 2. CT-guided needle aspirate biopsy of liver metastasis on 07/11/2017. FAMILY HISTORY: The patient's father at age of 7070 years old from unknown medical illnesses. Mother at age of 50 years due to complication related to the cancer of the colon. MEDICATIONS: Medications of the patient, which was at this time are noted as use of amiodarone, vitamin D, trazodone, metoprolol, Xarelto 20 mg daily, IV Solu-Medrol 40 mg q.8h., DuoNeb q.4h., meropenem, morphine, vancomycin, and Levaquin. DRUG ALLERGIES: NOTED ALLERGY TO THE PERCOCET. PHYSICAL EXAMINATION: GENERAL: This is a 51-year-old white male, currently noted to be awake and alert without any acute distress. Height of 5 feet 6 inches, weight of 150 pounds, BMI of 24.2. VITAL SIGNS: Temperature noted as normal, respiratory rate 19-18, heart rate 88-82, blood pressure 108/71-114/68, pulse oxygen saturation of the patient recorded on 2 liters nasal cannula 92-98% saturation. HEENT: Head was atraumatic. Eyes nonicterus. Oral mucosa was moist. NECK: Supple. CARDIOVASCULAR: S1, S2 is audible. LUNGS: Noted decreased breaths in the right lower lung with occasional crackles. Remaining lung was noted clear of any wheezing. ABDOMEN: Noted soft and nontender. EXTREMITIES: Without any acute edema. LABORATORY DATA: The CBC for the patient that was done on 09/07/2017, WBC count normal, hemoglobin 11.1, hematocrit 32.2, platelet count 53,000. Lactic acid 1.0, yesterday noted. PT/PTT yesterday noted, INR 1.6, PTT 53. Troponin 2 additional sets yesterday were noted all normal. The CMP yesterday of the patient, potassium 3.4, AST, ALT mildly abnormal. The CMP of the patient this morning, glucose 198, BUN and creatinine was normal. Culture of the sputum of the patient was noted with few white blood cells, few gram-positive bacilli, few gram-positive cocci in pairs with pending results of the cultures. Trough level of vancomycin noted 12.4. IMAGING STUDIES: The chest x-ray of the patient that was done 2-views, was noted with evidence of infiltration or atelectasis noted with right pleural fluid appeared to be somewhat increased for the patient as compared to chest x-ray from 09/03/2017. IMPRESSION: 1. The patient will be admitted to the hospital because of shortness of breath, [place], [place] REPORT OF CONSULTATION NAME: LISSETH WELLS SR UNIT #: [id number] ROOM: 526 DOCTOR: MARYCRUZ CHOI MD BIRTHDATE: [birth year] mostly related to the current right pleural fluid with possibility of atelectasis. The pleural fluid most likely was resulting from the previous congestive heart failure with atrial fibrillation at last admission; however, other etiology to be considered including from malignancy for the pleural fluid related to if there is any pneumonia. Possibility of pneumonia has been considered, but it seemed to be clinically less likely at this time. 2. Pancytopenia related to chemotherapy. 3. Chronic obstructive pulmonary disease with early acute exacerbation, would also result in increase of shortness of breath. 4. Past history of very heavy nicotine dependence. 5. Known history of metastatic cancer as adenocarcinoma with metastasis to the liver with abnormal LFTs were noted. 6. Left vocal cord paralysis related to the current malignancy, which has been noted in left hemithorax. PLAN OF THERAPY: At this time, the patient will be continued with current antibiotic therapy. The Solu-Medrol dose will be decreased for this patient gradually as well. Bronchodilator will be continued. Assessment with the ultrasound of the right chest of the patient tomorrow morning for potential thoracentesis based on the amount of pleural fluid noted with ultrasound assessment. Oxygen supplementation to be continued to maintain an oxygen saturation of 92% or greater. Other supportive therapy, plan of management, and care plan. Medical hyperglycemia related to corticosteroids as well. Holding of the Xarelto for this patient for the next 24 hours for the thoracentesis reason. Thank you for allowing me to participate in the care of this patient. MARYCRUZ MADERA MD CM:CONSTR:REPORT OF CONSULTATION 1232 09/09/17 0041 interface
--- NOTE | ~2017-09-07 | PR ---
[place], [place] PROGRESS NOTE NAME: LISSETH WELLS SR [facility] #: [id number] UNIT #: [id number] ROOM: 526 DOCTOR: MARYCRUZ CHOI MD BIRTHDATE: [birth year] DOS: 09/09/2017 SUBJECTIVE: The patient was not noted with any ongoing acute complaints. He was planned for assessment with the ultrasound, possible thoracentesis of right side. Shortness of breath has been improving. There were symptoms of chest pain. Denies symptoms of headache. There were no symptoms of nausea or vomiting. The remaining systems were reviewed. They were noted all negative. OBJECTIVE: VITAL SIGNS: For the patient, which has been recorded showed normal temperature, respiratory rate 20, heart rate 80, blood pressure 100/58. Pulse oxygen saturation 95% noted. HEENT: Showed no acute changes. NECK: Supple. CARDIOVASCULAR: S1, S2 audible. LUNGS: Without any wheezing or crackles at present time. ABDOMEN: Soft, nontender. EXTREMITIES: Without any acute edema. VISIBLE SKIN: No lesions or rashes. MUSCULOSKELETAL: Without any acute deformities. CENTRAL NERVOUS SYSTEM: Intact. LABORATORY DATA: CBC today, hemoglobin 9.4, hematocrit 28.2, platelet count were normal. BMP this morning, normal BUN and creatinine. Glucose mildly elevated at 135. Culture sputum preliminary normal ivis. Blood culture from 09/04 and 09/07 all showed no bacterial growth. IMPRESSION: 1. The patient with possibility of acute pneumonia, currently treated with antibiotic with known metastatic cancer of the lung, non-small cell. 2. Right pleural fluid, possibility of thoracentesis. 3. Chronic obstructive pulmonary disease as well with acute exacerbation. PLAN OF MANAGEMENT: The patient has been assessed at the bedside for the possibility of thoracentesis. Ultrasound of the chest was performed, right and the left chest. Minimal pleural fluids were noted in the right side and there was no fluid noted in the left side at all. At this time, the patient would not require any thoracentesis. The fluid is noted very small at the present time. The dose of Solu-Medrol will be decreased to 40 mg daily. Discontinuation of the current antibiotic as the current findings were not suggestive much of an active significant pneumonia. The dose of Solu-Medrol will be decreased to 40 mg daily as well. Possibility of discharge will be planned in the morning. He will be started on oral doxycycline 100 mg p.o. b.i.d. as well. All the cultures were noted as negative. Potential discharge home could be considered in the morning as well with current changes in the medications in the next 24 hours. [place], [place] PROGRESS NOTE NAME: LISSETH WELLS SR UNIT #: [id number] ROOM: 526 DOCTOR: MARYCRUZ CHOI MD BIRTHDATE: [birth year] MARYCRUZ MADERA MD CM:ASHELY [id number] MARYCRUZ BUTLER MD 09/09/17 1369 interface
--- NOTE | ~2017-09-07 | PR ---
[place], [place] PROGRESS NOTE NAME: LISSETH WELLS SR UNIT #: [id number] ROOM: 526 DOCTOR: MARYCRUZ CHOI MD BIRTHDATE: [birth year] DOS: 09/10/2017 SUBJECTIVE: The patient noted comfortable at this time, resting on the bed. Denies symptoms of chest pain. He does have some cough. There was no sputum expectoration. Denies any abdominal pain. The patient denies symptoms of hemoptysis. OBJECTIVE: VITAL SIGNS: The patient showed normal temperature, respiratory rate 20, heart rate 86, blood pressure 106/62. Pulse oxygen saturation noted on room air as 95% saturation on 2 liters nasal cannula, earlier 99% saturation. HEENT: Showed no acute change. NECK: Supple. CARDIOVASCULAR: S1, S2 audible. LUNGS: The patient was noted without any wheezing or crackles. Mild decreased breaths in lower portion of the lungs bilaterally. ABDOMEN: Soft, nontender. EXTREMITIES: Without any edema. LABORATORY DATA: CBC today: WBC count 6.9, hemoglobin 9.7, hematocrit of 29.2, platelet count were normal. The BMP noted normal BUN and creatinine. CO2 34. The culture of the sputum, normal viis. IMPRESSION: 1. The patient who has been known with history of metastatic nonsmall cell lung cancer, treated with chemotherapy as well. 2. Small pleural fluid, which has been noted with continued gradual improvement. 3. Possibility of acute pneumonia, which has been improving at this time gradually. 4. Acute exacerbation of chronic obstructive pulmonary disease, resolving as well. PLAN OF TREATMENT: No changes in plan of management for this patient. At this time, the patient could be considered for home discharge on oral medication that including antibiotics and the tapering prednisone from the pulmonary standpoint. All other p.o. treatment as ordered will be continued without any changes. [place], [place] PROGRESS NOTE NAME: LISSETH WELLS SR UNIT #: [id number] ROOM: 526 DOCTOR: MARYCRUZ CHOI MD BIRTHDATE: [birth year] MARYCRUZ MADERA MD CM:PNTRANS [phone] MARYCRUZ BUTLER MD 09/11/17 0112 interface
--- NOTE | ~2017-09-07 | CON ---
[place], [place] REPORT OF CONSULTATION [id number] UNIT #: [id number] ROOM: 526 DOCTOR: DARIAN BURCIAGA ED.D) BIRTHDATE: [birth year] DOS: 09/08/2017 HISTORY OF PRESENT ILLNESS: The patient is a 51-year-old male referred by the hospitalist for an evaluation of his depression and anxiety. At the present time, he is on the 5th floor at [facility]. He is a , his having recently from leukemia. He does have 4 children, 2 of them reside with him at the present time. He has been on SSI for many years. His family physician was formerly Dr. Calabrese, and his medical history is pertinent for cancer of the lung, pneumonia, and hypertension. His medications include MS Contin, Lopressor, Xarelto, Desyrel, Levaquin, vancomycin, Solu-Medrol in [place]. He was a smoker for many years. This patient was awake, alert and oriented in all three spheres. He denies any auditory or visual hallucinations or delusions. He states he is not suicidal. He is very depressed due to the fact that his recently from leukemia and due to the fact he has recently been diagnosed with terminal lung cancer. Apparently, Dr. Charles discussed his diagnosis with the patient. He has been extremely anxious, probably in part due to the fact that he is on multiple steroid type medications which probably exacerbated his anxiety. He does get some relief from Ativan. He is willing to take an antidepressant and I did discuss this with Dr. Lee, the hospitalist. I suggested possibly having hospice get involved, but apparently he is going to have chemotherapy in the immediate future. Again, if he is willing to take antidepressant medication and also additional medications for anxiety and sleep, this would probably be beneficial for the patient. DIAGNOSIS: Major depressive disorder-recurrent. RECOMMENDATIONS: The patient would probably benefit from antidepressant and antianxiety medications. Thank you very much for this consult. DARIAN BURCIAGA ED.D CM:CONSTR:REPORT OF CONSULTATION 1619 09/08/17 5506 interface
[~2017-09-07 07:59] MED LIST changes: +AMIODARONE HCL400 MG PO; +DILTIAZEM HCL120 M3 PO; +DULER200 INH; +METOPROLOL TART50 M1 PO; +MORPHINE S10 MG/5 ML PO; +MS CONTIN15 MG PO; +VITAMIN D31000 UNI1 PO
[2017-09-07 08:04] VITALS: BP 119/75
[2017-09-07 08:39] LABS: EOS % 0.2 % (1.0-4.0); HEMATOCRIT 32.2 % (42.0-52.0); HEMOGLOBIN 11.1 g/dl (14.0-18.0); LYMPH # 1.3 10*3/uL (1.3-4.4); LYMPH % 23.7 % (27.0-41.0); MEAN CELL VOLUME 80.9 fl (80.0-94.0); MEAN CORPUSCULAR HGB 27.9 pg (27.0-31.0); MEAN CORPUSCULAR HGB CONC 34.5 g/dl (33.0-37.0); MEAN PLATELET VOLUME 11.9 fl (9.6-12.3); MONO # 0.4 10*3/uL (0.1-1.0); MONO % 7.4 % (3.0-9.0); NEUT # 3.9 10*3/uL (2.3-7.9); NEUT % 68.5 % (47.0-73.0); PLATELET COUNT AUTOMATED 53 10*3/uL (130-400); RED BLOOD COUNT 3.98 10*6/uL (4.50-5.90); RED CELL DISTRI WIDTH 15.3 % (0-14.5); WHITE BLOOD COUNT 5.7 10*3/uL (4.8-10.8)
[2017-09-07 08:51] LABS: ACT PARTIAL THROMBO TIME 35.3 SECONDS (20.8-31.5); INTERNATIONAL NORM RATIO 1.6 (2.0-3.5)
[2017-09-07 08:54] LABS: ALBUMIN 2.7 gm/dl (3.1-4.5); ALKALINE PHOSPHATASE 253 U/L (45-117); BUN 8 mg/dl (7-24); CHLORIDE 103 mmol/L (98-107); POTASSIUM 3.4 mmol/L (3.5-5.1); SGOT/AST 43 IU/L (3-35); SGPT/ALT 89 U/L (12-78); SODIUM 139 mmol/L (136-145); TOTAL PROTEIN 6.2 gm/dL (6.4-8.2)
[2017-09-07 09:51] VITALS: BP 116/74
[2017-09-07 10:15] VITALS: BP 113/71
[2017-09-07] MEDS ORDERED: AMIODARONE HCL200 MG PO (10:39)
[2017-09-07] MEDS ORDERED: TRAZADONE HYDR100 MG PO (10:40)
[2017-09-07 12:00] VITALS: BP 102/64
[2017-09-07 16:00] VITALS: BP 110/65
[2017-09-07 20:58] VITALS: BP 120/65
[2017-09-08] VITALS: BP 114/68
[2017-09-08 06:33] LABS: HEMATOCRIT 27.7 % (42.0-52.0); HEMOGLOBIN 9.5 g/dl (14.0-18.0); LYMPH # 0.5 10*3/uL (1.3-4.4); LYMPH % 12.1 % (27.0-41.0); MEAN CELL VOLUME 80.1 fl (80.0-94.0); MEAN CORPUSCULAR HGB 27.5 pg (27.0-31.0); MEAN CORPUSCULAR HGB CONC 34.3 g/dl (33.0-37.0); MEAN PLATELET VOLUME 10.8 fl (9.6-12.3); MONO # 0.2 10*3/uL (0.1-1.0); NEUT # 3.4 10*3/uL (2.3-7.9); NEUT % 83.4 % (47.0-73.0); PLATELET COUNT AUTOMATED 57 10*3/uL (130-400); RED BLOOD COUNT 3.46 10*6/uL (4.50-5.90); RED CELL DISTRI WIDTH 15.1 % (0-14.5); WHITE BLOOD COUNT 4.1 10*3/uL (4.8-10.8)
[2017-09-08 06:35] LABS: ALBUMIN 2.5 gm/dl (3.1-4.5); ALKALINE PHOSPHATASE 215 U/L (45-117); BUN 9 mg/dl (7-24); CHLORIDE 100 mmol/L (98-107); CREATININE 0.68 mg/dL (0.70-1.30); PHOSPHOROUS 2.8 mg/dL (2.5-4.9); POTASSIUM 3.9 mmol/L (3.5-5.1); SGOT/AST 25 IU/L (3-35); SGPT/ALT 72 U/L (12-78); SODIUM 138 mmol/L (136-145); TOTAL PROTEIN 5.8 gm/dL (6.4-8.2)
[2017-09-08 08:00] VITALS: BP 120/72
[2017-09-08 12:00] VITALS: BP 108/71
[2017-09-08 16:00] VITALS: BP 105/54
[2017-09-08 20:00] VITALS: BP 114/59
[2017-09-09 00:32] VITALS: BP 111/61
[2017-09-09 06:15] LABS: BUN 11 mg/dl (7-24); CHLORIDE 104 mmol/L (98-107); CREATININE 0.72 mg/dL (0.70-1.30); POTASSIUM 4.1 mmol/L (3.5-5.1); SODIUM 141 mmol/L (136-145)
[2017-09-09 06:17] LABS: VANCOMYCIN TROUGH 14.5 ug/mL (10-20)
[2017-09-09 06:18] LABS: HEMATOCRIT 28.2 % (42.0-52.0); HEMOGLOBIN 9.4 g/dl (14.0-18.0); LYMPH # 0.7 10*3/uL (1.3-4.4); MEAN CELL VOLUME 82.5 fl (80.0-94.0); MEAN CORPUSCULAR HGB 27.5 pg (27.0-31.0); MEAN CORPUSCULAR HGB CONC 33.3 g/dl (33.0-37.0); MEAN PLATELET VOLUME 11.2 fl (9.6-12.3); MONO # 0.4 10*3/uL (0.1-1.0); MONO % 5.9 % (3.0-9.0); NEUT # 5.4 10*3/uL (2.3-7.9); NEUT % 83.3 % (47.0-73.0); RED BLOOD COUNT 3.42 10*6/uL (4.50-5.90); RED CELL DISTRI WIDTH 16.2 % (0-14.5); WHITE BLOOD COUNT 6.5 10*3/uL (4.8-10.8)
[2017-09-09 06:58] LABS: PLATELET COUNT AUTOMATED 111 10*3/uL (130-400)
[2017-09-09 08:00] VITALS: BP 112/69
[2017-09-09 12:00] VITALS: BP 100/58
[2017-09-09 16:00] VITALS: BP 107/63
[2017-09-09 20:00] VITALS: BP 109/54
[2017-09-10] VITALS: BP 121/65
[2017-09-10 06:30] LABS: HEMATOCRIT 29.2 % (42.0-52.0); HEMOGLOBIN 9.7 g/dl (14.0-18.0); LYMPH # 2.1 10*3/uL (1.3-4.4); LYMPH % 30.3 % (27.0-41.0); MEAN CELL VOLUME 83.7 fl (80.0-94.0); MEAN CORPUSCULAR HGB 27.8 pg (27.0-31.0); MEAN CORPUSCULAR HGB CONC 33.2 g/dl (33.0-37.0); MEAN PLATELET VOLUME 11.3 fl (9.6-12.3); MONO # 0.8 10*3/uL (0.1-1.0); MONO % 11.9 % (3.0-9.0); NEUT % 57.2 % (47.0-73.0); RED BLOOD COUNT 3.49 10*6/uL (4.50-5.90); RED CELL DISTRI WIDTH 16.9 % (0-14.5); WHITE BLOOD COUNT 6.9 10*3/uL (4.8-10.8)
[2017-09-10 06:35] LABS: PLATELET COUNT AUTOMATED 159 10*3/uL (130-400)
[2017-09-10 06:39] LABS: BUN 14 mg/dl (7-24); CHLORIDE 104 mmol/L (98-107); CREATININE 0.72 mg/dL (0.70-1.30); POTASSIUM 4.1 mmol/L (3.5-5.1); SODIUM 142 mmol/L (136-145)
[2017-09-10 08:00] VITALS: BP 106/62
[2017-09-10 12:00] VITALS: BP 110/70
[2017-09-10] MEDS ORDERED: PREDNISONE10 MG PO (15:46)
[2017-09-10] MEDS ORDERED: Vibra-Tab100 MG PO (15:46)
== END 2017-09-10 16:15 | disposition home or self-care (01) | DRG 193 ==
LOC: ED 07:59 → 5E 09:36 → EDHOLD 09:36 → 5E 09:57
PROVIDERS: Emergency Medicine; Internal Medicine; Internal Medicine Hospice and Palliative Medicine; Student in an Organized Health Care Education/Training Program
DX: J18.9 Pneumonia, unspecified organism (principal); E43 Unspecified severe protein-calorie malnutrition; D61.810 Antineoplastic chemotherapy induced pancytopenia; J96.11 Chronic respiratory failure with hypoxia; J94.2 Hemothorax; C78.7 Secondary malignant neoplasm of liver and intrahepatic bile duct; J44.0 Chronic obstructive pulmonary disease with (acute) lower respiratory infection; C79.51 Secondary malignant neoplasm of bone; D68.59 Other primary thrombophilia; C34.92 Malignant neoplasm of unspecified part of left bronchus or lung; I50.32 Chronic diastolic (congestive) heart failure; F33.9 Major depressive disorder, recurrent, unspecified; J44.1 Chronic obstructive pulmonary disease with (acute) exacerbation; F17.210 Nicotine dependence, cigarettes, uncomplicated; D63.0 Anemia in neoplastic disease; R13.10 Dysphagia, unspecified; F41.1 Generalized anxiety disorder; I11.0 Hypertensive heart disease with heart failure; D72.810 Lymphocytopenia; D69.6 Thrombocytopenia, unspecified; E87.6 Hypokalemia; G89.3 Neoplasm related pain (acute) (chronic); E55.9 Vitamin D deficiency, unspecified; I48.0 Paroxysmal atrial fibrillation; Z88.6 Allergy status to analgesic agent; Z88.5 Allergy status to narcotic agent; Z90.49 Acquired absence of other specified parts of digestive tract; Z80.0 Family history of malignant neoplasm of digestive organs; Z80.1 Family history of malignant neoplasm of trachea, bronchus and lung; Z79.899 Other long term (current) drug therapy; Z92.21 Personal history of antineoplastic chemotherapy; Z68.24 Body mass index [BMI] 24.0-24.9, adult; Z99.81 Dependence on supplemental oxygen

== ENCOUNTER 2017-09-18 11:07 | Emergency (ER) | payer OTHER ==
[~2017-09-18] VITALS: Ht 167.6 cm; Wt 68.0 kg
[~2017-09-18 11:07] MED LIST changes: +AMIODARONE HCL200 MG PO; +TRAZADONE HYDR100 MG PO; +Vibra-Tab100 MG PO
[2017-09-18 11:27] VITALS: BP 116/75
[2017-09-18 11:55] LABS: HEMATOCRIT 36.8 % (42.0-52.0); HEMOGLOBIN 12.4 g/dl (14.0-18.0); LYMPH # 1.8 10*3/uL (1.3-4.4); LYMPH % 40.1 % (27.0-41.0); MEAN CELL VOLUME 80.7 fl (80.0-94.0); MEAN CORPUSCULAR HGB 27.2 pg (27.0-31.0); MEAN CORPUSCULAR HGB CONC 33.7 g/dl (33.0-37.0); MEAN PLATELET VOLUME 9.4 fl (9.6-12.3); MONO # 0.1 10*3/uL (0.1-1.0); MONO % 2.3 % (3.0-9.0); NEUT # 2.5 10*3/uL (2.3-7.9); NEUT % 57.4 % (47.0-73.0); PLATELET COUNT AUTOMATED 527 10*3/uL (130-400); RED BLOOD COUNT 4.56 10*6/uL (4.50-5.90); RED CELL DISTRI WIDTH 16.8 % (0-14.5); WHITE BLOOD COUNT 4.4 10*3/uL (4.8-10.8)
[2017-09-18 12:04] LABS: ACT PARTIAL THROMBO TIME 24.3 SECONDS (20.8-31.5); INTERNATIONAL NORM RATIO 1.2 (2.0-3.5)
[2017-09-18 12:18] LABS: ALBUMIN 2.9 gm/dl (3.1-4.5); ALKALINE PHOSPHATASE 212 U/L (45-117); BUN 19 mg/dl (7-24); CHLORIDE 98 mmol/L (98-107); CREATININE 0.84 mg/dL (0.70-1.30); SGOT/AST 62 IU/L (3-35); SGPT/ALT 194 U/L (12-78); SODIUM 136 mmol/L (136-145); TOTAL PROTEIN 6.7 gm/dL (6.4-8.2)
[2017-09-18 12:20] LABS: TROPONIN I < 0.015 ng/ml (<0.045)
== END 2017-09-18 13:48 | disposition home or self-care (01) ==
LOC: ED 11:07
PROVIDERS: Emergency Medicine
DX: C34.90 Malignant neoplasm of unspecified part of unspecified bronchus or lung (principal); R06.00 Dyspnea, unspecified; J18.9 Pneumonia, unspecified organism; I48.91 Unspecified atrial fibrillation; J44.1 Chronic obstructive pulmonary disease with (acute) exacerbation; I11.0 Hypertensive heart disease with heart failure; I50.32 Chronic diastolic (congestive) heart failure; E87.6 Hypokalemia; Z90.49 Acquired absence of other specified parts of digestive tract; Z87.891 Personal history of nicotine dependence; Z88.5 Allergy status to narcotic agent; Z88.8 Allergy status to other drugs, medicaments and biological substances; Z79.899 Other long term (current) drug therapy

== ENCOUNTER → 2017-09-28 | Outpatient (CLI) | payer OTHER | END | disposition home or self-care (01) | LOC: RESCLI 02:54 | DX: J44.9 Chronic obstructive pulmonary disease, unspecified (principal); J40 Bronchitis, not specified as acute or chronic; I48.91 Unspecified atrial fibrillation; I10 Essential (primary) hypertension ==

== ENCOUNTER 2017-10-06 11:15 | Inpatient (IN) | payer OTHER ==
[~2017-10-06] VITALS: Ht 167.6 cm; Wt 57.2 kg
--- NOTE | ~2017-10-06 | CON ---
[place], [place] REPORT OF CONSULTATION [id number] UNIT #: [id number] ROOM: 420 DOCTOR: GRISELDA QUIÑONEZ MD BIRTHDATE: [birth year] DOS: 10/10/2017 HISTORY OF PRESENT ILLNESS: The patient is a pleasant 51-year-old [place] gentleman with a history of stage 4 metastatic lung cancer with poor prognosis, started complaining of increasing shortness of breath for a few days. He has been on oxygen, started feeling lightheaded, dizzy and short of breath. Subsequently, he came to the Emergency Department, is admitted and consulted for further evaluation and management. PAST MEDICAL HISTORY: Significant for stage 4 metastatic lung cancer, history of bipolar disorder, AFib, anxiety disorder, chronic diastolic congestive heart failure, COPD, depression, essential hypertension, general anxiety disorder, and vitamin D deficiency. PAST SURGICAL HISTORY: MECHELLE-guided cardioversion on 05/30/2017. Cholecystectomy and status post myringotomy with tube placement of both ears. SOCIAL HISTORY: No drugs. Former consumption of alcohol. Smoked about 10 packs per day in January 2016, then cut down to 4 packs per day in July 2017. FAMILY HISTORY: Mother with colon cancer, at age 54. Father with lung cancer, at age 50-60. ALLERGIES: PERCOCET AND OXYCODONE. MEDICATIONS: Amiodarone, vitamin D3, Colace, Dulera, DuoNeb, Ativan, MS Contin, morphine sulfate, Xarelto, and trazodone. REVIEW OF SYSTEMS CONSTITUTIONAL: No chills. No fatigue. No fever. No loss of appetite. No night sweats. No weakness. No weight loss. HEENT: No trouble swallowing. No loss of smell. No loss of hearing. No double vision. No pain. No discharge. ENT AND RESPIRATORY: No wheeze. No sore throat. No change in voice. No hearing loss. No nose bleed. No cough. No trouble breathing through nose. No shortness of breath. No coughing up blood. No epistaxis. CARDIOVASCULAR: No chest pain. No dizziness. No irregular heartbeat. No leg edema. No pain in legs while walking. No palpitations. No shortness of breath. DERMATOLOGIC: No acne. No hives. No laceration. No mole. No rash. ENDOCRINE: No cold intolerance. No diabetes. No fatigue. No hot flashes. No polydipsia. No polyuria. No urinating frequently. No weight loss. HEMATOLOGIC AND LYMPH: No fatigue. No easy bruising. GASTROENTEROLOGIC: No change in bowel habits. No indigestion. No frequent bloating. No vomiting blood. No abdominal cramping. No nausea. No heartburn. No vomiting. No abdominal pain. No dysphagia. No diarrhea. No constipation. No blood in stool. MALE REPRODUCTIVE: No testicular pain. No difficulty with erection. No diminished sexual drive. No penile discharge. MUSCULOSKELETAL: No back pain. No muscle pain or weakness. No neck pain. No [place], [place] REPORT OF CONSULTATION NAME: PRISCILLA SRLISSETH Rosana UNIT #: [id number] ROOM: [facility] DOCTOR: GRISELDA QUIÑONEZ MD BIRTHDATE: [birth year] tingling/numbness. No swelling/bruising. No osteoporosis treatment. OPHTHALMOLOGIC: No double vision. No diminished vision. No loss of vision. UROLOGIC: No dysuria. No frequent nighttime urination. No pain with urination. No difficulty urinating. No blood in urine. No frequent urination. No urinary incontinence. NEUROLOGIC: No loss of sensation in specific body area. No vertigo. No burning pain in feet. No trouble with balance. No trouble with coordination. No loss of consciousness. No loss of feeling/power. No confusion. No headache. No tingling/numbness. PSYCHOLOGIC: No tinnitus. No headaches. No shortness of breath. No weight decrease. No nausea. No vomiting. No abdominal discomfort. No constipation. No diarrhea. No depression. No anxiety. PHYSICAL EXAMINATION: GENERAL: A pleasant gentleman, very anxious, but in no apparent distress. VITAL SIGNS: Stable. Afebrile. HEENT: Oral mucosa appears intact. The external ears are normal in appearance. Nares are patent without lesions, exudates, erythema, or inflammation. Tongue is symmetrical. Uvula is midline. NECK AND THYROID: Neck supple without palpable masses. Trachea is midline. No thyromegaly. No carotid bruit or JVD. BREASTS: Normal. Nipples unremarkable. No drainage. No lumps felt on either side. HEART: Normal S1, S2 without significant murmur, rub, or gallop. LUNGS: Showed bilateral expiratory wheeze. ABDOMEN: No costovertebral angle tenderness. Soft. No organomegaly or masses. Nontender. No hernias present. Liver and spleen are not palpable. LYMPHATIC: No adenopathy noted in the cervical, supraclavicular, axillary, or inguinal regions. NEUROLOGIC: Nonfocal. Oriented to person, place, and time. MENTAL STATUS: Appropriate for mood and affect. PERIPHERAL PULSES: No varicosities. Femoral and pedal pulses are palpable. EXTREMITIES: Without cyanosis, clubbing, or edema. No gross anomalies. LABORATORY DATA: White count of 16.8, hemoglobin 9.8, hematocrit 30.0, platelet count 249. Chemistries: Glucose of 122, BUN of 15, creatinine 0.69, EGFR more than 60, sodium 137, potassium 4.5, chloride 99, bicarbonate 22, total protein 5.7, SGOT 93, SGPT 64, alkaline phosphatase 231. ASSESSMENT: 1. Stage 4 metastatic adenocarcinoma of the lung. 2. Chronic obstructive pulmonary disease exacerbation. 3. Pneumonitis. 4. Anemia of neoplastic disorder. 5. Leukocytosis, probably reactive. PLAN: He was due to start chemotherapy this week, but we will hold it till his overall condition gets better. I have discussed with the patient in detail about it. Son was present at the time of discussion. Overall, his prognosis is guarded. Ample time was given to the family to ask me questions. Daughter [place], [place] REPORT OF CONSULTATION NAME: PRISCILLA LISSETH FANG UNIT #: [id number] ROOM: 420 DOCTOR: GRISELDA QUIÑONEZ MD BIRTHDATE: [birth year] knows is aware of this situation. Thanks for consulting me and letting me participate in the care of this interesting patient. GRISELDA QUIÑONEZ MD CM:CONSTR:REPORT OF CONSULTATION 0837 10/10/17 2315 interface
--- NOTE | ~2017-10-06 | CON ---
[place], [place] REPORT OF CONSULTATION [id number] UNIT #: [id number] ROOM: 420 DOCTOR: MARYCRUZ CHOI MD BIRTHDATE: [birth year] DOS: 10/07/2017 PULMONARY CONSULTATION, EVALUATION AND MANAGEMENT REQUESTING PHYSICIAN: Hospitalist Service. REASON FOR CONSULTATION: Assess the patient for the current right-sided chest pain and shortness of breath. HISTORY OF PRESENT ILLNESS: This is a 51-year-old white male who has been known to me from the past with history of known cancer of the lung with left vocal cord paralysis. The patient has been treated with chemotherapy, presented to the Emergency in hospital on 10/06/2017. The patient was noted with symptoms of shortness of breath, which has been present for the past 2 to 3 days. He has been noted shortness of breath, which is occurring with mild exertional activity associated with pain, which is described in the right lower chest and right upper quadrant. The pain has been described to be present without any trauma. He denies any symptoms of significant cough. The patient denies any symptoms of hemoptysis. REVIEW OF SYSTEMS: CONSTITUTIONAL: Fatigue and tiredness reported. There were no symptoms of fever or chills. EYES: Denies burning, redness, discharge or pain. HENT: The patient was noted with symptoms of chronic hoarseness that remained persistent. There were no symptoms of sore throat. Denies any epistaxis. CARDIOVASCULAR: Denies anginal pain, edema of the lower extremities or palpitations. GASTROINTESTINAL: Denies dysphagia, nausea, vomiting, diarrhea, abdominal pain, hematemesis, melena or hematochezia. SKIN: Denies lesions or rashes. CENTRAL NERVOUS SYSTEM: No dizziness, headache, diplopia, syncopal episode or seizures. Remaining systems were reviewed for the patient, they were noted all negative. PAST MEDICAL HISTORY: 1. Known with history of metastatic adenocarcinoma diagnosed with liver biopsy, originating from the lung. 2. Atrial fibrillation as well. 3. Uncomplicated, moderate, persistent bronchial asthma. 4. Chronic obstructive pulmonary disease. 5. Chronic hypoxic respiratory failure. 6. Left vocal cord paralysis as well. PAST SURGICAL HISTORY: 1. Cholecystectomy. 2. CT-guided needle aspiration biopsy of the liver mass on 07/11/2017. SOCIAL HISTORY: The patient lives at home. He denies any history of alcohol [place], [place] REPORT OF CONSULTATION [id number] UNIT #: [id number] ROOM: 420 DOCTOR: MARYCRUZ CHOI MD BIRTHDATE: [birth year] use or illicit drug use. Tobacco use was noted up to 10 pack of cigarettes a day, started at the age of 18. Complete tobacco cessation done in June 2017. FAMILY HISTORY: Father at 70 years old from unknown medical illness. Mother at 50 years old due to history of colon cancer. MEDICATIONS: Administered for the patient noted use of amiodarone, Xarelto, trazodone, metoprolol tartrate, folic acid, Dulera, IV Solu-Medrol, DuoNeb, Rocephin, Zithromax, Ativan and other p.r.n. medications administration. ALLERGIES: DRUG ALLERGY HISTORY IS NOTED ALLERGY TO PERCOCET. PHYSICAL EXAMINATION: GENERAL: This is a 51-year-old male, who has been currently sitting on the bed at this time without any acute distress. Height of 5 feet 6 inches, weight of 126 pounds. The patient's BMI is 20.3. VITAL SIGNS: Which was recorded for the patient shows normal temperature, respiratory rate 18, heart rate 95, blood pressure 160/52. T-max of the patient noted normal on admission, in the last 24 hours. HEENT: Head was atraumatic. Eyes nonicterus. NECK: Supple. CARDIOVASCULAR: S1, S2 audible. LUNGS: The patient was noted with moderate decreased breath sounds in the right lower chest. There were no wheezing or crackles heard. Breaths were noted generally diminished, mild to moderate in the remaining lungs. ABDOMEN: Noted with some tenderness in right upper quadrant. Bowel sounds are present. CENTRAL NERVOUS SYSTEM: Noted as cranial nerves 2-12 intact. No focal deficit. VISIBLE SKIN: Noted without any lesions or rashes. MUSCULOSKELETAL: Without any acute deformities. LABORATORY DATA: Lactic acid noted at 1.7 on 10/06/2017 on admission. CBC of the patient, WBC count normal, hemoglobin 12.2, hematocrit 37.2, platelet count of 302,000. CMP of the patient that was done yesterday noted with normal BUN and creatinine. CBC this morning, hemoglobin 11, otherwise CBC remains normal. CMP this morning continues to show normal BUN and creatinine. Sodium is 135. Chest x-ray one-view, the patient was noted with what appears like small pleural fluid. The patient was noted with pleural thickening without any gross pulmonary infiltration. IMPRESSION: 1. The patient has severe pain, which is noted in the right lower chest wall with symptoms of shortness of breath. Differential diagnoses to be excluded in the pathology in the right upper quadrant such as cholecystitis and to rule out pulmonary embolism. The patient has been currently getting Xarelto for atrial fibrillation as well. 2. History of chronic left vocal cord paralysis, remains unchanged. 3. Previous history of nicotine abuse as well. [place], [place] REPORT OF CONSULTATION NAME: LISSETH WELLS SR UNIT #: [id number] ROOM: [facility] DOCTOR: SANTY BUTLER MD,MARYCRUZ BIRTHDATE: [birth year] PLAN OF TREATMENT: The assessment and management were discussed with Dr. Moncho Francis. CTA of the chest for the patient was ordered to exclude pulmonary emboli effectively. Ultrasound of the right upper quadrant will be ordered as well to rule out pathology of the right upper quadrant initially. If necessary, CT scan of the chest could be done as well. In the meantime, continue the patient's current other management as well. If there will be any evidence of pneumonia for the patient, certainly it would be addressed. Thank you for allowing me to participate in the care of this patient. MARYCRUZ MADERA MD CM:CONSTR:REPORT OF CONSULTATION 1340 10/08/17 0147 interface
--- NOTE | ~2017-10-06 | PR ---
[place], [place] PROGRESS NOTE [id number] UNIT #: [id number] ROOM: 420 DOCTOR: SANTY BUTLER MD,MARYCRUZ BIRTHDATE: [birth year] DOS: 10/10/2017 SUBJECTIVE: The patient was noted comfortable at this time, still complaining of pain in the chest, but there were symptoms of coughing, sputum expectoration described. There were no symptoms of hemoptysis. OBJECTIVE: VITAL SIGNS: For the patient, which has been recorded showed normal temperature, respiratory rate 20, heart rate 83, blood pressure 104/65-115/63. Pulse oxygen saturation on 2 L nasal cannula is 97% saturation. HEENT: Shows no acute change. NECK: Supple. CARDIOVASCULAR: S1, S2 audible. LUNGS: Decreased breath sounds in the right lung base, otherwise no abnormal findings. EXTREMITIES: Without any acute edema. IMPRESSION: 1. Metastatic lung cancer including to the spine with a referred pain in the chest. 2. History of known metastatic adenocarcinoma. PLAN OF TREATMENT: No change from pulmonary standpoint. Discharge planning for the patient to be done per primary care physician and attending. MARYCRUZ MADERA MD CM:ASHELY [phone] MARYCRUZ BUTLER MD 10/11/17 0156 interface
--- NOTE | ~2017-10-06 | PR ---
[place], [place] PROGRESS NOTE [id number] UNIT #: [id number] ROOM: 420 DOCTOR: SANTY BUTLER MD,MARYCRUZ BIRTHDATE: [birth year] DOS: 10/11/2017 SUBJECTIVE: The patient was noted about the same as previously. He had not reported any new acute complaints. The pain in the chest was described intermittently. Denies symptoms of shortness of breath, coughing, or sputum expectoration. OBJECTIVE: VITAL SIGNS: Temperature normal, respiratory rate 18, heart rate 90, blood pressure 106/67. Pulse oxygen saturation of the patient noted on 2 liters nasal cannula was 96% saturation. HEENT: Examination shows head was atraumatic. Eyes nonicterus. CARDIOVASCULAR: S1, S2 is audible. LUNGS: The patient was noted without any wheezing or crackles. ABDOMEN: Soft, nontender. IMPRESSION: Stable respiratory status with history of advanced adenocarcinoma of the lungs, which has been treated with chemotherapy. PLAN OF TREATMENT: No changes in medical therapy at this time will be necessary for this patient. Continue other previous treatment therapy as in progress. MARYCRUZ MADERA MD CM:PNTRANS [id number] MARYCRUZ BUTLER MD 10/11/17 2314 interface
--- NOTE | ~2017-10-06 | PR ---
[place], [place] PROGRESS NOTE NAME: LISSETH WELLS SR UNIT #: [id number] ROOM: 420 DOCTOR: MARYCRUZ CHOI MD BIRTHDATE: [birth year] DOS: 10/08/2017 SUBJECTIVE: He has been noted with reduction in the pain in the lower portion of the chest and in the right upper quadrant. Denies symptoms of nausea, vomiting, diarrhea, abdominal pain. OBJECTIVE: VITAL SIGNS: Normal temperature, respiratory rate 18, heart rate 88, blood pressure 117/73. The pulse oxygen saturation on 2 liters nasal cannula 96% saturation. HEENT: Showed no new change. NECK: Supple. CARDIOVASCULAR: S1, S2 is audible. LUNGS: Noted without any wheeze or crackle at the present time. ABDOMEN: Soft, nontender. LABORATORY DATA: Assessment of the CT of the chest was noted without any pulmonary embolism for this patient, noted major pulmonary arterial branches. lymph node enlargement noted previously. Several vertebral metastasis was identified for the patient with the loss of height of T6. Hepatic metastatic disease was also noted. Overall, stable. IMPRESSION: 1. Chest pain. The patient may be related to current compression fracture and metastatic malignancy involving the vertebral bodies for this patient with a referred pain could be likely. 2. Chronic small right pleural fluid. There was no evidence of acute pneumonia. 3. Hepatic metastases with extensive metastatic cancer, which was noted previously as adenocarcinoma.\E\ PLAN OF MANAGEMENT: Pain management. The patient has previously continuation of the other previous therapy, plan of management. Ongoing. Usual care. Supportive therapy. Continue chronic anticoagulation. [place], [place] PROGRESS NOTE NAME: LISSETH WELLS SR UNIT #: [id number] ROOM: 420 DOCTOR: MARYCRUZ CHOI MD BIRTHDATE: [birth year] MARYCRUZ MADERA MD CM:PNTRANS [id number] MARYCRUZ BUTLER MD 10/08/17 1243 interface
--- NOTE | ~2017-10-06 | PR ---
[place], [place] PROGRESS NOTE [id number] UNIT #: [id number] ROOM: 420 DOCTOR: GRISELDA QUIÑONEZ MD BIRTHDATE: [birth year] DOS: 10/11/2017 SUBJECTIVE: The patient is doing better. His breathing is much better. REVIEW OF SYSTEMS HEENT: No trouble swallowing. No double vision. No loss of vision. No pain. ENT AND RESPIRATORY: No wheeze. No change in voice. No cough. No shortness of breath. No coughing up blood. No epistaxis. CARDIOLOGIC: No chest pain. No dizziness. No irregular heartbeat. No leg edema. No palpitations. No shortness of breath. HEMATOLOGIC AND LYMPH: No past transfusion. No fatigue. No loss of appetite. No easy bruising. GASTROENEROLOGIC: No change in bowel habits. No vomiting blood. No abdominal cramping. No nausea. No vomiting. No diarrhea. No constipation. No blood in stool. MALE REPRODUCTIVE: No testicular pain. No penile discharge. MUSCULOSKELETAL: No back pain. No muscle pain or weakness. No tingling/numbness. UROLOGIC: No pain with urination. No difficulty urinating. No frequent urination. NEUROLOGIC: No burning pain in feet. No trouble with coordination. No loss of consciousness. No headache. No tingling/numbness. No memory loss. PHYSICAL EXAMINATION: GENERAL: Pleasant gentleman in no apparent distress. VITAL SIGNS: Stable, afebrile. HEENT: Normocephalic, atraumatic NECK AND THYROID: Supple. No JVD, thyromegaly, or lymphadenopathy. HEART: Normal S1, S2. Regular rate and rhythm. LUNGS: Show bilateral expiratory wheeze. ABDOMEN: Soft. Nontender, nondistended. Bowel sounds present. EXTREMITIES: Normal ROM. No clubbing. No edema. LABORATORY DATA: White count of 19.1, hemoglobin 9.8, hematocrit 16.4, platelet count of 242. ASSESSMENT: 1. Exacerbation of chronic obstructive pulmonary disease. 2. Leukocytosis, reactive. 3. Anemia of neoplastic disorder. PLAN: The patient is going home. He was due to start chemotherapy on Tuesday, but ended up here. He wants to come next week because of lack of transportation on the place. Ample time was given to the patient to ask me questions. [place], [place] PROGRESS NOTE NAME: LISSETH WELLS SR UNIT #: [id number] ROOM: 420 DOCTOR: GRISELDA QUIÑONEZ MD BIRTHDATE: [birth year] GRISELDA QUIÑONEZ MD CM:PNTING [phone] GRISELDA QUIÑONEZ MD 10/12/17 0112 interface
--- NOTE | ~2017-10-06 | EKG ---
[place], [place] ELECTROCARDIOGRAM REPORT NAME: LISSETH WELLS SR UNIT #: [id number] ROOM: 420 DOCTOR: SANTY BUTLER MD,MARYCRUZ BIRTHDATE: [birth year] DOS: 10/06/2017 Electrocardiogram done on 10/06/2017, at 12:00 p.m. Normal sinus rhythm noted. Heart rate 72 beats per minute. Nonspecific ST-T changes noted in the inferior leads. MARYCRUZ MADERA MD CM:EKGRPT:ELECTROCARDIOGRAM REPORT [id number] MARYCRUZ BUTLER MD
--- NOTE | ~2017-10-06 | PR ---
[place], [place] PROGRESS NOTE NAME: LISSETH WELLS SR UNIT #: [id number] ROOM: 420 DOCTOR: SANTY BUTLER MD,MARYCRUZ BIRTHDATE: [birth year] DOS: 10/09/2017 PULMONARY PROGRESS NOTE SUBJECTIVE: He has been noted essentially comfortable at this time. Still complaining of some pain in the chest, but not noted with any worsening. There were no symptoms of coughing, sputum expectoration or hemoptysis. OBJECTIVE: VITAL SIGNS: Showed normal temperature, respiratory rate 20, heart rate 87, blood pressure 116/70. Pulse oxygen saturation for the patient on room air was 89% saturation, with 2 liters 95% saturation. HEENT: No acute change. NECK: Supple. CARDIOVASCULAR: S1, S2 audible. LUNGS: The patient was noted without any wheeze or crackles at this time. ABDOMEN: Soft, nontender. EXTREMITIES: No edema. LABORATORY DATA: CBC: WBC count 13.9, hemoglobin 9.8. The BMP of patient with normal BUN and creatinine. IMPRESSION: The patient with pain in the chest with metastatic disease into the spine was also noted. The patient had ultrasound of the abdomen completed yesterday as well, shows surgically absent gallbladder without any biliary dilatation and hepatic metastases were identified as previously known. PLAN OF MANAGEMENT: No changes from the pulmonary standpoint for the patient. Discharge planning could be started for the patient. Continue pain medication, monitoring and management by Medical Oncology for the patient's metastatic cancer. Other supportive therapy ad plan of management and care. MARYCRUZ MADERA MD CM:PNTRANS [phone] MARYCRUZ BUTLER MD 10/10/17 0118 interface
[2017-10-06 11:24] VITALS: BP 98/69
[2017-10-06] MEDS ORDERED: NATURE'S BLEND F1 MG PO (11:33)
[2017-10-06] MEDS ORDERED: DULERA 200 MCG8.8 GM INH (11:34)
[2017-10-06 12:05] LABS: BASO % 0.3 % (0.0-1.0); EOS % 0.4 % (1.0-4.0); HEMATOCRIT 37.2 % (42.0-52.0); HEMOGLOBIN 12.2 g/dl (14.0-18.0); LYMPH # 1.8 10*3/uL (1.3-4.4); LYMPH % 19.5 % (27.0-41.0); MEAN CELL VOLUME 83.2 fl (80.0-94.0); MEAN CORPUSCULAR HGB 27.3 pg (27.0-31.0); MEAN CORPUSCULAR HGB CONC 32.8 g/dl (33.0-37.0); MEAN PLATELET VOLUME 9.8 fl (9.6-12.3); MONO # 1.3 10*3/uL (0.1-1.0); MONO % 14.9 % (3.0-9.0); NEUT # 5.7 10*3/uL (2.3-7.9); NEUT % 63.3 % (47.0-73.0); PLATELET COUNT AUTOMATED 302 10*3/uL (130-400); RED BLOOD COUNT 4.47 10*6/uL (4.50-5.90); RED CELL DISTRI WIDTH 19.7 % (0-14.5)
[2017-10-06 12:22] LABS: ALBUMIN 2.8 gm/dl (3.1-4.5); ALKALINE PHOSPHATASE 278 U/L (45-117); BUN 14 mg/dl (7-24); CHLORIDE 98 mmol/L (98-107); CREATININE 0.78 mg/dL (0.70-1.30); POTASSIUM 3.9 mmol/L (3.5-5.1); SGOT/AST 54 IU/L (3-35); SGPT/ALT 73 U/L (12-78); SODIUM 135 mmol/L (136-145); TOTAL PROTEIN 6.6 gm/dL (6.4-8.2)
[2017-10-06 12:30] LABS: TROPONIN I < 0.015 ng/ml (<0.045)
[2017-10-06 13:50] VITALS: BP 97/69
[2017-10-06] MEDS ORDERED: RESTORIL15 MG PO (15:04)
[2017-10-06] MEDS ORDERED: COLACE100 MG PO (15:07)
[2017-10-06 16:00] VITALS: BP 98/66
[2017-10-06 20:30] VITALS: BP 99/57
[2017-10-07 00:10] VITALS: BP 107/59
[2017-10-07 06:52] LABS: BASO % 0.1 % (0.0-1.0); HEMATOCRIT 34.4 % (42.0-52.0); HEMOGLOBIN 11.1 g/dl (14.0-18.0); LYMPH # 0.9 10*3/uL (1.3-4.4); LYMPH % 11.3 % (27.0-41.0); MEAN CELL VOLUME 82.9 fl (80.0-94.0); MEAN CORPUSCULAR HGB 26.7 pg (27.0-31.0); MEAN CORPUSCULAR HGB CONC 32.3 g/dl (33.0-37.0); MEAN PLATELET VOLUME 9.8 fl (9.6-12.3); MONO # 0.6 10*3/uL (0.1-1.0); MONO % 7.2 % (3.0-9.0); NEUT # 6.7 10*3/uL (2.3-7.9); NEUT % 80.3 % (47.0-73.0); PLATELET COUNT AUTOMATED 282 10*3/uL (130-400); RED BLOOD COUNT 4.15 10*6/uL (4.50-5.90); RED CELL DISTRI WIDTH 19.1 % (0-14.5); WHITE BLOOD COUNT 8.3 10*3/uL (4.8-10.8)
[2017-10-07 07:07] LABS: ALBUMIN 2.7 gm/dl (3.1-4.5); ALKALINE PHOSPHATASE 245 U/L (45-117); BUN 13 mg/dl (7-24); CHLORIDE 96 mmol/L (98-107); CREATININE 0.84 mg/dL (0.70-1.30); PHOSPHOROUS 3.3 mg/dL (2.5-4.9); POTASSIUM 4.6 mmol/L (3.5-5.1); SGOT/AST 36 IU/L (3-35); SGPT/ALT 68 U/L (12-78); SODIUM 135 mmol/L (136-145); TOTAL PROTEIN 6.2 gm/dL (6.4-8.2)
[2017-10-07 07:15] LABS: THYROID STIM HORMONE (HS) 0.617 uIU/ml (0.358-4.75)
[2017-10-07 08:00] VITALS: BP 115/78
[2017-10-07 12:00] VITALS: BP 106/72
[2017-10-07 16:00] VITALS: BP 108/59
[2017-10-07 20:00] VITALS: BP 111/75
[2017-10-08] VITALS: BP 119/70
[2017-10-08 06:21] LABS: HEMATOCRIT 30.7 % (42.0-52.0); HEMOGLOBIN 10.3 g/dl (14.0-18.0); MEAN CELL VOLUME 82.7 fl (80.0-94.0); MEAN CORPUSCULAR HGB 27.8 pg (27.0-31.0); MEAN CORPUSCULAR HGB CONC 33.6 g/dl (33.0-37.0); MEAN PLATELET VOLUME 10.1 fl (9.6-12.3); NUCLEATED RED BLOOD CELL 0.1 % (0.0-0.0); PLATELET COUNT AUTOMATED 282 10*3/uL (130-400); RED BLOOD COUNT 3.71 10*6/uL (4.50-5.90); RED CELL DISTRI WIDTH 19.9 % (0-14.5); WHITE BLOOD COUNT 13.5 10*3/uL (4.8-10.8)
[2017-10-08 06:47] LABS: ALBUMIN 2.7 gm/dl (3.1-4.5); BUN 17 mg/dl (7-24); CHLORIDE 99 mmol/L (98-107); CREATININE 0.82 mg/dL (0.70-1.30); POTASSIUM 4.3 mmol/L (3.5-5.1); SGOT/AST 92 IU/L (3-35); SGPT/ALT 65 U/L (12-78); SODIUM 137 mmol/L (136-145)
[2017-10-08 06:48] LABS: ALKALINE PHOSPHATASE 238 U/L (45-117)
[2017-10-08 07:40] LABS: PLATELET SUFFICIENCY NORMAL (NORMAL); TOTAL CELLS COUNTED 100 #CELLS
[2017-10-08 08:00] VITALS: BP 117/73
[2017-10-08 12:00] VITALS: BP 130/79
[2017-10-08 16:00] VITALS: BP 100/61
[2017-10-08 20:00] VITALS: BP 107/69
[2017-10-09] VITALS: BP 115/73
[2017-10-09 06:28] LABS: HEMATOCRIT 30.1 % (42.0-52.0); HEMOGLOBIN 9.8 g/dl (14.0-18.0); MEAN CELL VOLUME 84.3 fl (80.0-94.0); MEAN CORPUSCULAR HGB 27.5 pg (27.0-31.0); MEAN CORPUSCULAR HGB CONC 32.6 g/dl (33.0-37.0); MEAN PLATELET VOLUME 10.4 fl (9.6-12.3); NUCLEATED RED BLOOD CELL 0.1 10*3/uL (0.0-0.0); NUCLEATED RED BLOOD CELL 0.4 % (0.0-0.0); PLATELET COUNT AUTOMATED 253 10*3/uL (130-400); RED BLOOD COUNT 3.57 10*6/uL (4.50-5.90); RED CELL DISTRI WIDTH 20.3 % (0-14.5); WHITE BLOOD COUNT 13.9 10*3/uL (4.8-10.8)
[2017-10-09 06:54] LABS: ALBUMIN 2.6 gm/dl (3.1-4.5); BUN 15 mg/dl (7-24); CHLORIDE 100 mmol/L (98-107); CREATININE 0.77 mg/dL (0.70-1.30); POTASSIUM 4.9 mmol/L (3.5-5.1); SGOT/AST 106 IU/L (3-35); SGPT/ALT 60 U/L (12-78); SODIUM 138 mmol/L (136-145)
[2017-10-09 06:56] LABS: ALKALINE PHOSPHATASE 227 U/L (45-117); TOTAL PROTEIN 5.8 gm/dL (6.4-8.2)
[2017-10-09 07:09] LABS: PLATELET SUFFICIENCY NORMAL (NORMAL); SCHISTOCYTES FEW; TOTAL CELLS COUNTED 100 #CELLS
[2017-10-09 08:00] VITALS: BP 114/75
[2017-10-09 12:00] VITALS: BP 116/70
[2017-10-09 16:00] VITALS: BP 106/65
[2017-10-09 20:00] VITALS: BP 120/72
[2017-10-10] VITALS: BP 116/74
[2017-10-10 06:40] LABS: HEMOGLOBIN 9.8 g/dl (14.0-18.0); MEAN CELL VOLUME 84.5 fl (80.0-94.0); MEAN CORPUSCULAR HGB 27.6 pg (27.0-31.0); MEAN CORPUSCULAR HGB CONC 32.7 g/dl (33.0-37.0); MEAN PLATELET VOLUME 10.5 fl (9.6-12.3); NUCLEATED RED BLOOD CELL 0.1 10*3/uL (0.0-0.0); NUCLEATED RED BLOOD CELL 0.7 % (0.0-0.0); PLATELET COUNT AUTOMATED 249 10*3/uL (130-400); RED BLOOD COUNT 3.55 10*6/uL (4.50-5.90); RED CELL DISTRI WIDTH 20.5 % (0-14.5); WHITE BLOOD COUNT 16.8 10*3/uL (4.8-10.8)
[2017-10-10 07:20] LABS: PLATELET SUFFICIENCY NORMAL (NORMAL); POLYCHROMASIA SLIGHT; TOTAL CELLS COUNTED 100 #CELLS
[2017-10-10 07:26] LABS: ALBUMIN 2.6 gm/dl (3.1-4.5); ALKALINE PHOSPHATASE 231 U/L (45-117); BUN 15 mg/dl (7-24); CHLORIDE 99 mmol/L (98-107); CREATININE 0.69 mg/dL (0.70-1.30); POTASSIUM 4.5 mmol/L (3.5-5.1); SGOT/AST 93 IU/L (3-35); SGPT/ALT 64 U/L (12-78); SODIUM 137 mmol/L (136-145); TOTAL PROTEIN 5.7 gm/dL (6.4-8.2)
[2017-10-10 08:00] VITALS: BP 115/63
[2017-10-10 12:00] VITALS: BP 104/63
[2017-10-10 16:00] VITALS: BP 111/66
[2017-10-10 20:00] VITALS: BP 118/76
[2017-10-11] VITALS: BP 111/77
[2017-10-11 06:18] LABS: HEMATOCRIT 29.9 % (42.0-52.0); HEMOGLOBIN 9.8 g/dl (14.0-18.0); MEAN CELL VOLUME 84.2 fl (80.0-94.0); MEAN CORPUSCULAR HGB 27.6 pg (27.0-31.0); MEAN CORPUSCULAR HGB CONC 32.8 g/dl (33.0-37.0); MEAN PLATELET VOLUME 10.6 fl (9.6-12.3); NUCLEATED RED BLOOD CELL 0.1 10*3/uL (0.0-0.0); NUCLEATED RED BLOOD CELL 0.7 % (0.0-0.0); PLATELET COUNT AUTOMATED 242 10*3/uL (130-400); RED BLOOD COUNT 3.55 10*6/uL (4.50-5.90); RED CELL DISTRI WIDTH 20.3 % (0-14.5); WHITE BLOOD COUNT 19.1 10*3/uL (4.8-10.8)
[2017-10-11 06:35] LABS: ALBUMIN 2.4 gm/dl (3.1-4.5); BUN 15 mg/dl (7-24); CHLORIDE 100 mmol/L (98-107); POTASSIUM 4.7 mmol/L (3.5-5.1); SGOT/AST 54 IU/L (3-35); SGPT/ALT 63 U/L (12-78); SODIUM 139 mmol/L (136-145)
[2017-10-11 06:37] LABS: ALKALINE PHOSPHATASE 217 U/L (45-117); TOTAL PROTEIN 5.4 gm/dL (6.4-8.2)
[2017-10-11 06:51] LABS: TOTAL CELLS COUNTED 100 #CELLS
[2017-10-11 06:53] LABS: PLATELET SUFFICIENCY NORMAL (NORMAL); POLYCHROMASIA SLIGHT
[2017-10-11 08:00] VITALS: BP 106/67
[2017-10-11 12:00] VITALS: BP 114/74
[2017-10-11] MEDS ORDERED: AZITHROMYCIN500 M2 PO (13:07)
[2017-10-11] MEDS ORDERED: PREDNISONE10 MG PO (13:07)
== END 2017-10-11 15:41 | disposition home health service (06) | DRG 193 ==
LOC: ED 11:15 → EDHOLD 13:09 → 4E 13:09
PROVIDERS: Emergency Medicine; Internal Medicine; Internal Medicine Hospice and Palliative Medicine; Student in an Organized Health Care Education/Training Program
DX: J18.9 Pneumonia, unspecified organism (principal); E43 Unspecified severe protein-calorie malnutrition; C78.7 Secondary malignant neoplasm of liver and intrahepatic bile duct; C79.51 Secondary malignant neoplasm of bone; J44.0 Chronic obstructive pulmonary disease with (acute) lower respiratory infection; J38.01 Paralysis of vocal cords and larynx, unilateral; I48.0 Paroxysmal atrial fibrillation; C34.91 Malignant neoplasm of unspecified part of right bronchus or lung; C34.92 Malignant neoplasm of unspecified part of left bronchus or lung; I50.32 Chronic diastolic (congestive) heart failure; J44.1 Chronic obstructive pulmonary disease with (acute) exacerbation; D63.0 Anemia in neoplastic disease; I11.0 Hypertensive heart disease with heart failure; D72.810 Lymphocytopenia; R73.9 Hyperglycemia, unspecified; R74.0 Nonspecific elevation of levels of transaminase and lactic acid dehydrogenase [LDH]; E55.9 Vitamin D deficiency, unspecified; F31.9 Bipolar disorder, unspecified; F41.1 Generalized anxiety disorder; D72.829 Elevated white blood cell count, unspecified; Z68.20 Body mass index [BMI] 20.0-20.9, adult; Z87.891 Personal history of nicotine dependence; Z99.81 Dependence on supplemental oxygen; Z90.49 Acquired absence of other specified parts of digestive tract; Z80.0 Family history of malignant neoplasm of digestive organs; Z80.1 Family history of malignant neoplasm of trachea, bronchus and lung; Z88.8 Allergy status to other drugs, medicaments and biological substances; Z79.899 Other long term (current) drug therapy; Z82.49 Family history of ischemic heart disease and other diseases of the circulatory system; Z82.5 Family history of asthma and other chronic lower respiratory diseases

== ENCOUNTER → 2017-10-24 | Outpatient (CLI) | payer OTHER ==
[~2017-10-24] MED LIST changes: +AZITHROMYCIN500 M2 PO; +COLACE100 MG PO; +DULERA 200 MCG8.8 GM INH; +NATURE'S BLEND F1 MG PO; +RESTORIL15 MG PO
== END | disposition home or self-care (01) ==
LOC: RESCLI 04:13
DX: I48.2 Chronic atrial fibrillation (principal); C34.90 Malignant neoplasm of unspecified part of unspecified bronchus or lung; E55.9 Vitamin D deficiency, unspecified; J44.9 Chronic obstructive pulmonary disease, unspecified; I10 Essential (primary) hypertension; C78.7 Secondary malignant neoplasm of liver and intrahepatic bile duct; C79.51 Secondary malignant neoplasm of bone; F41.9 Anxiety disorder, unspecified

== ENCOUNTER → 2017-11-08 | Outpatient (CLI) | payer OTHER | END | disposition home or self-care (01) | LOC: MEDIPORT 09:02 | DX: C34.12 Malignant neoplasm of upper lobe, left bronchus or lung (principal) ==

== ENCOUNTER → 2017-11-08 | Outpatient (CLI) | payer OTHER | END | disposition home or self-care (01) | LOC: RESCLI 00:28 | DX: J44.9 Chronic obstructive pulmonary disease, unspecified (principal); F41.9 Anxiety disorder, unspecified; C78.7 Secondary malignant neoplasm of liver and intrahepatic bile duct; I10 Essential (primary) hypertension ==

== ENCOUNTER 2017-11-21 09:11 | Inpatient (IN) | payer OTHER ==
[~2017-11-21] VITALS: Ht 167.6 cm; Wt 62.6 kg
--- NOTE | ~2017-11-21 | PR ---
[place], [place] PROGRESS NOTE NAME: LISSETH WELLS SR UNIT #: [id number] ROOM: 526 DOCTOR: MARYCRUZ CHOI MD BIRTHDATE: [birth year] DOS: 11/23/2017 SUBJECTIVE: The patient noted with shortness of breath. The patient reported that shortness of breath is present continuously at times at rest and also worsened at night. This morning, the patient was sitting on the bed, appeared to be somewhat anxious. He has not been reporting symptoms of coughing, sputum expectoration or any chest pain. OBJECTIVE: VITAL SIGNS: Which were recorded showed normal temperature, respiratory rate of 16, heart rate of 99, blood pressure 109/61. The pulse oxygen saturation on 2 liters nasal cannula 97% saturation. HEENT: Examination shows head was atraumatic. Eyes nonicterus. NECK: Supple. CARDIOVASCULAR: S1, S2 is audible. LUNGS: Noted clear to auscultation bilaterally. ABDOMEN: Soft, nontender. EXTREMITIES: Without any acute edema. LABORATORY DATA: CBC this morning, hemoglobin 8.5, hematocrit 27.1, platelet count 65,000. IMPRESSION: 1. Resolved leukopenia noted with still anemia and thrombocytopenia. Shortness of breath noted with chronic obstructive pulmonary disease exacerbation and history of metastatic adenocarcinoma, seem to be responding to the current chemotherapy. 2. Possibility of general anxiety disorder, resulting in severe dyspnea more than his exacerbation of chronic obstructive pulmonary disease contributing to his shortness of breath at rest. The patient is already getting the anticoagulation as Xarelto 20 mg daily as well. PLAN OF MANAGEMENT: Psychiatric consultation would be obtained for this patient. The patient will be started on anxiolytic medications to help overcome the shortness of breath. Decrease Solu-Medrol further to 40 mg b.i.d. today, possibly 40 mg daily tomorrow. No other changes or additional testing needed except the chest x-ray that was ordered PA and lateral view; once available, the patient to be assessed. [place], [place] PROGRESS NOTE NAME: LISSETH WELLS SR UNIT #: [id number] ROOM: 526 DOCTOR: MARYCRUZ CHOI MD BIRTHDATE: [birth year] MARYCRUZ MADERA MD CM:PNTRANS [id number] MARYCRUZ BUTLER MD 11/24/17 0608 interface
--- NOTE | ~2017-11-21 | PR ---
[place], [place] PROGRESS NOTE NAME: LISSETH WELLS SR UNIT #: [id number] ROOM: 526 DOCTOR: GRISELDA QUIÑONEZ MD BIRTHDATE: [birth year] DOS: 11/22/2017 SUBJECTIVE: The patient is doing better. He is awake, alert, and responsive. He is supposed to get his throat checked on by Dr. Portillo. REVIEW OF SYSTEMS HEENT: No trouble swallowing. No double vision. No loss of vision. No pain. ENT AND RESPIRATORY: No wheeze. No change in voice. No cough. No shortness of breath. No coughing up blood. No epistaxis. CARDIOLOGIC: No chest pain. No dizziness. No irregular heartbeat. No leg edema. No palpitations. No shortness of breath. HEMATOLOGIC AND LYMPH: No past transfusion. No fatigue. No loss of appetite. No easy bruising. GASTROENEROLOGIC: No change in bowel habits. No vomiting blood. No abdominal cramping. No nausea. No vomiting. No diarrhea. No constipation. No blood in stool. MALE REPRODUCTIVE: No testicular pain. No penile discharge. MUSCULOSKELETAL: No back pain. No muscle pain or weakness. No tingling/numbness. UROLOGIC: No pain with urination. No difficulty urinating. No frequent urination. NEUROLOGIC: No burning pain in feet. No trouble with coordination. No loss of consciousness. No headache. No tingling/numbness. No memory loss. PHYSICAL EXAMINATION GENERAL: Pleasant gentleman in no apparent distress. VITAL SIGNS: Blood pressure 113/71, respirations 18, pulse 94, temperature 97.6. HEENT: Normocephalic, atraumatic NECK AND THYROID: Supple. No JVD, thyromegaly, or lymphadenopathy. HEART: Normal S1, S2. Regular rate and rhythm. LUNGS: Clear to auscultation and percussion. ABDOMEN: Soft. Nontender, nondistended. Bowel sounds present. EXTREMITIES: Normal ROM. No clubbing. No edema. LABORATORY DATA: White count of 4.1, hemoglobin 9.2, hematocrit 28.9, platelet count 72,000. Sodium 138, potassium 4.2, chloride 104, bicarbonate 26. EGFR is more than 60. AST 35, ALT 58, alkaline phosphatase 226. ASSESSMENT: 1. Metastatic lung cancer, status post chemotherapy. 2. Pancytopenia secondary to chemotherapy, though better. 3. Anemia of neoplastic disorder. 4. Thrombocytopenia. 5. Respiratory insufficiency. PLAN: Overall, he is doing better. His counts are stable. I expect the counts have dropped since he got chemotherapy recently. If they start dropping, then further intervention. In the meantime, continue broad-spectrum antibiotics and other supportive care. Ample time was given to the patient to ask me questions. [place], [place] PROGRESS NOTE NAME: LISSETH WELLS SR UNIT #: [id number] ROOM: 526 DOCTOR: GRISELDA QUIÑONEZ MD BIRTHDATE: [birth year] GRISELDA QUIÑONEZ MD CM:PNTING [id number] GRISELDA QUIÑONEZ MD 11/22/172230 interface
--- NOTE | ~2017-11-21 | PR ---
[place], [place] PROGRESS NOTE NAME: LISSETH WELLS SR UNIT #: [id number] ROOM: 526 DOCTOR: GRISELDA QUIÑONEZ MD BIRTHDATE: [birth year] DOS: 11/24/2017 SUBJECTIVE: The patient is doing better. He is awake, alert and responsive, though extremely anxious. PHYSICAL EXAMINATION VITAL SIGNS: Blood pressure 114/71, respirations 20, pulse 88, temperature 97.9. HEENT: Normocephalic, atraumatic NECK AND THYROID: Supple. No JVD, thyromegaly, or lymphadenopathy. HEART: Normal S1, S2. Regular rate and rhythm. LUNGS: Clear to auscultation and percussion. ABDOMEN: Soft. Nontender, nondistended. Bowel sounds present. EXTREMITIES: Normal ROM. No clubbing. No edema. LABORATORY DATA: White count of 8.2, hemoglobin 9.0, hematocrit 28.1, platelet count of 60,000. ASSESSMENT: 1. Metastatic lung cancer. 2. Extremely anxious, appears not resolving with the medication he is taking. 3. Anemia of neoplastic disorder. 4. Thrombocytopenia. PLAN: I discussed with him that his anxiety level has to go down. He will be getting a PET scan, depending on that further intervention will be done. At this point, I do not think so, he is a candidate for hospice. Discussed with the family in detail. GRISELDA QUIÑONEZ MD CM:PNTRANS [phone] GRISELDA QUIÑONEZ MD 11/24/17 224 interface
--- NOTE | ~2017-11-21 | CON ---
[place], [place] REPORT OF CONSULTATION NAME: LISSETH WELLS SR UNIT #: [id number] ROOM: 526 DOCTOR: GRISELDA QUIÑONEZ MD BIRTHDATE: [birth year] DOS: 11/21/2017 HISTORY OF PRESENT ILLNESS: The patient is a pleasant gentleman with a history of metastatic lung cancer, who underwent his second cycle of chemotherapy, started having shortness of breath for the past few days, which is associated with some weakness and subsequently was admitted for further evaluation and management. PAST MEDICAL HISTORY: Significant for metastatic lung cancer, adenocarcinoma of the lung, history of AFib, bipolar disorder, chronic diastolic CHF, COPD, depression, essential hypertension, hypercoagulable state, hyperglycemia, normocytic anemia, and history of pneumonitis. PAST SURGICAL HISTORY: MECHELLE-guided cardioversion on 05/30/2017, history of cholecystectomy, status of myringotomy and tube placement. SOCIAL HISTORY: Former consumption of alcohol, former smoker, used to smoke 10 packs per day in 2015 and then cut down to 4 packs per day in 2016. Denies any drinking. MEDICATIONS: Docusate sodium, amiodarone, trazodone, folic acid, lorazepam, morphine sulfate, and Dulera. ALLERGIES: ACETAMINOPHEN, OXYCODONE. FAMILY HISTORY: Mother at 54 with colon cancer. Father at 50-60 years of lung cancer. Also, has a family history of asthma, hypertension, and cancer. REVIEW OF SYSTEMS: CONSTITUTIONAL: No chills. No fatigue. No fever. No loss of appetite. No night sweats. No weakness. No weight loss. HEENT: No trouble swallowing. No loss of smell. No loss of hearing. No double vision. No pain. No discharge. ENT AND RESPIRATORY: No wheeze. No sore throat. No change in voice. No hearing loss. No nose bleed. No cough. No trouble breathing through nose. Increasing shortness of breath. No coughing up blood. No epistaxis. CARDIOVASCULAR: No chest pain. No dizziness. No irregular heartbeat. No leg edema. No pain in legs while walking. No palpitations. No shortness of breath. DERMATOLOGIC: No acne. No hives. No laceration. No mole. No rash. ENDOCRINE: No cold intolerance. No diabetes. No fatigue. No hot flashes. No polydipsia. No polyuria. No urinating frequently. No weight loss. HEMATOLOGIC AND LYMPH: No fatigue. No easy bruising. GASTROENTEROLOGIC: No change in bowel habits. No indigestion. No frequent bloating. No vomiting blood. No abdominal cramping. No nausea. No heartburn. No vomiting. No abdominal pain. No dysphagia. No diarrhea. No constipation. No blood in stool. MALE REPRODUCTIVE: No testicular pain. No difficulty with erection. No diminished sexual drive. No penile discharge. [place], [place] REPORT OF CONSULTATION NAME: LISSETH WELLS SR UNIT #: [id number] ROOM: 526 DOCTOR: GRISELDA QUIÑONEZ MD BIRTHDATE: [birth year] MUSCULOSKELETAL: No back pain. No muscle pain or weakness. No neck pain. No tingling/numbness. No swelling/bruising. No osteoporosis treatment. OPHTHALMOLOGIC: No double vision. No diminished vision. No loss of vision. UROLOGIC: No dysuria. No frequent nighttime urination. No pain with urination. No difficulty urinating. No blood in urine. No frequent urination. No urinary incontinence. NEUROLOGIC: No loss of sensation in specific body area. No vertigo. No burning pain in feet. No trouble with balance. No trouble with coordination. No loss of consciousness. No loss of feeling/power. No confusion. No headache. No tingling/numbness. PSYCHOLOGIC: No tinnitus. No headaches. No shortness of breath. No weight decrease. No nausea. No vomiting. No abdominal discomfort. No constipation. No diarrhea. No depression. No anxiety. PHYSICAL EXAMINATION: PHYSICAL EXAMINATION: GENERAL: This is a pleasant gentleman in no apparent distress, short of breath. VITAL SIGNS: Stable, afebrile. Blood pressure 110/78. Pulse is 95. HEENT: Oral mucosa appears intact. The external ears are normal in appearance. Nares are patent without lesions, exudates, erythema, or inflammation. Tongue is symmetrical. Uvula is midline. NECK AND THYROID: Neck supple without palpable masses. Trachea is midline. No thyromegaly. No carotid bruit or JVD. BREASTS: Normal. Nipples unremarkable. No drainage. No lumps felt on either side. HEART: Normal S1, S2, without significant murmur, rub, or gallop. LUNGS: Bilateral expiratory wheeze. ABDOMEN: No costovertebral angle tenderness. Soft. No organomegaly or masses. Nontender. No hernias present. Liver and spleen are not palpable. LYMPHATIC: No adenopathy noted in the cervical, supraclavicular, axillary, or inguinal regions. NEUROLOGIC: Nonfocal. Oriented to person, place, and time. MENTAL STATUS: Appropriate for mood and affect. PERIPHERAL PULSES: No varicosities. Femoral and pedal pulses are palpable. EXTREMITIES: Without cyanosis, clubbing, or edema. No gross anomalies. LABORATORY DATA: Sodium 136, potassium 3.7, chloride 100, bicarbonate 26. White count of 4.2, hemoglobin 11.6, hematocrit 35.8, platelet count of 93. ASSESSMENT: 1. Metastatic lung cancer. 2. Pancytopenia secondary to chemotherapy. 3. Exacerbation of chronic obstructive pulmonary disease. PLAN: We will keep a close watch on her counts. If they start dropping, then may need growth factors and transfusions on p.r.n. basis. He is due for a PET scan on depending on further intervention. In the meantime, we will keep a close watch. Had a detailed discussion with the patient about it and he seemed to understand it. Ample time was given to the patient to ask me questions. We will follow. [place], [place] REPORT OF CONSULTATION NAME: LISSETH WELLS SR UNIT #: [id number] ROOM: 526 DOCTOR: GRISELDA QUIÑONEZ MD BIRTHDATE: [birth year] Thanks for consulting and letting me participate in the care of this interesting patient. GRISELDA QUIÑONEZ MD CM:CONSTR:REPORT OF CONSULTATION 1430 11/22/17 0234 interface
--- NOTE | ~2017-11-21 | PR ---
[place], [place] PROGRESS NOTE NAME: LISSETH WELLS SR [id number] UN[facility] #: [id number] ROOM: 526 DOCTOR: SANTY BUTLER MD,MARYCRUZ BIRTHDATE: [birth year] DOS: 11/25/2017 SUBJECTIVE: The patient was noted comfortable at this time. Shortness of breath is improving. There were no symptoms of chest pain or hemoptysis. Denies symptoms of nausea or vomiting. The patient has been started on anxiolytic medication of Cymbalta 30 mg, increased 60 mg just yesterday on the patient's recommendation by Dr. Cornelius, who is a psychiatrist. OBJECTIVE: VITAL SIGNS: Normal temperature, respiratory rate 20, heart rate 86, blood pressure 112/69. Pulse ox saturation on 2 liters 99% saturation. HEENT: Examination shows no acute change. NECK: Supple. CARDIOVASCULAR: S1, S2 audible. LUNGS: Clear to auscultation bilaterally. ABDOMEN: Soft, nontender. EXTREMITIES: Without any acute edema. LABORATORY DATA: CBC today, hemoglobin 8.7, platelet count noted decreased at 50,000, WBC normal, creatinine was normal. IMPRESSION: 1. Thrombocytopenia secondary to chemotherapy with history of metastatic cancer of the lung. 2. Shortness of breath with history of chronic obstructive pulmonary disease, acute exacerbation, resolving. 3. Severe anxiety as well with current medical management. The patient has been already advised by Dr. Cornelius, which will be followed up. PLAN OF TREATMENT: From the pulmonary standpoint, the patient could be discharged on tapering dose of prednisone, whenever desired. In the meantime, continue supportive therapy, plan of management, and other care. MARYCRUZ MADERA MD CM:PNTRANS [id number] MARYCRUZ BUTLER MD 11/26/17 0148 interface
--- NOTE | ~2017-11-21 | PR ---
[place], [place] PROGRESS NOTE NAME: LISSETH WELLS SR UNIT #: [id number] ROOM: 526 DOCTOR: GRISELDA QUIÑONEZ MD BIRTHDATE: [birth year] DOS: 11/25/2017 SUBJECTIVE: The patient is extremely anxious. He shakes when he talks. He is awake, alert and responsive. PHYSICAL EXAMINATION: GENERAL: Pleasant gentleman in no apparent distress. VITAL SIGNS: Stable. He is afebrile. REVIEW OF SYSTEMS: HEENT: No trouble swallowing. No double vision. No loss of vision. No pain. ENT AND RESPIRATORY: No wheeze. No change in voice. No cough. No shortness of breath. No coughing up blood. No epistaxis. CARDIOLOGIC: No chest pain. No dizziness. No irregular heartbeat. No leg edema. No palpitations. No shortness of breath. HEMATOLOGIC AND LYMPH: No past transfusion. No fatigue. No loss of appetite. No easy bruising. GASTROENEROLOGIC: No change in bowel habits. No vomiting blood. No abdominal cramping. No nausea. No vomiting. No diarrhea. No constipation. No blood in stool. MALE REPRODUCTIVE: No testicular pain. No penile discharge. MUSCULOSKELETAL: No back pain. No muscle pain or weakness. No tingling/numbness. UROLOGIC: No pain with urination. No difficulty urinating. No frequent urination. NEUROLOGIC: No burning pain in feet. No trouble with coordination. No loss of consciousness. No headache. No tingling/numbness. No memory loss. PHYSICAL EXAMINATION: HEENT: Normocephalic, atraumatic NECK AND THYROID: Supple. No JVD, thyromegaly, or lymphadenopathy. HEART: Normal S1, S2. Regular rate and rhythm. LUNGS: Clear to auscultation and percussion. ABDOMEN: Soft. Nontender, nondistended. Bowel sounds present. EXTREMITIES: Normal ROM. No clubbing. No edema. ASSESSMENT: 1. Metastatic lung cancer. 2. Extreme anxiety. 3. Anemia of neoplastic disorder. 4. Thrombocytopenia. PLAN: I have discussed that he needs additional medication for anxiety, which is making his overall condition worse. He will be getting a PET scan as outpatient depending on the further intervention. In the meantime, keep a watch in the platelet count. [place], [place] PROGRESS NOTE NAME: GEOVANNAJAROD FANGLISSETH Wayne UNIT #: [id number] ROOM: 526 DOCTOR: GRISELDA QUIÑONEZ MD BIRTHDATE: [birth year] GRISELDA QUIÑONEZ MD CM:PNTRANS [phone] GRISELDA QUIÑONEZ MD 11/25/17 0910 interface
--- NOTE | ~2017-11-21 | CON ---
[place], [place] REPORT OF CONSULTATION NAME: LISSETH WELLS SR UNIT #: [id number] ROOM: 526 DOCTOR: MARJAN MERCADO MD BIRTHDATE: [birth year] DOS: 11/23/2017 CHIEF COMPLAINT: "I am so anxious and short of breath." HISTORY OF PRESENT ILLNESS: This is a 51-year-old white male who was admitted through the emergency room at [facility] due to increased shortness of breath. The patient reported extreme dyspnea and fatigue and malaise over the last 3-4 weeks prior to this admission. He does have a past medical history of metastatic adenocarcinoma of the lung with mets to the liver. The patient reports increased depression as well as increased anxiety. He notes poor sleep with sleep continuity disturbance and animal therapist awakening. He also notes anergia, anhedonia, hopeless, helpless feelings, inability to cope. The anxiety is overriding and it is consistent throughout the day. He also notes significant pain issues. His current medication regimen is ineffective at dealing with his current psychiatric symptoms. MENTAL STATUS: The patient is alert and oriented with some time gaps. Mood does seem overwhelmingly depressed. He is rather flat and blunted. He is outwardly anxious as well. There is no hypomania or matt. There are no overt auditory or visual hallucinations. No delusions, no paranoia. Short, intermediate, and long-term memory for the most part are fully intact. DIAGNOSES: Major depression, recurrent and generalized anxiety disorder. PLAN: I will discontinue his Restoril as I do not want to use a sedative hypnotic with somebody with significant breathing problems. His trazodone is ineffective, so I will discontinue that as well. I will start him on Cymbalta 30 mg at bedtime with a plan to rapidly titrate this up. This should help with depression, anxiety and his pain issues. I will also order briefly some Rozerem as a nonaddicting nonsedating sleep agent. Should you require further intervention, please feel free to contact me in the future. MARJAN MERCADO MD CM:CONSTR:REPORT OF CONSULTATION 1154 11/23/17 1329 interface
--- NOTE | ~2017-11-21 | PR ---
[place], [place] PROGRESS NOTE NAME: LISSETH WELLS SR UNIT #: [id number] ROOM: 526 DOCTOR: SANTY BUTLER MD,MARYCRUZ BIRTHDATE: [birth year] DOS: 11/24/2017 SUBJECTIVE: He has been noted comfortable at this time, resting on the bed. Shortness of breath has been improving. There were symptoms of chest pain or hemoptysis or symptoms of abdominal pain. OBJECTIVE: VITAL SIGNS: For the patient which were recorded showed normal temperature, respiratory rate 20, heart rate 88, blood pressure 140/71 this morning. Pulse oxygen saturation on 2 liters nasal cannula 100% saturation. HEENT: No acute change. NECK: Supple. CARDIOVASCULAR: S1, S2 audible. LUNGS: Clear bilaterally without any evidence of wheezing or crackles. ABDOMEN: Soft, nontender. EXTREMITIES: Without any acute edema. IMPRESSION: 1. Improvement in shortness of breath reported by the patient secondary to general anxiety with resolving chronic obstructive pulmonary disease, history of past metastatic cancer, adenocarcinoma treated with chemotherapy seemed to be responding well to the treatment. 2. Chronic left vocal cord paralysis, require further assessment. Further management as an outpatient. PLAN OF TREATMENT: From the pulmonary standpoint, the patient could be considered for home discharge whenever desired. Outpatient followup to be established for this patient for further followup of COPD. MARYCRUZ MADERA MD CM:PNTRANS [phone] MARYCRUZ BUTLER MD 11/25/17 0247 interface
--- NOTE | ~2017-11-21 | PR ---
[place], [place] PROGRESS NOTE NAME: LISSETH WELLS SR UNIT #: [id number] ROOM: 526 DOCTOR: GRISELDA QUIÑONEZ MD BIRTHDATE: [birth year] DOS: 11/23/2017 SUBJECTIVE: The patient is doing much better. He is awake, alert and responsive. REVIEW OF SYSTEMS: HEENT: No trouble swallowing. No double vision. No loss of vision. No pain. ENT AND RESPIRATORY: No wheeze. No change in voice. No cough. No shortness of breath. No coughing up blood. No epistaxis. CARDIOLOGIC: No chest pain. No dizziness. No irregular heartbeat. No leg edema. No palpitations. No shortness of breath. HEMATOLOGIC AND LYMPH: No past transfusion. No fatigue. No loss of appetite. No easy bruising. GASTROENEROLOGIC: No change in bowel habits. No vomiting blood. No abdominal cramping. No nausea. No vomiting. No diarrhea. No constipation. No blood in stool. MALE REPRODUCTIVE: No testicular pain. No penile discharge. MUSCULOSKELETAL: No back pain. No muscle pain or weakness. No tingling/numbness. UROLOGIC: No pain with urination. No difficulty urinating. No frequent urination. NEUROLOGIC: No burning pain in feet. No trouble with coordination. No loss of consciousness. No headache. No tingling/numbness. No memory loss. PHYSICAL EXAMINATION: GENERAL: He is a pleasant gentleman, in no apparent distress. VITAL SIGNS: Stable. He is awake, alert and responsive. Afebrile. HEENT: Normocephalic, atraumatic NECK AND THYROID: Supple. No JVD, thyromegaly, or lymphadenopathy. HEART: Normal S1, S2. Regular rate and rhythm. LUNGS: Clear to auscultation and percussion. ABDOMEN: Soft. Nontender, nondistended. Bowel sounds present. EXTREMITIES: Normal ROM. No clubbing. No edema. LABORATORY DATA: White count 4.1, hemoglobin 9.2, hematocrit 28.2, platelet count of 72,000. ASSESSMENT: 1. Metastatic lung cancer. 2. Extreme anxiety/depression. 3. Anemia of neoplastic disorder. 4. Thrombocytopenia. PLAN: Overall, he is doing better. He is being treated for anxiety and depression. He will be getting a PET scan depending on the further intervention. I discussed with the patient in detail. [place], [place] PROGRESS NOTE NAME: LISSETH WELLS SR UNIT #: [id number] ROOM: 526 DOCTOR: GRISELDA QUIÑONEZ MD BIRTHDATE: [birth year] GRISELDA QUIÑONEZ MD CM:PNTRANS [phone] GRISELDA QUIÑONEZ MD 11/23/179 interface
--- NOTE | ~2017-11-21 | CON ---
[place], [place] REPORT OF CONSULTATION NAME: [facility] [id number] UNIT #: [id number] ROOM: 526 DOCTOR: MARYCRUZ CHOI MD BIRTHDATE: [birth year] DOS: 11/22/2017 PULMONARY CONSULTATION CONSULTATION REQUESTED BY: Hospitalist services. REASON FOR CONSULTATION: To assess the patient current symptoms of shortness of breath with history of lung cancer. HISTORY OF PRESENT ILLNESS: A 51-year-old white male who has been very well known to me with past history of COPD with heavy nicotine dependence and a diagnosis of metastatic adenocarcinoma of the lung. The patient has been admitted to the hospital in 10/2017 as well. He has been treated and discharged home on 10/11/2017, treated for acute exacerbation of COPD. The patient stated that he has been having progressive increased shortness of breath occurring for the past 3 to 4 days. Shortness of breath has been noted with exertion and usually relieved at rest. Later on, he was complaining of some shortness of breath that was noted at rest as well. He was also noted with symptoms of tightness in the chest at times as well as intermittent wheezing. Denies any pain in the chest or hemoptysis. The patient does have mild cough, but there was no sputum expectoration. REVIEW OF SYSTEMS: CONSTITUTIONAL SYMPTOMS: Fatigue and tiredness reported, which is ongoing for the past 3-4 weeks. Denies symptoms of fever or chills. EYES: Denies any burning, redness or discharge. EARS, NOSE AND THROAT SYMPTOMS: Denies any sore throat, postnasal drainage, sinus pressure or pain. The patient has noted hoarseness secondary to left vocal cord paralysis related to the current lung malignant adenocarcinoma. CARDIOVASCULAR SYSTEM: Denies joint pain, edema or pain of lower extremity. GASTROINTESTINAL SYMPTOMS: Denies dysphagia, nausea, vomiting, diarrhea, abdominal pain, hematemesis, melena, hematochezia or recent abnormal weight loss history. CENTRAL NERVOUS SYSTEM: Denies dizziness, headache, diplopia, syncopal episode or tingling sensation of the extremities. SKIN: Denies lesions or rashes. Remaining systems were reviewed. They were noted all negative. PAST MEDICAL HISTORY: 1. History of metastatic adenocarcinoma diagnosis with liver metastatic lesion in 2017, currently receiving chemotherapy every month. 2. Atrial fibrillation. 3. Uncomplicated moderate persistent bronchial asthma. 4. COPD. 5. Chronic hypoxic respiratory failure. 4. Chronic left vocal cord paralysis. PAST SURGICAL HISTORY: 1. Cholecystectomy. [place], [place] REPORT OF CONSULTATION NAME: LISSETH WELLS SR UNIT #: [id number] ROOM: 526 DOCTOR: MARYCRUZ CHOI MD BIRTHDATE: [address]-guided needle aspiration biopsy of the liver mass/metastasis on 07/11/2017. 3. MediPort insertion in the right chest for chemotherapy. SOCIAL HISTORY: The patient lives at home. Denies any history of alcohol use or illicit drug use. Tobacco use was noted up to 10 pack of cigarettes per day from the age of [age] years old. Later on, the patient has decreased tobacco use with complete tobacco cessation noted since 06/2017. FAMILY HISTORY: The patient's father at the age of 70 years of unknown medical illnesses. Mother at 50 years with complications of colon cancer. CURRENT MEDICATIONS ADMINISTERED: Noted use of potassium phosphate, amiodarone, vitamin D, Xarelto, Protonix, Solu-Medrol 60 mg q. 12 hours, trazodone, metoprolol tartrate, folic acid, Dulera, DuoNeb, and lorazepam. DRUG ALLERGIES HISTORY: NOTED ALLERGIES TO PERCOCET. PHYSICAL EXAMINATION: GENERAL: A 51-year-old white male currently sitting comfortably in the bed without any acute distress. Height of 5 feet 6 inches, weight 135 pounds. One of his son was also present in the room with the patient. VITAL SIGNS: Showed normal temperature since admission, respiratory rate 18-17, heart rate of 110-94 with atrial fibrillation, blood pressure 110/78-113/71. Intake is 3700 mL, output ____ mL. Pulse oxygen saturation on 2 liters nasal cannula was 100% saturation, on room air was 97% saturation of oxygen. HEENT: Head was atraumatic. Eyes nonicterus. Oral mucosa was moist. NECK: Supple. CARDIOVASCULAR: S1, S2 audible without any added sounds. LUNGS: Gwon-hn-loaipraa decreased breath sounds noted in the lungs. The patient with decreased air entry. ABDOMEN: Soft, nontender. EXTREMITIES: Noted without any acute edema, clubbing or cyanosis. CENTRAL NERVOUS SYSTEM: Cranial nerves 2-12 intact. MUSCULOSKELETAL SYMPTOMS: Without any acute deformities. SKIN: Noted without any lesions or rashes. LABORATORY DATA: CBC that was done on 11/21/2017 on admission, WBC count 4.2, hemoglobin 11.6, hematocrit 35.7, and platelet count was normal. The PT, PTT were noted as INR 1.7, PTT normal. BMP that was done yesterday, normal BUN and creatinine. The LFTs were noted with AST 43, albumin 2.4, total protein 6.1, alkaline phosphatase 297. The CBC of this morning, WBC count 4.1, hemoglobin 9.2, hematocrit 28.9, platelet count 72,000. CMP this morning, BUN normal, creatinine normal, glucose 136. Platelets of the patient yesterday's CBC was noted as 93,000. Lactic acid 1.3 noted. DIAGNOSTIC STUDIES: The chest x-ray that was done this morning noted a MediPort in place. Prominent left hilar area was noted. There was no evidence of acute pulmonary infiltration. A small right pleural fluid was noted. Comparison made to the previous chest x-ray of 10/14/2017 essentially showed small pleural [place], [place] REPORT OF CONSULTATION NAME: PRISCILLA FANGLISSETH Wayne UNIT #: [id number] ROOM: 526 DOCTOR: SANTY BUTLER MD,MARYCRUZ BIRTHDATE: [birth year] fluid, which is chronic, which was also visible on the previous CTA of the chest on 10/07/2017. No other acute abnormality at this time was visible clearly on current chest x-ray. IMPRESSION: 1. The patient who has been currently admitted to the hospice seem to have acute exacerbation of chronic obstructive pulmonary disease. As well at this time, not sure if the patient has any superimposed acute bronchitis. Chronic obstructive pulmonary disease exacerbation would be considered likely. 2. Chronic hoarseness with left vocal cord paralysis. 3. Chronic hypoxic respiratory failure, stable. 4. Chronic small right pleural fluid, not amenable for any intervention known, unchanged since 10/2017, may be related to malignancy or other etiologies. 5. History of known metastatic adenocarcinoma, seemed to be responded well to the current administered chemotherapy. 6. History of heavy nicotine abuse. 7. History of bronchial asthma as well. 8. Pancytopenia related to the chemotherapy is very likely. PLAN OF TREATMENT: Continuation of the Solu-Medrol at current dose. Reduction of the dose based on the progression of the illness. At this time, the patient does not have any finding consistent with acute pneumonia. Another chest x-ray will be done tomorrow, PA and lateral view to reassess the progression of the current abnormalities noted on the chest x-ray. Other supportive therapy, plan of management as well. Usual treatment. The management component monitoring the pancytopenia per recommendation of Hematology/Oncology services, Dr. Charles. MARYCRUZ MADERA MD CM:CONSTR:REPORT OF CONSULTATION 1208 11/23/17 0407 interface
[2017-11-21 09:18] VITALS: BP 114/75
[2017-11-21 10:03] LABS: BASO % 0.5 % (0.0-1.0); EOS # 0.1 10*3/uL (0.0-0.4); EOS % 1.4 % (1.0-4.0); HEMATOCRIT 35.8 % (42.0-52.0); HEMOGLOBIN 11.6 g/dl (14.0-18.0); LYMPH # 1.2 10*3/uL (1.3-4.4); LYMPH % 28.4 % (27.0-41.0); MEAN CELL VOLUME 85.4 fl (80.0-94.0); MEAN CORPUSCULAR HGB 27.7 pg (27.0-31.0); MEAN CORPUSCULAR HGB CONC 32.4 g/dl (33.0-37.0); MEAN PLATELET VOLUME 9.6 fl (9.6-12.3); MONO # 0.4 10*3/uL (0.1-1.0); MONO % 10.3 % (3.0-9.0); NEUT # 2.5 10*3/uL (2.3-7.9); NEUT % 58.4 % (47.0-73.0); PLATELET COUNT AUTOMATED 93 10*3/uL (130-400); RED BLOOD COUNT 4.19 10*6/uL (4.50-5.90); WHITE BLOOD COUNT 4.2 10*3/uL (4.8-10.8)
[2017-11-21 10:12] LABS: ACT PARTIAL THROMBO TIME 35.1 SECONDS (20.8-31.5); INTERNATIONAL NORM RATIO 1.7 (2.0-3.5)
[2017-11-21 10:23] LABS: ALBUMIN 2.4 gm/dl (3.1-4.5); ALKALINE PHOSPHATASE 297 U/L (45-117); BUN 9 mg/dl (7-24); CHLORIDE 100 mmol/L (98-107); CREATININE 0.53 mg/dL (0.70-1.30); POTASSIUM 3.7 mmol/L (3.5-5.1); SGOT/AST 43 IU/L (3-35); SGPT/ALT 67 U/L (12-78); SODIUM 136 mmol/L (136-145); TOTAL PROTEIN 6.1 gm/dL (6.4-8.2)
[2017-11-21 10:25] LABS: TROPONIN I < 0.015 ng/ml (<0.045)
[2017-11-21 11:07] VITALS: BP 110/78
[2017-11-21 11:30] VITALS: BP 111/69
[2017-11-21 16:00] VITALS: BP 115/68
[2017-11-21 20:00] VITALS: BP 111/61
[2017-11-22] VITALS: BP 108/60
[2017-11-22 06:52] LABS: BASO % 0.2 % (0.0-1.0); LYMPH # 0.8 10*3/uL (1.3-4.4); LYMPH % 19.9 % (27.0-41.0); MEAN CORPUSCULAR HGB 27.4 pg (27.0-31.0); MEAN CORPUSCULAR HGB CONC 31.8 g/dl (33.0-37.0); MONO # 0.3 10*3/uL (0.1-1.0); MONO % 7.8 % (3.0-9.0); NEUT % 71.6 % (47.0-73.0); PLATELET COUNT AUTOMATED 72 10*3/uL (130-400); RED BLOOD COUNT 3.36 10*6/uL (4.50-5.90); RED CELL DISTRI WIDTH 19.9 % (0-14.5); WHITE BLOOD COUNT 4.1 10*3/uL (4.8-10.8)
[2017-11-22 07:04] LABS: HEMATOCRIT 28.9 % (42.0-52.0); HEMOGLOBIN 9.2 g/dl (14.0-18.0)
[2017-11-22 07:10] LABS: ALBUMIN 2.1 gm/dl (3.1-4.5); ALKALINE PHOSPHATASE 226 U/L (45-117); BUN 8 mg/dl (7-24); CHLORIDE 104 mmol/L (98-107); CREATININE 0.46 mg/dL (0.70-1.30); PHOSPHOROUS 2.3 mg/dL (2.5-4.9); POTASSIUM 4.2 mmol/L (3.5-5.1); SGOT/AST 35 IU/L (3-35); SGPT/ALT 58 U/L (12-78); SODIUM 138 mmol/L (136-145); TOTAL PROTEIN 5.2 gm/dL (6.4-8.2)
[2017-11-22 08:00] VITALS: BP 113/71
[2017-11-22 12:00] VITALS: BP 100/50
[2017-11-22 16:00] VITALS: BP 100/53; BP 93/60
[2017-11-22 20:00] VITALS: BP 103/54
[2017-11-23] VITALS: BP 116/69
[2017-11-23 06:58] LABS: BASO % 0.2 % (0.0-1.0); HEMATOCRIT 27.1 % (42.0-52.0); HEMOGLOBIN 8.5 g/dl (14.0-18.0); LYMPH # 0.8 10*3/uL (1.3-4.4); LYMPH % 12.6 % (27.0-41.0); MEAN CELL VOLUME 86.9 fl (80.0-94.0); MEAN CORPUSCULAR HGB 27.2 pg (27.0-31.0); MEAN CORPUSCULAR HGB CONC 31.4 g/dl (33.0-37.0); MEAN PLATELET VOLUME 11.5 fl (9.6-12.3); MONO # 0.5 10*3/uL (0.1-1.0); MONO % 7.7 % (3.0-9.0); NEUT # 5.1 10*3/uL (2.3-7.9); PLATELET COUNT AUTOMATED 65 10*3/uL (130-400); RED BLOOD COUNT 3.12 10*6/uL (4.50-5.90); RED CELL DISTRI WIDTH 20.5 % (0-14.5); WHITE BLOOD COUNT 6.5 10*3/uL (4.8-10.8)
[2017-11-23 08:00] VITALS: BP 109/61
[2017-11-23 16:00] VITALS: BP 103/61
[2017-11-23 20:00] VITALS: BP 105/61
[2017-11-24] VITALS: BP 112/67
[2017-11-24 06:15] LABS: BASO % 0.1 % (0.0-1.0); HEMATOCRIT 28.1 % (42.0-52.0); LYMPH % 12.4 % (27.0-41.0); MEAN CELL VOLUME 86.7 fl (80.0-94.0); MEAN CORPUSCULAR HGB 27.8 pg (27.0-31.0); MEAN PLATELET VOLUME 10.5 fl (9.6-12.3); MONO # 0.8 10*3/uL (0.1-1.0); MONO % 9.6 % (3.0-9.0); NEUT # 6.2 10*3/uL (2.3-7.9); NEUT % 76.3 % (47.0-73.0); NUCLEATED RED BLOOD CELL 0.2 % (0.0-0.0); PLATELET COUNT AUTOMATED 60 10*3/uL (130-400); RED BLOOD COUNT 3.24 10*6/uL (4.50-5.90); RED CELL DISTRI WIDTH 20.5 % (0-14.5); WHITE BLOOD COUNT 8.2 10*3/uL (4.8-10.8)
[2017-11-24 08:00] VITALS: BP 114/94
[2017-11-24 12:00] VITALS: BP 114/71
[2017-11-24 16:00] VITALS: BP 96/58
[2017-11-24 20:00] VITALS: BP 115/66
[2017-11-25] VITALS: BP 111/66
[2017-11-25 06:42] LABS: BASO % 0.1 % (0.0-1.0); HEMATOCRIT 27.7 % (42.0-52.0); HEMOGLOBIN 8.7 g/dl (14.0-18.0); LYMPH # 0.8 10*3/uL (1.3-4.4); MEAN CELL VOLUME 87.7 fl (80.0-94.0); MEAN CORPUSCULAR HGB 27.5 pg (27.0-31.0); MEAN CORPUSCULAR HGB CONC 31.4 g/dl (33.0-37.0); MEAN PLATELET VOLUME 10.2 fl (9.6-12.3); MONO # 0.7 10*3/uL (0.1-1.0); MONO % 8.8 % (3.0-9.0); NEUT # 6.1 10*3/uL (2.3-7.9); NEUT % 80.3 % (47.0-73.0); NUCLEATED RED BLOOD CELL 0.4 % (0.0-0.0); PLATELET COUNT AUTOMATED 50 10*3/uL (130-400); RED BLOOD COUNT 3.16 10*6/uL (4.50-5.90); RED CELL DISTRI WIDTH 21.2 % (0-14.5); WHITE BLOOD COUNT 7.6 10*3/uL (4.8-10.8)
[2017-11-25 07:06] LABS: CREATININE 0.58 mg/dL (0.70-1.30)
[2017-11-25 08:00] VITALS: BP 106/66
[2017-11-25] MEDS ORDERED: DULOXETINE HCL60 MG PO (11:05)
[2017-11-25] MEDS ORDERED: QUETIAPINE FUMA25 MG PO (11:05)
[2017-11-25] MEDS ORDERED: K-PHOS500 MG PO (11:07)
[2017-11-25] MEDS ORDERED: ALPRAZOLAM0.5 M3 PO (11:09)
[2017-11-25] MEDS ORDERED: PREDNISONE10 MG PO (11:10)
[2017-11-25 12:00] VITALS: BP 112/69
== END 2017-11-25 14:30 | disposition home health service (06) | DRG 190 ==
LOC: ED 09:11 → 5E 10:28 → EDHOLD 10:28 → 5E 10:29
PROVIDERS: Internal Medicine; Internal Medicine Hematology & Oncology; Nurse Practitioner Family; Registered Nurse
DX: J44.1 Chronic obstructive pulmonary disease with (acute) exacerbation (principal); D61.810 Antineoplastic chemotherapy induced pancytopenia; J96.11 Chronic respiratory failure with hypoxia; C78.7 Secondary malignant neoplasm of liver and intrahepatic bile duct; C79.51 Secondary malignant neoplasm of bone; E44.0 Moderate protein-calorie malnutrition; I48.1 Persistent atrial fibrillation; C34.90 Malignant neoplasm of unspecified part of unspecified bronchus or lung; I50.32 Chronic diastolic (congestive) heart failure; F33.9 Major depressive disorder, recurrent, unspecified; Z68.44 Body mass index [BMI] 60.0-69.9, adult; I11.0 Hypertensive heart disease with heart failure; F17.210 Nicotine dependence, cigarettes, uncomplicated; J38.01 Paralysis of vocal cords and larynx, unilateral; D72.819 Decreased white blood cell count, unspecified; F41.1 Generalized anxiety disorder; D63.0 Anemia in neoplastic disease; Y92.89 Other specified places as the place of occurrence of the external cause; T45.1X5A Adverse effect of antineoplastic and immunosuppressive drugs, initial encounter; Z88.6 Allergy status to analgesic agent; Z87.01 Personal history of pneumonia (recurrent); Z90.49 Acquired absence of other specified parts of digestive tract; Z80.0 Family history of malignant neoplasm of digestive organs; Z80.1 Family history of malignant neoplasm of trachea, bronchus and lung; Z82.5 Family history of asthma and other chronic lower respiratory diseases; Z82.49 Family history of ischemic heart disease and other diseases of the circulatory system; Z99.81 Dependence on supplemental oxygen; Z92.21 Personal history of antineoplastic chemotherapy; Z79.899 Other long term (current) drug therapy

== ENCOUNTER 2017-12-13 10:56 | Inpatient (IN) | payer OTHER ==
[~2017-12-13] VITALS: Ht 157.4 cm; Wt 61.2 kg
--- NOTE | ~2017-12-13 | PR ---
[place], [place] PROGRESS NOTE NAME: LISSETH WELLS SR UNIT #: [id number] ROOM: [facility] DOCTOR: SANTY BUTLER MD,MARYCRUZ BIRTHDATE: [birth year] DOS: 12/19/2017 PULMONARY PROGRESS NOTE SUBJECTIVE: The patient was noted with acute cardiopulmonary arrest early this morning, was resuscitated with the CPR. The patient intubated on mechanical ventilation. He was noted with severe hypotension as well ____ receiving 2 different vasopressors as epinephrine, Mike-Synephrine and dopamine. The patient was still noted with severe hypertension and bradyarrhythmias. Ventricular fibrillation was also noted. Currently, the patient noted calm and also unconscious. As I assessed the patient at the bedside on the mechanical ventilator, he has not been noted with any spontaneous breathing with apnea. Ventilation was noted. Multiple family members had been present at the bedside of this patient as well. OBJECTIVE: VITAL SIGNS: For the patient, which has been recorded showed the temperature noted as 96 degree Fahrenheit, respiratory rate 12, heart rate of 64, blood pressure 78 by palpation. The pulse oxygen saturation was recorded on 100% supplementation of oxygen as 92% saturation. HEENT: Examination shows eyes were closed for this patient. The patient currently orally intubated, orogastric tube noted in place. NECK: Supple. Pupils were noted mid dilated. CARDIOVASCULAR: S1, S2 was audible. LUNGS: The patient was noted without any wheeze or crackle. Breaths are noted generally decreased bilaterally. ABDOMEN: Soft, nontender. Bowel sounds present. EXTREMITIES: The patient was noted at this time with mottling of the skin for this patient. There was no acute edema. CENTRAL NERVOUS SYSTEM: The patient noted currently comatose. No spontaneous activity noted or with any deep painful stimuli. LABORATORY DATA: Lactic acid noted. The patient is 11.6. The arterial blood gas this morning as the 335, pH of 6.97, pCO2 of 40, and pO2 224. The CBC of the patient this morning WBC count 11.4, hemoglobin 7.9, hematocrit 26.2, and platelet count of only 11,000. PTT were noted elevated at 119. CMP of the patient this morning, BUN 53, creatinine 2.65. Potassium was 7.5. Chloride 110. Carbon dioxide 13. AST, ALT all noted elevated. Minimal elevation of troponin and repeat lactic acid at ____ still noted as 11.4. CMP repeated again this morning noted BUN 49, creatinine 2.48, and glucose 295. Potassium decreased at 6.7. CO2 of 11. The AST and ALT remains abnormal. Chest x-ray of the patient that was done for patient after resuscitation with intubation and mechanical ventilation noted with bilateral pulmonary infiltration noted in persistent interstitial markings. IMPRESSION: 1. The patient was noted with acute cardiopulmonary arrest. The patient currently noted with severe anoxic brain injury without any spontaneous breathing. 2. The patient was also noted with acute liver failure for this patient related [place], [place] PROGRESS NOTE NAME: LISSETH WELLS SR UNIT #: [id number] ROOM: [facility] DOCTOR: LIZETTE CHOI MDM BIRTHDATE: [birth year] to current hypertension and severe shock status. 3. The patient with history advanced adenocarcinoma, which has been treated with chemotherapy previously. 4. Pulmonary hemorrhage previously noted with worsening thrombocytopenia, possible central events with intracerebral bleed cannot be excluded. 3. Severe acute hyperkalemia secondary to acidosis any acute changes secondary to hypoperfusion and shock status. PLAN OF MANAGEMENT: The patient has developed multiorgan system failure for the patient. At this time, his condition will be considered terminally irreversible with current ongoing multiorgan system failure, which has occurred rapidly. PLAN OF TREATMENT: The patient would be recommended at this time, possible termination of mechanical ventilation. I just spoke with the patient as a community member and with the patient's family members. The patient has stated this to the couple of family members, her daughter f about no resuscitated after the patient with life support to be given in future in case of his, worsening of the overall medical status. It will be considered appropriate for the patient at this time because the patient terminal status at this time with advanced cancer, which has been noted adenocarcinoma and gradually worsening in spite of the previous treatment. The decision which has been considered terminally irreversible patient made by Dr. Prado primary care attending, I concurred with that. The patient certainly all the life support including the vasopressors and mechanical ventilation could be stopped per family member wishes, whenever desired by them. MARYCRUZ MADERA MD CM:PNTRANS 99 MARYCRUZ BUTLER MD 12/19/17 1242 interface
--- NOTE | ~2017-12-13 | PR ---
[place], [place] PROGRESS NOTE NAME: LISSETH WELLS SR UNIT #: [id number] ROOM: [facility] DOCTOR: LUIS ADOLPH GRIJALVA BIRTHDATE: [birth year] DOS: 12/19/2017 CODE BLUE NOTE A code blue was called. I proceeded immediately to the patient's room. Chest compressions were ongoing at that time. The patient was being bagged by the nurse. ACLS was on according to ACLS protocols. Epinephrine was administered in addition to chest compressions. The patient was found to be in asystole initially. After several rounds of epinephrine, the patient was intubated by myself. No RSI drugs were given. Cords were visualized using a laryngoscope. A 7-1/2 tube was placed at 24 cm at the lip. Confirmation was obtained by colorimetric CO2 detector auscultating over the lung beck in the abdomen. Breath sounds are found in the lungs and absent in the abdomen. Good tube bagging was seen, pulse ox at that time was in the mid 90s. The patient was unresponsive. Pupils were fixed and dilated. Skin was mottled. Pulses absent without compressions. An amp of bicarb was given, another round of epinephrine was given, pulse check was confirmed at patient's head, a pulse rate at that time was in the mid 40s. The patient was transported to the ICU. EKG was obtained, which showed a third-degree AV block. The patient was started on transcutaneous pacing along with 500 mcg of atropine. Blood pressure was 30/palp. Levophed and large boluses of normal saline were started. Levophed was titrated up to 25, blood pressure map was still in appropriate. Dopamine was started and titrated up to maximum dopamine dose. Blood pressure was still inappropriate. Further boluses of normal saline were administered. Epinephrine drip was started. We contacted [facility], talked to Dr. Olmedo. Dr. Olmedo given the fact the patient has a new right bundle-branch block on his EKG and third degree heart block with concern about a PE, we concurred. He recommended the initiation of heparin. The patient's platelets were 37. He was not on any anticoagulation at the time. Heparin was bolused and started as a drip according to the PE protocol at [facility]. Platelets were ordered given patient's thrombocytopenia. The patient was already on vancomycin, Levaquin and Zosyn for a healthcare-associated pneumonia. These were continued after initiation of epinephrine drip. The patient's blood pressure was found to be 90/35. The patient will be transferred to the CT scanner to check for a pulmonary embolism. The patient is unable to fly to [facility]. Given the inclement weather, he will be transported by [facility] by ground is approximately 2 hours at the end of the code. , the hospitalist, diamond sizer and sorter was contacted and findings and events were relayed to him. The patient's family cannot be contacted, tried multiple times, were not be able to get through them. Police was sent to the house. They knocked on the patient's family's door for 15 minutes, were unable to reach the family. Chest x-ray confirmed ET tube at 2-3 cm from the kera. A femoral line was placed for access, as the patient was on 3 pressors, getting platelets, heparin and multiple medicines and food boluses. He was placed under ultrasound guidance using the Seldinger technique by myself, Dr. Smith. Labs were drawn and are pending. [place], [place] PROGRESS NOTE NAME: LISSETH WELLS SR UNIT #: [id number] ROOM: [facility] DOCTOR: ADOLPH SMITH DO BIRTHDATE: [birth year] ADOLPH SMITH DO CM:PNTRANS [id number] ADOLPH SMITH DO 12/19/17 0631 interface
--- NOTE | ~2017-12-13 | PR ---
[place], [place] PROGRESS NOTE NAME: LISSETH WELLS SR UNIT #: [id number] ROOM: 424 DOCTOR: GRISELDA QUIÑONEZ MD BIRTHDATE: [birth year] DOS: 12/13/2017 The patient was seen because of metastatic lung cancer. The patient was in the office and was wobbling and subsequently advised to go to the ER, his platelets were low at that time. We reviewed the records and will follow. GRISELDA QUIÑONEZ MD CM:PNTRANS [id number] GRISELDA QUIÑONEZ MD 12/13/171916 interface
--- NOTE | ~2017-12-13 | PR ---
[place], [place] PROGRESS NOTE NAME[id number] UNIT #: [id number] ROOM: 424 DOCTOR: MARYCRUZ CHOI MD BIRTHDATE: [birth year] DOS: 12/15/2017 PULMONARY PROGRESS NOTE SUBJECTIVE: He had not been noted any further episode of hemoptysis. He has been noted symptoms of shortness of breath. There were no symptoms of chest pain or any abdominal pain. He denies symptoms of nausea or vomiting. The patient was noted afebrile. OBJECTIVE: VITAL SIGNS: For the patient which has been recorded showed normal temperature, respiratory rate 20, heart rate 91, blood pressure 110/70-93/62. The pulse oxygen saturation on 2 liters nasal cannula 95% saturation recorded. HEENT: Examination shows head was atraumatic. Eyes nonicterus. NECK: Supple. CARDIOVASCULAR: S1, S2 audible. LUNGS: Shows moderate decreased breath sounds, occasional crackles, no wheezing. ABDOMEN: Flat, soft, nontender. EXTREMITIES: No acute edema. CENTRAL NERVOUS SYSTEM: Cranial nerves 2-12 intact. MUSCULOSKELETAL: Without acute deformity. SKIN: Was noted without lesions or rashes. HISTORY OF PRESENT ILLNESS: The patient has symptoms of nausea, vomiting, diarrhea. Denies abdominal pain, hemoptysis, rather hematuria. No dizziness or headache. General weakness and fatigue were reported. Chronic hoarseness persistent. Remaining systems reviewed. They were noted all negative. LABORATORY DATA: The labs which was done this morning, BUN normal, creatinine was normal. Potassium 3.2. Sodium was normal. Albumin 1.18. CBC on 12/15/2017, hemoglobin of 10.5, hematocrit 33.1, platelet count 33,000. IMPRESSION: The CT scan of the chest, which was done without contrast was personally reviewed shows evidence of a persistent mass noted in the left upper lung. Skeletal metastases noted diffusely in the lungs. The patient noted with interstitial infiltration, which has been present in the several parts of the lung. IMPRESSION: 1. Advanced lung cancer. The patient noted metastatic with left vocal cord paralysis. 2. Bilateral pulmonary infiltration. The patient with possibility of pneumonia versus pulmonary hemorrhage to be considered because of the thrombocytopenia. There was not been any symptoms for this patient and findings consistent with acute pneumonia clinically at the present time. Pulmonary hemorrhage might be the low most likely cause resulting in hemoptysis. 3. The patient with a chronic hoarseness. 4. Hyperkalemia. 5. Abnormal LFTs noted, mild elevation of AST. The patient was also noted with [place], [place] PROGRESS NOTE NAME: LISSETH WELLS SR UNIT #: [id number] ROOM: 424 DOCTOR: SANTY BUTLER MD,MARYCRUZ BIRTHDATE: [birth year] hypoalbuminemia at 1.8. PLAN OF MANAGEMENT: At this time, the patient has been started empirically antibiotics that will be continued maybe for the next 24 hours until the culture has been known that might be discontinued later. Discontinue Xarelto because of hemoptysis. The patient currently suspected pulmonary hemorrhage. Monitor and manage thrombocytopenia. Usual care, other supportive therapy, plan of management and care. Additional treatment changes to be made for this patient with progressive illness. The patient would be continue other treatment therapy, plan of management and care plan. Usual care. present time with advanced metastatic malignancy. MARYCRUZ MADERA MD CM:PNTING [id number] MARYCRUZ BUTLER MD 12/15/17 1347 interface
--- NOTE | ~2017-12-13 | CON ---
[place], [place] REPORT OF CONSULTATION NAME: LISSETH WELLS SR [id number] UNIT #: [id number] ROOM: 424 DOCTOR: MARYCRUZ CHOI MD BIRTHDATE: [birth year] DOS: 12/14/2017 PULMONARY CONSULTATION, EVALUATION AND MANAGEMENT REQUESTING SERVICE: Hospitalist Services. REASON FOR CONSULTATION: To assess the patient for hemoptysis. HISTORY OF PRESENT ILLNESS: This is a 51-year-old white male patient, who has been admitted to the hospital under the Hospitalist Service on 12/13/2017. The patient presented to the Emergency Room yesterday with the family members as he has been reporting symptoms of having hemoptysis; hemoptysis noted only one time. He was also noted symptoms of shortness of breath as well. The patient was seen for chemotherapy administration by Dr. Charles. The patient resented to the Emergency Room, as the patient noted symptoms of shortness breath for further assessment. He has not been noted any symptoms of chest pain. The patient denies symptoms of coughing or wheezing. Hemoptysis has been described small amount for patient occurred only one time for this patient as per the patient. REVIEW OF SYSTEMS: CONSTITUTIONAL SYMPTOMS: He does report symptoms of fatigue and tiredness. There were symptoms, fever or chills. EYES: Denies any burning, redness, tenderness, or discharge. EARS, NOSE, THROAT SYMPTOMS: The patient possibly has epistaxis, but not sure. The patient has some draining back of the throat. CARDIOVASCULAR: Denies angina pain, edema, pain of the lower extremities. GASTROINTESTINAL SYMPTOMS: Denies dysphagia, nausea, vomiting, diarrhea, abdominal pain, hematemesis, melena, or hematochezia. SKIN: Denies abnormal lesions or rashes. MUSCULOSKELETAL: Without any acute deformities. There was no pain. CENTRAL NERVOUS SYSTEM: The patient denies dizziness, headache, diplopia, syncopal episodes. Remaining systems were reviewed, they were noted all negative. PAST MEDICAL HISTORY: The patient was known with history of chronic shortness of breath, related to the left vocal cord paralysis and history of COPD. Rest of past medical history, surgical history, social history, family history and home medication, review the patient record from the consultation, which was completed on 11/22/2017, and remains unchanged. All the history was reviewed with the patient. Please refer to the consultation document, which is available in the [facility] for further reference. CURRENT MEDICATIONS: Administered noted use of vitamin D, Colace, amiodarone, Xarelto, Protonix, Seroquel, Cymbalta, metoprolol tartrate, DuoNeb, folic acid, Levaquin, vancomycin and Zosyn. ALLERGIES: PERCOCET. [place], [place] REPORT OF CONSULTATION NAME: LISSETH WELLS SR UNIT #: [id number] ROOM: 424 DOCTOR: SANTY BUTLER MD,MARYCRUZ BIRTHDATE: [birth year] PHYSICAL EXAMINATION: GENERAL: The patient is a 51-year-old white male noted to be awake at the present time without any acute distress. Height of 5 feet 2 inches, weight of 135 pounds, BMI 24. VITAL SIGNS: Vital signs, which have been recorded showed the temperature noted as 99.6 degree Fahrenheit to normal temperature, respiratory rate 16-20, heart rate 117-86, blood pressure 120/75 to 121/73, pulse oxygen saturation the patient noted 2 liters nasal cannula 96% saturation. HEENT: Shows head was atraumatic. Eyes: No icterus. NECK: Supple. CARDIOVASCULAR: S1, S2 is audible. LUNGS: The patient was noted without any wheezing or crackles at the present time. Decreased breath sounds at right lower lung, the patients' chronic finding. ABDOMEN: Soft, nontender, bowel sounds present. EXTREMITIES: Without any acute edema. MUSCULOSKELETAL: Noted without acute deformities. CENTRAL NERVOUS SYSTEM: Noted nonfocal. EAR, NOSE AND THROAT SYMPTOMS: Symptoms for this patient, which was reported to be system deleted as and recorded new symptoms as hoarseness, which have been noted chronic, secondary to left recurrent laryngeal nerve paralysis involvement with the lung cancer was known. There was a possibility of some postnasal drainage, but there is an epistaxis as an outpatient, undetermined. There was no sinus being reported. There was no sore throat. LABORATORY AND DIAGNOSTIC DATA: Two view chest x-ray, which was done for this patient was noted with no acute pulmonary infiltration, small right pleural fluid, remains unchanged as compared to the chest x-ray on 11/23/2017. MediPort noted in place in the right hilar area. IMPRESSION: 1. The patient presumed hemoptysis, which has not been further present during this current hospitalization. The patient certainly does not show any manifestations for acute pneumonia. There were no gross pulmonary infiltration noted. 2. Chronic pleural fluid noted right side, maybe related to the lung cancer, small at this time, unchanged since his previous assessments. 3. History of chronic hoarseness with left recurrent laryngeal nerve paralysis, secondary to malignancy. 4. Metastatic adenocarcinoma noted, which has been treated with chemotherapy by Dr. Charles. PLAN OF MANAGEMENT: At this time, I am unable to pinpoint the patient current hemoptysis, which reported by the patient. Closely monitor the patient, any further hemoptysis will be done. At this time, the patient Xarelto will be placed on hold because of the current hemoptysis reported by the patient. CT scan of the chest would be done for this patient to exclude any pneumonia. No changes in the treatment for this patient; otherwise, will be needed. The Xarelto remained on hold for this patient at least for the next couple of days. Continue close observation for this patient as well. Collect any sputum for [place], [place] REPORT OF CONSULTATION NAME: PRISCILLA FANGLISSETH Wayne UNIT #: [id number] ROOM: 424 DOCTOR: MARYCRUZ CHOI MD BIRTHDATE: [birth year] Gram stain and culture. The patient was noted several broad spectrum intravenous antibiotic, which will be discontinued if there would be no pneumonia documented to the patient with a CT scan of the chest. CT scan of the chest will be done without contrast. ENT evaluation might be needed for this patient as well. Bronchoscopy could be done for this patient with hemoptysis occurred for this patient as well. Thank you for allowing me to participate in the care of this patient. MARYCRUZ MADERA MD CM:CONSTR:REPORT OF CONSULTATION 1320 12/15/17 0125 interface
--- NOTE | ~2017-12-13 | EKG ---
[place], [place] ELECTROCARDIOGRAM REPORT NAME: LISSETH WELLS SR UNIT #: [id number] ROOM: [facility] DOCTOR: SANTY BUTLER MD,MARYCRUZ BIRTHDATE: [birth year] DOS: 12/19/2017 TIME: 2:35 a.m. The patient was noted with junctional rhythm and wide QRS complexes. Possibility of old inferior myocardial infarction would be considered as well. Question of a right bundle branch block considered. MARYCRUZ MADERA MD CM:EKGRPT:ELECTROCARDIOGRAM REPORT [id number] MARYCRUZ BUTLER MD
--- NOTE | ~2017-12-13 | PR ---
[place], [place] PROGRESS NOTE NAME: LISSETH WELLS SR UNIT #: [id number] ROOM: 424 DOCTOR: SANTY BUTLER MD,MARYCRUZ BIRTHDATE: [birth year] DOS: 12/16/2017 SUBJECTIVE: The patient has been noted comfortable at this time, resting, but has not been reported any further symptoms of hemoptysis in the last 24 hours. He has not been noted symptoms of chest pain or shortness of breath. The patient remains unchanged. OBJECTIVE: VITAL SIGNS: For the patient, which have been recorded shows normal temperature, respiratory rate 20, heart rate 96, blood pressure 111/66. The pulse oxygen saturation on 2 liters nasal cannula 94% saturation. HEENT: Examination shows head was atraumatic. Eyes nonicterus. NECK: Supple. CARDIOVASCULAR: S1, S2 is audible. LUNGS: Noted without any wheezing or crackles. ABDOMEN: Soft, nontender. EXTREMITIES: Without any acute edema. LABORATORY DATA: CBC that was done for this patient on 12/16/2017, WBC count 11.5, hemoglobin 11.2, hematocrit 35.3, and platelet count 40,000. CMP this morning, normal BUN and creatinine. IMPRESSION: The patient is stable. Thrombocytopenia pulmonary, hemorrhage secondary to thrombocytopenia, on anticoagulation, currently noted stable. Less likely to be pneumonia. PLAN OF TREATMENT: Continuation of current therapy and plan of management at this time without any changes. Keep the patient off of any anticoagulation. Monitor thrombocytopenia, which has been noted currently stable in the last 24 hours. Consider discontinuation of the antibiotic completely at the present time. MARYCRUZ MADERA MD CM:PNTRANS [id number] MARYCRUZ BUTLER MD 12/16/17 1210 interface
--- NOTE | ~2017-12-13 | PR ---
[place], [place] PROGRESS NOTE NAME: LISSETH WELLS SR UNIT #: [id number] ROOM: 424 DOCTOR: MARYCRUZ CHOI MD BIRTHDATE: [birth year] DOS: 12/18/2017 PULMONARY PROGRESS NOTE SUBJECTIVE: The patient has been noted unresponsiveness for the patient with could be a seizure activity. The patient with shakes, which was noted from this morning. I have seen the similar episode. The patient at this time noted unresponsive and decide not to confirm the similar symptoms. The patient was not noted with any signs of respiratory distress. OBJECTIVE: VITAL SIGNS: Normal temperature, respiratory rate 22, heart rate of 106, blood pressure 90/74-135/86. The pulse oxygen saturation for the patient on 2 liters nasal cannula 94% saturation. HEENT: Examination shows head was atraumatic. Eyes nonicterus. CARDIOVASCULAR: S1, S2 audible. LUNGS: Noted without any crackles or wheezing at this time. ABDOMEN: Soft, nontender. EXTREMITIES: Without any edema. LABORATORY DATA: CBC today: WBC count 15.3, hemoglobin 11.3, platelet count still noted decreased 31,000. The BUN 34, creatinine normal. CO2 of 18. Chest x-ray yesterday noted without any new acute pulmonary infiltration. The patient with other abnormalities. IMPRESSION: 1. The patient pulmonary hemorrhage. 2. Persistent thrombocytopenia. 3. Seizure activity, rule out any intracerebral bleed for the patient with complication including metastatic disease from previous known advanced adenocarcinoma of the lung. PLAN OF MANAGEMENT: Consider obtaining CT scan of the head for the patient abnormality noted, such as any abnormal lesions or other. The patient needs to be transferred to another facility with the consent of the family members based on the code status. The patient to be assessed by the Neurosurgery and Neurology staff. Overall prognosis remains guarded. [place], [place] PROGRESS NOTE NAME: LISSETH WELLS SR UNIT #: [id number] ROOM: 424 DOCTOR: MARYCRUZ CHOI MD BIRTHDATE: [birth year] MARYCRUZ MADERA MD CM:PNTRANS [id number] MARYCRUZ BUTLER MD 12/18/172104 interface
--- NOTE | ~2017-12-13 | EKG ---
[place], [place] ELECTROCARDIOGRAM REPORT NAME: LISSETH WELLS SR UNIT #: [id number] ROOM: [facility] DOCTOR: SANTY BUTLER MD,MARYCRUZ BIRTHDATE: [birth year] DOS: 12/19/2017 ELECTROCARDIOGRAM The electrocardiogram of the patient shows evidence of complete heart block. MARYCRUZ MADERA MD CM:EKGRPT:ELECTROCARDIOGRAM REPORT [id number] MARYCRUZ BUTLER MD
--- NOTE | ~2017-12-13 | PR ---
[place], [place] PROGRESS NOTE NAME: LISSETH WELLS SR UNIT #: [id number] ROOM: 424 DOCTOR: SANTY BUTLER MD,MARYCRUZ BIRTHDATE: [birth year] DOS: 12/17/2017 SUBJECTIVE: He has not been noted any episodes of hemoptysis. Shortness breath was noted without any major changes. Denies any coughing, sputum expectoration or hemoptysis. OBJECTIVE: VITAL SIGNS: Normal temperature, respiratory rate 20, heart rate 77, blood pressure of 115/80. Pulse oxygen saturation noted 2 liters cannula is 97% saturation. HEENT: Head was atraumatic. Eyes nonicterus. NECK: Supple. CARDIOVASCULAR SYSTEM: S1, S2 audible. LUNGS: Noted clear to auscultation bilaterally. ABDOMEN: Soft, nontender. Bowel sounds present. EXTREMITIES: Without any acute edema. IMPRESSION: The patient with pulmonary hemorrhage with thrombocytopenia, history of lung cancer, which was noted metastatic, treated with chemotherapy. PLAN OF MANAGEMENT: No changes in the plan of care at this time. Keep the patient off the anticoagulation. Continue bronchodilators and other treatment plan of management. Chest x-ray to be repeated to reassess the patient prior to making discharge planning. MARYCRUZ MADERA MD CM:PNTRANS [id number] MARYCRUZ BUTLER MD 12/18/17 0104 interface
[~2017-12-13 10:56] MED LIST changes: +ALPRAZOLAM0.5 M3 PO; +DULOXETINE HCL60 MG PO; +K-PHOS500 MG PO; +QUETIAPINE FUMA25 MG PO
[2017-12-13 10:57] VITALS: BP 106/74
[2017-12-13 11:45] LABS: HEMATOCRIT 36.8 % (42.0-52.0); MEAN CORPUSCULAR HGB 28.7 pg (27.0-31.0); MEAN CORPUSCULAR HGB CONC 32.6 g/dl (33.0-37.0); NUCLEATED RED BLOOD CELL 0.2 % (0.0-0.0); PLATELET COUNT AUTOMATED 39 10*3/uL (130-400); RED BLOOD COUNT 4.18 10*6/uL (4.50-5.90); RED CELL DISTRI WIDTH 20.8 % (0-14.5); WHITE BLOOD COUNT 10.5 10*3/uL (4.8-10.8)
[2017-12-13 12:03] VITALS: BP 124/90
[2017-12-13 12:05] LABS: ACANTHOCYTES FEW; PLATELET SUFFICIENCY LOW (NORMAL); POLYCHROMASIA SLIGHT; TOTAL CELLS COUNTED 100 #CELLS
[2017-12-13 12:08] LABS: ALBUMIN 2.3 gm/dl (3.1-4.5); ALKALINE PHOSPHATASE 381 U/L (45-117); BUN 16 mg/dl (7-24); CHLORIDE 99 mmol/L (98-107); CREATININE 0.72 mg/dL (0.70-1.30); POTASSIUM 3.9 mmol/L (3.5-5.1); SGOT/AST 150 IU/L (3-35); SGPT/ALT 76 U/L (12-78); SODIUM 135 mmol/L (136-145); TOTAL PROTEIN 5.9 gm/dL (6.4-8.2)
[2017-12-13 13:46] VITALS: BP 123/69
[2017-12-13 14:19] VITALS: BP 116/88
[2017-12-13 16:00] VITALS: BP 118/79
[2017-12-13 20:00] VITALS: BP 103/68
[2017-12-14] VITALS: BP 101/69; BP 121/73
[2017-12-14 06:48] LABS: HEMATOCRIT 34.9 % (42.0-52.0); HEMOGLOBIN 11.2 g/dl (14.0-18.0); MEAN CELL VOLUME 88.4 fl (80.0-94.0); MEAN CORPUSCULAR HGB 28.4 pg (27.0-31.0); MEAN CORPUSCULAR HGB CONC 32.1 g/dl (33.0-37.0); PLATELET COUNT AUTOMATED 32 10*3/uL (130-400); RED BLOOD COUNT 3.95 10*6/uL (4.50-5.90); RED CELL DISTRI WIDTH 20.5 % (0-14.5); WHITE BLOOD COUNT 9.1 10*3/uL (4.8-10.8)
[2017-12-14 06:54] LABS: ALKALINE PHOSPHATASE 372 U/L (45-117); BUN 14 mg/dl (7-24); CHLORIDE 101 mmol/L (98-107); CREATININE 0.58 mg/dL (0.70-1.30); POTASSIUM 3.3 mmol/L (3.5-5.1); SGOT/AST 115 IU/L (3-35); SGPT/ALT 71 U/L (12-78); SODIUM 137 mmol/L (136-145); TOTAL PROTEIN 5.4 gm/dL (6.4-8.2)
[2017-12-14 07:55] LABS: ACANTHOCYTES FEW; PLATELET SUFFICIENCY LOW (NORMAL); TOTAL CELLS COUNTED 100 #CELLS
[2017-12-14 08:00] VITALS: BP 122/75
[2017-12-14 12:00] VITALS: BP 90/59
[2017-12-14 16:00] VITALS: BP 97/69
[2017-12-14 21:06] VITALS: BP 88/63
[2017-12-15] VITALS: BP 93/62
[2017-12-15 06:52] LABS: HEMATOCRIT 33.1 % (42.0-52.0); HEMOGLOBIN 10.5 g/dl (14.0-18.0); MEAN CELL VOLUME 90.2 fl (80.0-94.0); MEAN CORPUSCULAR HGB 28.6 pg (27.0-31.0); MEAN CORPUSCULAR HGB CONC 31.7 g/dl (33.0-37.0); PLATELET COUNT AUTOMATED 33 10*3/uL (130-400); RED BLOOD COUNT 3.67 10*6/uL (4.50-5.90); RED CELL DISTRI WIDTH 20.2 % (0-14.5); WHITE BLOOD COUNT 7.7 10*3/uL (4.8-10.8)
[2017-12-15 06:57] LABS: ALBUMIN 1.8 gm/dl (3.1-4.5); ALKALINE PHOSPHATASE 328 U/L (45-117); BUN 9 mg/dl (7-24); CHLORIDE 101 mmol/L (98-107); CREATININE 0.53 mg/dL (0.70-1.30); POTASSIUM 3.2 mmol/L (3.5-5.1); SGOT/AST 89 IU/L (3-35); SGPT/ALT 60 U/L (12-78); SODIUM 138 mmol/L (136-145)
[2017-12-15 07:32] LABS: BASOPHILS 1 % (0-1); PLATELET SUFFICIENCY LOW (NORMAL); POLYCHROMASIA SLIGHT; TOTAL CELLS COUNTED 100 #CELLS
[2017-12-15 08:00] VITALS: BP 111/70
[2017-12-15 12:00] VITALS: BP 103/64
[2017-12-15 16:00] VITALS: BP 114/69
[2017-12-15 20:00] VITALS: BP 104/75
[2017-12-16] VITALS: BP 100/64
[2017-12-16 06:45] LABS: HEMATOCRIT 35.3 % (42.0-52.0); HEMOGLOBIN 11.2 g/dl (14.0-18.0); MEAN CELL VOLUME 90.1 fl (80.0-94.0); MEAN CORPUSCULAR HGB 28.6 pg (27.0-31.0); MEAN CORPUSCULAR HGB CONC 31.7 g/dl (33.0-37.0); NUCLEATED RED BLOOD CELL 0.2 % (0.0-0.0); PLATELET COUNT AUTOMATED 40 10*3/uL (130-400); RED BLOOD COUNT 3.92 10*6/uL (4.50-5.90); RED CELL DISTRI WIDTH 20.4 % (0-14.5); WHITE BLOOD COUNT 11.5 10*3/uL (4.8-10.8)
[2017-12-16 07:03] LABS: ALBUMIN 1.9 gm/dl (3.1-4.5); ALKALINE PHOSPHATASE 335 U/L (45-117); BUN 9 mg/dl (7-24); CHLORIDE 103 mmol/L (98-107); CREATININE 0.57 mg/dL (0.70-1.30); POTASSIUM 4.1 mmol/L (3.5-5.1); SGOT/AST 81 IU/L (3-35); SGPT/ALT 59 U/L (12-78); SODIUM 139 mmol/L (136-145); TOTAL PROTEIN 5.1 gm/dL (6.4-8.2)
[2017-12-16 07:31] LABS: BASOPHILS 1 % (0-1); PLATELET SUFFICIENCY LOW (NORMAL); POLYCHROMASIA SLIGHT; TOTAL CELLS COUNTED 100 #CELLS
[2017-12-16 08:00] VITALS: BP 111/66
[2017-12-16 12:00] VITALS: BP 108/69
[2017-12-16 16:00] VITALS: BP 118/71
[2017-12-16 20:00] VITALS: BP 100/66
[2017-12-17] VITALS: BP 105/87
[2017-12-17 07:01] LABS: HEMATOCRIT 35.2 % (42.0-52.0); HEMOGLOBIN 11.3 g/dl (14.0-18.0); MEAN CELL VOLUME 89.6 fl (80.0-94.0); MEAN CORPUSCULAR HGB 28.8 pg (27.0-31.0); MEAN CORPUSCULAR HGB CONC 32.1 g/dl (33.0-37.0); PLATELET COUNT AUTOMATED 37 10*3/uL (130-400); RED BLOOD COUNT 3.93 10*6/uL (4.50-5.90); RED CELL DISTRI WIDTH 20.6 % (0-14.5); WHITE BLOOD COUNT 12.5 10*3/uL (4.8-10.8)
[2017-12-17 07:03] LABS: BUN 17 mg/dl (7-24); CHLORIDE 106 mmol/L (98-107); CREATININE 0.96 mg/dL (0.70-1.30); POTASSIUM 3.7 mmol/L (3.5-5.1); SODIUM 142 mmol/L (136-145)
[2017-12-17 07:32] LABS: PLATELET SUFFICIENCY LOW (NORMAL); POLYCHROMASIA SLIGHT; TOTAL CELLS COUNTED 100 #CELLS
[2017-12-17 07:33] LABS: BURR CELLS MODERATE
[2017-12-17 08:00] VITALS: BP 115/80
[2017-12-17 12:00] VITALS: BP 85/57
[2017-12-17 16:00] VITALS: BP 114/82
[2017-12-17 20:00] VITALS: BP 113/89
[2017-12-18] VITALS: BP 135/86
[2017-12-18 08:00] VITALS: BP 90/74
[2017-12-18 08:57] LABS: HEMATOCRIT 35.3 % (42.0-52.0); HEMOGLOBIN 11.3 g/dl (14.0-18.0); MEAN CELL VOLUME 89.6 fl (80.0-94.0); MEAN CORPUSCULAR HGB 28.7 pg (27.0-31.0); NUCLEATED RED BLOOD CELL 0.1 10*3/uL (0.0-0.0); NUCLEATED RED BLOOD CELL 0.4 % (0.0-0.0); PLATELET COUNT AUTOMATED 31 10*3/uL (130-400); RED BLOOD COUNT 3.94 10*6/uL (4.50-5.90); RED CELL DISTRI WIDTH 21.3 % (0-14.5); WHITE BLOOD COUNT 15.3 10*3/uL (4.8-10.8)
[2017-12-18 09:16] LABS: ALBUMIN 2.1 gm/dl (3.1-4.5); ALKALINE PHOSPHATASE 295 U/L (45-117); CHLORIDE 107 mmol/L (98-107); CREATININE 1.18 mg/dL (0.70-1.30); SGOT/AST 124 IU/L (3-35); SGPT/ALT 59 U/L (12-78); SODIUM 142 mmol/L (136-145); TOTAL PROTEIN 5.3 gm/dL (6.4-8.2)
[2017-12-18 09:19] LABS: BUN 34 mg/dl (7-24)
[2017-12-18 09:30] LABS: PLATELET SUFFICIENCY LOW (NORMAL); POLYCHROMASIA SLIGHT; TOTAL CELLS COUNTED 100 #CELLS
[2017-12-18 09:31] LABS: ACANTHOCYTES FEW
[2017-12-18 12:00] VITALS: BP 115/82
[2017-12-18 16:00] VITALS: BP 118/71
[2017-12-18 20:00] VITALS: BP 106/70
[2017-12-19] VITALS: BP 117/91
[2017-12-19 03:56] LABS: ABG HCO3 8.9 mmol/l (22-26); ABG O2 SATURATION 98.2 % (95-97); ARTERIAL BLOOD GAS PCO2 40.2 mmHg (35-45)
[2017-12-19 03:57] LABS: ABG BASE EXCESS -21.1 mmol/L (-2.0-2.0)
[2017-12-19 03:57] LABS: MEAN CORPUSCULAR HGB 28.4 pg (27.0-31.0); MEAN CORPUSCULAR HGB CONC 29.4 g/dl (33.0-37.0); NUCLEATED RED BLOOD CELL 0.7 10*3/uL (0.0-0.0); NUCLEATED RED BLOOD CELL 6.3 % (0.0-0.0); RED BLOOD COUNT 2.71 10*6/uL (4.50-5.90); RED CELL DISTRI WIDTH 23.5 % (0-14.5); WHITE BLOOD COUNT 11.4 10*3/uL (4.8-10.8)
[2017-12-19 03:58] LABS: ARTERIAL BLOOD GAS PH 6.973 (7.35-7.45)
[2017-12-19 04:00] VITALS: BP 94/30
[2017-12-19 04:01] LABS: HEMATOCRIT 26.2 % (42.0-52.0); HEMOGLOBIN 7.7 g/dl (14.0-18.0); MEAN CELL VOLUME 96.7 fl (80.0-94.0); PLATELET COUNT AUTOMATED 11 10*3/uL (130-400)
[2017-12-19 04:15] LABS: TOTAL CELLS COUNTED 100 #CELLS
[2017-12-19 04:16] LABS: BURR CELLS MANY; POLYCHROMASIA SLIGHT; SCHISTOCYTES MODERATE
[2017-12-19 04:17] LABS: PLATELET SUFFICIENCY LOW (NORMAL)
[2017-12-19 04:33] LABS: ALBUMIN 1.3 gm/dl (3.1-4.5); CREATININE 2.65 mg/dL (0.70-1.30); TOTAL PROTEIN 3.4 gm/dL (6.4-8.2)
[2017-12-19 04:53] LABS: POTASSIUM 7.5 mmol/L (3.5-5.1); TROPONIN I 0.111 ng/ml (<0.045)
[2017-12-19 06:09] LABS: CREATININE 2.48 mg/dL (0.70-1.30); TOTAL PROTEIN 2.6 gm/dL (6.4-8.2)
[2017-12-19 06:21] LABS: POTASSIUM 6.7 mmol/L (3.5-5.1)
[2017-12-19 08:00] VITALS: BP 70/0
== END 2017-12-19 10:10 | disposition expired | DRG 208 ==
LOC: ED 10:56 → EDHOLD 13:09 → 4E 13:09 → ICCU 12-19 02:33
PROVIDERS: Family Medicine; Internal Medicine; Registered Nurse; Student in an Organized Health Care Education/Training Program
PROC: 0BH17EZ Insertion of Endotracheal Airway into Trachea, Via Natural or Artificial Opening (ICD-10-PCS; principal; 2017-12-19)
PROC: 5A1935Z Respiratory Ventilation, Less than 24 Consecutive Hours (ICD-10-PCS; 2017-12-19)
PROC: 30233R1 Transfusion of Nonautologous Platelets into Peripheral Vein, Percutaneous Approach (ICD-10-PCS; 2017-12-19)
PROC: 5A12012 Performance of Cardiac Output, Single, Manual (ICD-10-PCS; 2017-12-19)
DX: J18.9 Pneumonia, unspecified organism (principal); R57.8 Other shock; E43 Unspecified severe protein-calorie malnutrition; G93.1 Anoxic brain damage, not elsewhere classified; J96.10 Chronic respiratory failure, unspecified whether with hypoxia or hypercapnia; J44.9 Chronic obstructive pulmonary disease, unspecified; D69.6 Thrombocytopenia, unspecified; C78.7 Secondary malignant neoplasm of liver and intrahepatic bile duct; C34.90 Malignant neoplasm of unspecified part of unspecified bronchus or lung; I48.1 Persistent atrial fibrillation; E87.1 Hypo-osmolality and hyponatremia; R65.10 Systemic inflammatory response syndrome (SIRS) of non-infectious origin without acute organ dysfunction; I50.32 Chronic diastolic (congestive) heart failure; E87.2 Acidosis; R04.89 Hemorrhage from other sites in respiratory passages; E55.9 Vitamin D deficiency, unspecified; F41.1 Generalized anxiety disorder; D64.9 Anemia, unspecified; I46.9 Cardiac arrest, cause unspecified; F31.9 Bipolar disorder, unspecified; I11.0 Hypertensive heart disease with heart failure; R73.9 Hyperglycemia, unspecified; Z51.5 Encounter for palliative care; E87.6 Hypokalemia; C32.0 Malignant neoplasm of glottis; E87.5 Hyperkalemia; Z66 Do not resuscitate; Z90.49 Acquired absence of other specified parts of digestive tract; Z99.81 Dependence on supplemental oxygen; Z80.0 Family history of malignant neoplasm of digestive organs; Z80.1 Family history of malignant neoplasm of trachea, bronchus and lung; Z82.5 Family history of asthma and other chronic lower respiratory diseases; Z82.49 Family history of ischemic heart disease and other diseases of the circulatory system; Z87.891 Personal history of nicotine dependence; Z88.5 Allergy status to narcotic agent; Z68.24 Body mass index [BMI] 24.0-24.9, adult; Z92.21 Personal history of antineoplastic chemotherapy